=== PATIENT | female | born 1940 | race Caucasian/White ===

== ENCOUNTER → 2020-11-16 07:06 | Outpatient (CLI) | payer MEDICARE, SELFPAY ==
[2020-11-16 18:17] LABS: SARS-CoV-2 RNA PCR Positive
== END ==
PROVIDERS: PCP Physician Assistant; Visit Provider Physician Assistant
DX: U07.1 COVID-19 (principal)
CPT/HCPCS: C9803; U0003; U0005

== ENCOUNTER → 2020-12-14 15:46 | Outpatient (CLI) | payer MEDICARE, SELFPAY ==
--- NOTE | ~2020-12-14 | XR_ITS ---
EXAMINATION: XR lumbar spine 2-3V DATE: 12/14/2020 16:31 INDICATION: Right hip pain. TECHNIQUE: 3 views of lumbar spine were obtained. COMPARISON: Lumbar spine radiographs 06/16/2009 FINDINGS: There is 21 degrees levoscoliosis of lumbar spine. There is 3 mm anterolisthesis of L2 on L 3. Vertebral body heights are normal. There is severely decreased disc height at L2-L3 and L3-L4 and moderately decreased disc height at L4-L5. There is multilevel severe facet joint osteoarthritis. Reji gical clips in the right upper quadrant are likely from cholecystectomy. IMPRESSION: 1. Severe lumbar spondylosis. 2. Lumbar levoscoliosis. Reviewed, dictated and finalized at location A.
--- NOTE | ~2020-12-14 | XR_ITS ---
EXAMINATION: XR hip RT min 3V w AP pelvis DATE: 12/14/2020 16:31 INDICATION: Right hip pain. TECHNIQUE: An anteroposterior view pelvis and 2 views of right hip were obtained. COMPARISON: None. FINDINGS: There is lumbar levoscoliosis and severe spondylosis. No fracture. Osteopenia is noted. The re is mild right hip osteoarthritis characterized by tiny marginal osteophytes. No joint space narrow ing. Left hip joint space is normal. IMPRESSION: 1. Mild right hip osteoarthritis. Reviewed, dictated and finalized at location A.
== END ==
PROVIDERS: PCP Physician Assistant; Visit Provider Physician Assistant
DX: M25.551 Pain in right hip (principal); M47.816 Spondylosis without myelopathy or radiculopathy, lumbar region; M41.86 Other forms of scoliosis, lumbar region; M16.11 Unilateral primary osteoarthritis, right hip
CPT/HCPCS: 72100; 73502

== ENCOUNTER → 2022-04-26 14:54 | Outpatient (CLI) | payer MEDICARE, SELFPAY ==
--- NOTE | ~2022-04-26 | XR_ITS ---
EXAMINATION: XR chest 2V Exam Date/Time: 04/26/2022 15:12 METAL DRILL PRESS OPERATOR HISTORY: Localized edema Comparison: 10/12/2003. RESULT: Lines, tubes, and devices: None. Lungs and pleura: Clear. Cardiomediastinal silhouette: Stable. Other: No acute osseous or upper abdominal finding. IMPRESSION: No acute cardiopulmonary process. Reviewed, dictated and finalized at location K. L DRILL PRESS OPERATOR
--- NOTE | ~2022-04-26 | XR_ITS ---
EXAM: XR tibia fibula RT 2V DATE: 04/26/2022 15:27 HISTORY: Contusion of right lower leg, initial encounter . COMPARISON: None available. FINDINGS: The tips of the medial and lateral malleoli are excluded from the [id number]. Decreased mineralization. No fracture or dislocation. No lytic or blastic lesion. Degenerative change in the ri ght knee. No erosion or periosteal change. Soft tissues within normal limits. IMPRESSION: No acute osseous finding in the visualized right tibia or fibula. The tips of the malleol i are excluded from the [id number]. Reviewed, dictated and finalized at location K. ING MACHINE OPERATOR IMPRESSION: No acute osseous finding in the visualized right tibia or fibula. T he tips of the malleoli are excluded from the [id number].
== END ==
PROVIDERS: PCP Physician Assistant; Visit Provider Physician Assistant
DX: R60.0 Localized edema (principal); S80.11XA Contusion of right lower leg, initial encounter; X58.XXXA Exposure to other specified factors, initial encounter
CPT/HCPCS: 71046; 73590

== ENCOUNTER 2022-05-08 09:37 | Outpatient (CLI) | payer MEDICARE, SELFPAY ==
--- NOTE | 2022-05-08 | ECHO_ITS ---
Patient Info Name: Tamar Solis Age: 82 years : 1940 Gender: Female Ht: 67 in Wt: 142 lbs BSA: 1.75 m2 HR: 89 bpm BP: 126 / 75 mmHg Heart Rhythm: Sinus Rhythm Technical Quality: Good Exam Date: 05/08/2022 9:55 AM Exam Location: [facility] Patient Status: Outpatient Admit Date: 05/08/2022 Staff Ordering Physician: ArdenSho PA-C Banking Consultant: Yeny Pompa RDCS Attending Provider: Sho De Guzman PA-C Exam Type: CA echo doppler color flow Study Info Indications R01.1 - Cardiac murmur, unspecified Complete two-dimensional, color flow and Doppler transthoracic echocardiogram is performed. Summary 1. Complete two-dimensional, color flow and Doppler transthoracic echocardiogram is performed. 2. Normal left and right ventricular size and systolic function. 3. Normal diastolic function. 4. Mild aortic regurgitation and trivial mitral regurgitation. Left Ventricle Left ventricular chamber dimension is normal. Left ventricular systolic function is normal, estimated at 60-65%. The left ventricular diastolic function is normal. Right Ventricle Right ventricular chamber dimension is normal. Left Atria Left atrial chamber dimension is normal. Right Atria Right atrial chamber dimension is normal. Aortic Valve The aortic valve is normal. There is trace aortic valve regurgitation. Pulmonic Valve The pulmonic valve is normal. Mitral Valve The mitral valve has normal leaflets. There is mild mitral valve regurgitation. Tricuspid Valve The tricuspid valve leaflets are normal. Pericardium/Pleural The pericardium appears normal. Aorta The aortic root size at the sinus of Valsalva is normal. Left Ventricular Outflow Tract Name Value Normal LVOT 2D LVOT Diameter 1.94 cm LVOT Doppler LVOT Peak Gradient 4 mmHg LVOT Mean Gradient 2 mmHg LVOT VTI 25.87 cm LVOT VTI/AV VTI Ratio 0.79 LVOT Stroke Volume 76.53 ml LVOT CO 5.09 l/min LVOT CI 2.91 L/min/m2 Pulmonic Valve Name Value Normal RVOT Doppler RVOT Peak Gradient 2 mmHg PV Doppler PV Peak Gradient 3 mmHg Mitral Valve Name Value Normal MV Doppler MV Decel Winston 770.27 cm/s2 MV PHT 0 s MV Area (PHT)
--- NOTE | ~2022-05-08 | US_ITS ---
Duplex Sonography of the bilateral lower extremities: Indication: Swelling Sagittal and transverse B-mode images as well as color-flow imaging were performed on the right and l eft femoral and popliteal veins. B-mode examination was done without and with compression in the tra nsverse plane. There is good visualization of the bilateral common femoral, proximal profunda femora l, superficial femoral, greater saphenous, and popliteal veins. Normal flow was seen on color-flow im aging. Normal compressibility was demonstrated. Bilateral peroneal and posterior tibial veins are al so patent. Impression: No evidence of deep vein thrombosis involving either lower extremity. Reviewed, dictated and finalized at location M. ORK OPERATIONS TECHNICIAN Impression: No evidence of deep vein thrombosis involving either lower extremit y.
== END 2022-05-08 09:38 | disposition home or self-care (01) ==
PROVIDERS: PCP Physician Assistant; Visit Provider Physician Assistant
DX: R01.1 Cardiac murmur, unspecified (principal); R60.0 Localized edema
CPT/HCPCS: 93306; 93970

== ENCOUNTER → 2022-06-01 14:22 | Outpatient (CLI) | payer MEDICARE, SELFPAY ==
--- NOTE | ~2022-06-01 | US_ITS ---
EXAMINATION: US pelvic complete DATE: 06/01/2022 15:17 INDICATION: Leg edema Comparison:No prior studies for comparison. TECHNIQUE: Multiple transabdominal sonographic images of the pelvis performed. FINDINGS: The uterus measures 5 x 2.8 x 4 cm. The endometrial complex measures 3 mm. The ovaries are not visualized. There is no free fluid in the pelvis. There are no abnormal masses seen on either side. IMPRESSION: 1. Unremarkable pelvic ultrasound. Reviewed, dictated and finalized at location A. RVISOR HAIRSPRING FABRICATION
== END ==
PROVIDERS: PCP Physician Assistant; Visit Provider Physician Assistant
DX: R60.0 Localized edema (principal)
CPT/HCPCS: 76856

== ENCOUNTER 2024-01-15 13:35 | Outpatient (CLI) | payer MEDICARE, SELFPAY ==
--- NOTE | ~2024-01-15 | XR_ITS ---
EXAMINATION: XR chest 2V DATE: 01/15/2024 13:48 INDICATION: Cough TECHNIQUE: frontal view of the chest was obtained. COMPARISON: Chest radiograph dated 04/26/2022 FINDINGS: The lungs are clear with no focal airspace opacities, pulmonary edema, pleural effusion or pneumothor ax. The cardiomediastinal silhouette is normal. Mild thoracic spondylosis. Cholecystectomy clips in r ight upper quadrant. IMPRESSION: 1. No acute cardiopulmonary disease. Reviewed, dictated and finalized at location A.
== END 2024-01-15 13:36 | disposition home or self-care (01) ==
LOC: MICIMG 13:37
PROVIDERS: PCP Physician Assistant; Visit Provider Physician Assistant
DX: R05.9 Cough, unspecified (principal)
CPT/HCPCS: 71046

== ENCOUNTER 2024-07-30 15:14 | Outpatient (CLI) | payer MEDICARE, SELFPAY ==
--- NOTE | ~2024-07-30 | US_ITS ---
EXAMINATION: US carotid duplex BI DATE: 07/30/2024 15:55 INDICATION: Carotid bruit TECHNIQUE: Grayscale, color Doppler, and pulsed Doppler images of the cervical carotid arteries were obtained. The degree of vessel stenosis is placed in one of the following categories: normal, <50%, 5 0-69%, >=70% but less than near-occlusion, near-occlusion, or total occlusion. Note that percent sten osis relative to normal distal artery lumen diameter is indirectly measured from velocity measurement s as described by Devni, et al. Radiology 2003; 229:340-346. Notes: Normal: Peak systolic velocity <125 centimeters/sec and no plaque <50%. Peak systolic velocity <125 ( EDV <40; ICA/CCA PSV ratio <2.0; used these factors only a tandem lesions or low cardiac output or co ntralateral disease) 50-69 %: PSV 125-230 (EDV 40-100; ratio 2-4) >= 70% but less than near occlusion: PSV greater than 230 (EDV > 100; ratio> 4.0) Near Occlusion: PSV that is variable; markedly narrowed lumen Occlusion: Absent flow on color/spectral Doppler and no lumen on vaughan scale. COMPARISON: None. FINDINGS: RIGHT: The right common carotid artery (CCA) peak systolic velocity (PSV) is 72 cm/s. The right internal car otid artery (ICA) PSV is 73 cm/s. The right ICA end-diastolic velocity (EDV) is 16 cm/s. The right IC A/CCA PSV ratio is 1.. The external carotid artery (ECA) PSV is 77 cm/s. There is antegrade flow in t he right vertebral artery. LEFT: The left CCA PSV is 65 cm/s. The left ICA PSV is 106 cm/s. The left ICA EDV is 27 cm/s. The left ICA/ CCA PSV ratio is 1.. The ECA PSV is 72 cm/s. There is antegrade flow in the left vertebral artery. IMPRESSION: 1. Less than 50% stenosis in the right internal carotid artery by sonographic criteria. 2. Less than 50% stenosis in the left internal carotid artery by sonographic criteria. Reviewed, dictated and finalized at location B. IMPRESSION: 1. Less than 50% stenosis in the right internal carotid artery by sonographic zaire reynoso. 2. Less than 50% stenosis in the left internal carotid artery by sonographic cinthia yanez.
--- OUTSIDE RECORDS SUMMARY | 2024-07-30 16:31 | XMS_ITS | Data Portability ---
Author Organization [place] [employer], Main Office Address [address] [place] [address] Care Team Providers Care Stamp Collector Name Role Phone VIBHA CHEN Primary Care Provider VIBHA CHEN Referring Provider [phone] Assessment Encounter Date Assessment Date Assessment LastModified by Organization Details LastModified Time 10/12/2022 10/12/2022 Patient presents knee pain left. She has arthritis and has had previous conservative treatment. We talked about surgical intervention and she is not ready for that at this point. She would like a shot of cortisone this done with 20 mg Kenalog 4 cc 1% lidocaine the left knee. She has valgus deformity grinding crepitus and pain. X-rays show [id number] arthritis. She will continue with her exercises. For prescription drug management will try Voltaren 75 mg for pain and inflammation. I will see her back in a month for follow-up and see how she is progressing at that point discussed. vince Not available 10/12/2022 14:05:51 Plan of Treatment Reminders Order Date Submit Date Provider Last Modified By Organization Details Last Modified Time Details Appointments None recorded. Lab hepatic function panel, serum 2022 024 [facility], [address], [place], [address], 4 03:50:19 BMP, serum or plasma 2022 024 [facility], [address], [place], [address], 4 03:50:18 CBC w/ auto diff 2022 024 [facility], [place], [address], 4 03:50:20 TSH + free T4, serum 2022 024 [facility], [address], [place], [address], 4 03:50:15 lipid panel, serum 2022 024 [facility], [address], [place], [address], 4 03:50:17 Referral None recorded. Procedures injection/a spiration joint/bursa (PROC) - in office procedure, administere d by provider 2022 023 [email or web address] In-Office Order, Internal Use Only DO Not Attach Compendium DO Not Attach Compendium, Do Not Delete/merge, [id number] 3 13:40:46 Surgeries None recorded. Imaging None recorded. Medication Orders Kenalog 10 mg/mL suspension for injection [email or web address] [id number], [address], [id number], 3 15:12:11 ropivacaine (PF) 5 mg/mL (0.5 %) injection solution 2022 023 [email or web address] 4 [facility] #[id number], [address], [id number], 3 15:12:24 diclofenac sodium 75 mg tablet,miri yed release 2022 023 [email or web address] 4 [facility] #[id number], [address], [id number], 3 11:25:38 Patient TargetsNo targets recorded. Patient InstructionsNo instructions recorded. Reason for Referral None Reported. Results Created Date Observation Date Name Description Value Unit Range Abnormal Flag Note LastModifiedBy Organization Detail LastModifiedTime 04/27/19 23 04/28/2022 URINA LYSIS , COMPL ETE color yellow yellow normal Not Available [address], [address], 04/28/2022 13:42:43 04/27/19 23 04/28/2022 URINA LYSIS , COMPL ETE appearance clear clear normal Not Available [address], [address], 04/28/2022 13:42:43 04/27/19 23 04/28/2022 URINA LYSIS , COMPL ETE specific gravity 1.007 1.001- 1.035 normal Not Available [address], [address], 04/28/2022 13:42:43 04/27/19 23 04/28/2022 URINA LYSIS , COMPL ETE pH 7.5 5.0-8. 0 normal Not Available [address], [address], 04/28/2022 13:42:43 04/27/19 23 04/28/2022 URINA LYSIS , COMPL ETE glucose negati ve negati ve normal Not Available [address], [address], 04/28/2022 13:42:43 04/27/19 23 04/28/2022 URINA LYSIS , COMPL ETE bilirubin negati ve negati ve normal Not Available [address], [address], 04/28/2022 13:42:43 04/27/19 23 04/28/2022 URINA LYSIS , COMPL ETE ketones negati ve negati ve normal Not Available [address], [address], 04/28/2022 13:42:43 04/27/19 23 04/28/2022 URINA LYSIS , COMPL ETE occult blood negati ve negati ve normal Not Available [address], [address], 04/28/2022 13:42:43 04/27/19 23 04/28/2022 URINA LYSIS , COMPL ETE protein negati ve negati ve normal Not Available [address], [address], 04/28/2022 13:42:43 04/27/19 23 04/28/2022 URINA LYSIS , COMPL ETE nitrite negati ve negati ve normal Not Available [address], [address], 04/28/2022 13:42:43 04/27/19 23 04/28/2022 URINA LYSIS , COMPL ETE leukocyte esterase negati ve negati ve normal Not Available [address], [address], 04/28/2022 13:42:43 04/27/19 23 04/28/2022 URINA LYSIS , COMPL ETE WBC none seen /hpf < or = 5 normal Not Available [address], [address], 04/28/2022 13:42:43 04/27/19 23 04/28/2022 URINA LYSIS , COMPL ETE RBC none seen /hpf < or = 2 normal Not Available [facility] [address], [address], 04/28/2022 13:42:43 04/27/1904/28/2022 URINA LYSIS , COMPL ETE squamous epithelial cells none seen /hpf < or = 5 normal Not Available [address], [address], 04/28/2022 13:42:43 04/27/19 23 04/28/2022 URINA LYSIS , COMPL ETE bacteria none seen /hpf none seen normal Not Available [address], [address], 04/28/2022 13:42:43 04/27/19 23 04/28/2022 URINA LYSIS , COMPL ETE hyaline cast none seen /lpf none seen normal Not Available [address], [address], 04/28/2022 13:42:43 04/27/19 23 04/28/2022 CBC (INCL UDES DIFF/ PLT) hemoglobin 12.3 g/dL 11.7-1 5.5 normal Not Available [address], [address], 04/28/2022 13:42:42 04/27/19 23 04/28/2022 CBC (INCL UDES DIFF/ PLT) white blood cell count 4.3 thous and/u L 3.8-10 .8 normal Not Available [address], [address], 04/28/2022 13:42:42 04/27/19 23 04/28/2022 CBC (INCL UDES DIFF/ PLT) red blood cell count 4.07 serge on/uL 3.80-5 .10 normal Not Available [address], [address], 04/28/2022 13:42:42 04/27/19 23 04/28/2022 CBC (INCL UDES DIFF/ PLT) hematocrit 37.8 % 35.0-4 5.0 normal Not Available [address], [address], 04/28/2022 13:42:42 04/27/19 23 04/28/2022 CBC (INCL UDES DIFF/ PLT) MCV 92.9 fL 80.0-1 00.0 normal Not Available [address] [place], [address], 04/28/2022 13:42:42 04/27/19 23 04/28/2022 CBC (INCL UDES DIFF/ PLT) MCH 30.2 pg 27.0-3 3.0 normal Not Available [facility] [address], [address], 04/28/2022 13:42:42 04/27/19 23 04/28/2022 CBC (INCL UDES DIFF/ PLT) MCHC 32.5 g/dL 32.0-3 6.0 normal Not Available [facility] [address], [address], 04/28/2022 13:42:42 04/27/19 23 04/28/2022 CBC (INCL UDES DIFF/ PLT) RDW 12.7 % 11.0-1 5.0 normal Not Available [facility] [address], [address], 04/28/2022 13:42:42 04/27/19 23 04/28/2022 CBC (INCL UDES DIFF/ PLT) platelet count 207 thous and/u L 140-40 0 normal Not Available [address], [address], 04/28/2022 13:42:42 04/27/19 23 04/28/2022 CBC (INCL UDES DIFF/ PLT) MPV 10.3 fL 7.5-12 .5 normal Not Available [facility] [address], [address], 04/28/2022 13:42:42 04/27/19 23 04/28/2022 CBC (INCL UDES DIFF/ PLT) absolute neutrophils 2335 cells /uL 1500-7 800 normal Not Available [facility] [address], [address], 04/28/2022 13:42:42 04/27/19 23 04/28/2022 CBC (INCL UDES DIFF/ PLT) absolute lymphocytes 1367 cells /uL 850-39 00 normal Not Available [address], [address], 04/28/2022 13:42:42 04/27/19 23 04/28/2022 CBC (INCL UDES DIFF/ PLT) absolute monocytes 318 cells /uL 200-95 0 normal Not Available [address], [address], 04/28/2022 13:42:42 04/27/19 23 04/28/2022 CBC (INCL UDES DIFF/ PLT) absolute eosinophils 189 cells /uL 15-500 normal Not Available [facility] [address], [address], 04/28/2022 13:42:42 04/27/19 23 04/28/2022 CBC (INCL UDES DIFF/ PLT) absolute basophils 90 cells /uL 0-200 normal Not Available [facility] [address], [address], 04/28/2022 13:42:42 04/27/19 23 04/28/2022 CBC (INCL UDES DIFF/ PLT) neutrophils 54.3 % normal Not Available [facility] [address], [address], 04/28/2022 13:42:42 04/27/19 23 04/28/2022 CBC (INCL UDES DIFF/ PLT) lymphocytes 31.8 % normal Not Available [facility] [address], [address], 04/28/2022 13:42:42 04/27/19 23 04/28/2022 CBC (INCL UDES DIFF/ PLT) monocytes 7.4 % normal Not Available [facility] [address], [address], 04/28/2022 13:42:42 04/27/19 23 04/28/2022 CBC (INCL UDES DIFF/ PLT) eosinophils 4.4 % normal Not Available [address], [address], 04/28/2022 13:42:42 04/27/19 23 04/28/2022 CBC (INCL UDES DIFF/ PLT) basophils 2.1 % normal Not Available [facility] [address], [address], 04/28/2022 13:42:42 04/27/19 23 04/28/2022 B TYPE NATRI URETI C PEPTI DE (BNP) B type natriuretic peptide (BNP) 90 pg/mL <100 normal BNP level s incre ase with age in the gener al popul ation with the highe st value s seen in indiv idual s great er than 75 years of age. Refer ence: J. Am. Juan Jose. Cardi ol. 2002; 40:97 6-982 . Not Available [address], [address], 04/28/2022 13:42:41 04/27/19 23 04/28/2022 HEPAT IC FUNCT ION PANEL protein, total 5.9 g/dL 6.1-8. 1 low Not Available [address], [address], 04/28/2022 13:42:40 04/27/1904/28/2022 HEPAT IC FUNCT ION PANEL albumin 4.0 g/dL 3.6-5. 1 normal Not Available [facility] [address], [address], 04/28/2022 13:42:40 04/27/19 23 04/28/2022 HEPAT IC FUNCT ION PANEL globulin 1.9 g/dL_ (calc ) 1.9-3. 7 normal Not Available [facility] [address], [address], 04/28/2022 13:42:40 04/27/19 23 04/28/2022 HEPAT IC FUNCT ION PANEL albumin/glob ulin ratio 2.1 (calc ) 1.0-2. 5 normal Not Available [address] [address] [place], [address], 04/28/2022 13:42:40 04/27/19 23 04/28/2022 HEPAT IC FUNCT ION PANEL bilirubin, total 0.6 mg/dL 0.2-1. 2 normal Not Available [address] [address] [place], [address], 04/28/2022 13:42:40 04/27/1904/28/2022 HEPAT IC FUNCT ION PANEL bilirubin, direct 0.1 mg/dL < or = 0.2 normal Not Available [address], [address], 04/28/2022 13:42:40 04/27/19 23 04/28/2022 HEPAT IC FUNCT ION PANEL bilirubin, indirect 0.5 mg/dL _(marysol c) 0.2-1. 2 normal Not Available [address], [address], 04/28/2022 13:42:40 04/27/19 23 04/28/2022 HEPAT IC FUNCT ION PANEL alkaline phosphatase 87 U/L 37-153 normal Not Available [address] [address] [place], [address], 04/28/2022 13:42:40 04/27/19 23 04/28/2022 HEPAT IC FUNCT ION PANEL AST 15 U/L 10-35 normal Not Available [address], [address], 04/28/2022 13:42:40 04/27/19 23 04/28/2022 HEPAT IC FUNCT ION PANEL ALT 13 U/L 6-29 normal Not Available [address] [place], [address], 04/28/2022 13:42:40 04/27/19 23 04/28/2022 BASIC METAB OLIC PANEL glucose 87 mg/dL 65-99 normal Fasti ng refer ence inter otoniel Not Available [address], [address], 04/28/2022 13:42:39 04/27/19 23 04/28/2022 BASIC METAB OLIC PANEL urea nitrogen (BUN) 16 mg/dL 7-25 normal Not Available [facility] [address], [address], 04/28/2022 13:42:39 04/27/1904/28/2022 BASIC METAB OLIC PANEL creatinine 0.68 mg/dL 0.60-0 .95 normal Not Available [address], [address], 04/28/2022 13:42:39 04/27/19 23 04/28/2022 BASIC METAB OLIC PANEL eGFR 87 mL/mi n/1.7 3m2 > or = 60 normal The eGFR is based on the CKD-E PI 2020 equat ion. To calcu late the new eGFR from a previ ous Creat inine or Cysta tin C resul t, go to https ://stella kramer.guadalupe esposito/jesica lyons s/ kdoqi /gfr% 5Fcal culat or Not Available [address], [address], 04/28/2022 13:42:39 04/27/1904/28/2022 BASIC METAB OLIC PANEL BUN/creatini ne ratio not applic able (calc ) 6-22 Not Available [address], [address], 04/28/2022 13:42:39 04/27/19 23 04/28/2022 BASIC METAB OLIC PANEL sodium 145 mmol/ L 135-14 6 normal Not Available [address], [address], 04/28/2022 13:42:39 04/27/19 23 04/28/2022 BASIC METAB OLIC PANEL potassium 4.6 mmol/ L 3.5-5. 3 normal Not Available [address], [address], 04/28/2022 13:42:39 04/27/19 23 04/28/2022 BASIC METAB OLIC PANEL chloride 108 mmol/ L 98-110 normal Not Available [address], [address], 04/28/2022 13:42:39 04/27/19 23 04/28/2022 BASIC METAB OLIC PANEL carbon dioxide 29 mmol/ L 20-32 normal Not Available [address], [address], 04/28/2022 13:42:39 04/27/19 23 04/28/2022 BASIC METAB OLIC PANEL calcium 8.9 mg/dL 8.6-10 .4 normal Not Available [address], [address], 04/28/2022 13:42:39 04/27/19 23 04/28/2022 LIPID PANEL WITH RATIO S triglyceride s 122 mg/dL <150 normal Not Available [address], [address], 04/28/2022 13:42:38 04/27/19 23 04/28/2022 LIPID PANEL WITH RATIO S cholesterol, total 231 mg/dL <200 high Not Available [address], [address], 04/28/2022 13:42:38 04/27/19 23 04/28/2022 LIPID PANEL WITH RATIO S HDL cholesterol 68 mg/dL > or = 50 normal Not Available [address], [address], 04/28/2022 13:42:38 04/27/1904/28/2022 LIPID PANEL WITH RATIO S LDL-choleste rol 139 mg/dL _(marysol c) high Refer ence range : <100 Avel able range <100 mg/dL for prima ry preve ntion ; <70 mg/dL for patie nts with CHD or diabe tic patie nts with > or = 2 CHD risk facto rs. LDL-C is now calcu lated using the Ashlyn n-Hop kins calcu lateleni n, which is a valid ated novel es vogt r accur acy than the Fried cynthia equat ion in the estim ation of LDL-C . Ashlyn waller SS et al. DEMETRA. 2013; 310(1 9): 2061- 2068 (http ://ed ucati on.[employer]. com/f aq/FA Q164) Not Available [address], [address], 04/28/2022 13:42:38 04/27/1904/28/2022 LIPID PANEL WITH RATIO S chol/HDLC ratio 3.4 (calc ) <5.0 normal Not Available [address], [address], 04/28/2022 13:42:38 04/27/1904/28/2022 LIPID PANEL WITH RATIO S LDL/HDL ratio 2.0 (calc ) Below avera ge Risk: <2.34 Magnolia ge Risk: 2.35- 4.12 Moder ate Risk: 4.13- 5.56 High Risk: >5.57 Not Available [address], [address], 04/28/2022 13:42:38 04/27/19 23 04/28/2022 LIPID PANEL WITH RATIO S non HDL cholesterol 163 mg/dL _(marysol c) <130 high For patie nts with diabe lorne plus 1 major ASCVD risk facto r, treat ing to a non-H DL-C goal of <100 mg/dL (LDL- C of <70 mg/dL ) is mikey waller. Not Available [address] [address] [place], [address], 04/28/2022 13:42:38 04/27/19 23 04/28/2022 TSH+F REE T4 TSH 2.60 mIU/L 0.40-4 .50 normal Not Available [facility] [address] [address] [place], [address], 04/28/2022 13:42:38 04/27/19 23 04/28/2022 TSH+F REE T4 T4, free 1.1 NG/dL 0.8-1. 8 normal Not Available [facility] [address] [place], [address], 04/28/2022 13:42:38 07/23/19 24 07/24/2023 TSH+F REE T4 TSH 2.83 mIU/L 0.40-4 .50 normal Not Available [address], [address], 07/24/2023 03:50:15 07/23/19 24 07/24/2023 TSH+F REE T4 T4, free 1.0 NG/dL 0.8-1. 8 normal Not Available [facility] [address] [place], [address], 07/24/2023 03:50:15 07/23/19 24 07/24/2023 LIPID PANEL WITH RATIO S cholesterol, total 242 mg/dL <200 high Not Available [address], [address], 07/24/2023 03:50:17 07/23/19 24 07/24/2023 LIPID PANEL WITH RATIO S HDL cholesterol 68 mg/dL > or = 50 normal Not Available [facility] [address], [place], [address], 07/24/2023 03:50:17 07/23/19 24 07/24/2023 LIPID PANEL WITH RATIO S triglyceride s 125 mg/dL <150 normal Not Available [address], [address], 07/24/2023 03:50:17 07/23/19 24 07/24/2023 LIPID PANEL WITH RATIO S LDL-choleste rol 149 mg/dL _(marysol c) high Refer ence range : <100 Avel able range <100 mg/dL for prima ry preve ntion ; <70 mg/dL for patie nts with CHD or diabe tic patie nts with > or = 2 CHD risk facto rs. LDL-C is now calcu lated using the Ashlyn n-Hop kins calcu skylar n, which is a valid ated novel es vogt r accur acy than the Fried cynthia equat ion in the estim ation of LDL-C . Ashlyn waller SS et al. DEMETRA. 2013; 310(1 9): 2061- 2068 (http ://ed ucati on.[employer]. com/f aq/FA Q164) Not Available [address], [address], 07/24/2023 03:50:17 07/23/19 24 07/24/2023 LIPID PANEL WITH RATIO S chol/HDLC ratio 3.6 (calc ) <5.0 normal Not Available [address], [address], 07/24/2023 03:50:17 07/23/19 24 07/24/2023 LIPID PANEL WITH RATIO S LDL/HDL ratio 2.2 (calc ) Below avera ge Risk: <2.34 [place] ge Risk: 2.35- 4.12 Moder ate Risk: 4.13- 5.56 High Risk: >5.57 Not Available [address], [address], 07/24/2023 03:50:17 07/23/19 24 07/24/2023 LIPID PANEL WITH RATIO S non HDL cholesterol 174 mg/dL _(marysol c) <130 high For patie nts with diabe lorne plus 1 major ASCVD risk facto r, treat ing to a non-H DL-C goal of <100 mg/dL (LDL- C of <70 mg/dL ) is consi dered a thera peuti c optio n. Not Available [address] [address] [place], [address], 07/24/2023 03:50:17 07/23/19 24 07/24/2023 BASIC METAB OLIC PANEL glucose 83 mg/dL 65-99 normal Fasti ng refer ence inter otoniel Not Available [address] [address] [place], [address], 07/24/2023 03:50:18 07/23/19 24 07/24/2023 BASIC METAB OLIC PANEL urea nitrogen (BUN) 23 mg/dL 7-25 normal Not Available [address] [place], [address], 07/24/2023 03:50:18 07/23/19 24 07/24/2023 BASIC METAB OLIC PANEL creatinine 0.77 mg/dL 0.60-0 .95 normal Not Available [address] [place], [address], 07/24/2023 03:50:18 07/23/19 24 07/24/2023 BASIC METAB OLIC PANEL eGFR 76 mL/mi n/1.7 3m2 > or = 60 normal Not Available [address], [address], 07/24/2023 03:50:18 07/23/19 24 07/24/2023 BASIC METAB OLIC PANEL BUN/creatini ne ratio SEE NOTE: (calc ) 6-22 Not Repor yuniel: BUN and Creat inine are withi n refer ence range . Not Available [facility] [address], [address], 07/24/2023 03:50:18 07/23/19 24 07/24/2023 BASIC METAB OLIC PANEL sodium 142 mmol/ L 135-14 6 normal Not Available [address], [address], 07/24/2023 03:50:18 07/23/19 24 07/24/2023 BASIC METAB OLIC PANEL potassium 4.1 mmol/ L 3.5-5. 3 normal Not Available [facility] [address], [address], 07/24/2023 03:50:18 07/23/19 24 07/24/2023 BASIC METAB OLIC PANEL chloride 108 mmol/ L 98-110 normal Not Available [address], [address], 07/24/2023 03:50:18 07/23/19 24 07/24/2023 BASIC METAB OLIC PANEL carbon dioxide 29 mmol/ L 20-32 normal Not Available [address], [address], 07/24/2023 03:50:18 07/23/19 24 07/24/2023 BASIC METAB OLIC PANEL calcium 8.3 mg/dL 8.6-10 .4 low Not Available [address], [address], 07/24/2023 03:50:18 07/23/19 24 07/24/2023 HEPAT IC FUNCT ION PANEL protein, total 5.5 g/dL 6.1-8. 1 low Not Available [address], [address], 07/24/2023 03:50:19 07/23/19 24 07/24/2023 HEPAT IC FUNCT ION PANEL albumin 3.7 g/dL 3.6-5. 1 normal Not Available [address] [address] [place], [address], 07/24/2023 03:50:19 07/23/19 24 07/24/2023 HEPAT IC FUNCT ION PANEL globulin 1.8 g/dL_ (calc ) 1.9-3. 7 low Not Available [address] [address] [place], [address], 07/24/2023 03:50:19 07/23/19 24 07/24/2023 HEPAT IC FUNCT ION PANEL albumin/glob ulin ratio 2.1 (calc ) 1.0-2. 5 normal Not Available [address], [address], 07/24/2023 03:50:19 07/23/19 24 07/24/2023 HEPAT IC FUNCT ION PANEL bilirubin, total 0.4 mg/dL 0.2-1. 2 normal Not Available [address], [address], 07/24/2023 03:50:19 07/23/19 24 07/24/2023 HEPAT IC FUNCT ION PANEL bilirubin, direct 0.1 mg/dL < or = 0.2 normal Not Available [address], [address], 07/24/2023 03:50:19 07/23/19 24 07/24/2023 HEPAT IC FUNCT ION PANEL bilirubin, indirect 0.3 mg/dL _(marysol c) 0.2-1. 2 normal Not Available [address], [address], 07/24/2023 03:50:19 07/23/19 24 07/24/2023 HEPAT IC FUNCT ION PANEL alkaline phosphatase 96 U/L 37-153 normal Not Available [facility] [address], [address], 07/24/2023 03:50:19 07/23/19 24 07/24/2023 HEPAT IC FUNCT ION PANEL AST 12 U/L 10-35 normal Not Available [address], [address], 07/24/2023 03:50:19 07/23/19 24 07/24/2023 HEPAT IC FUNCT ION PANEL ALT 13 U/L 6-29 normal Not Available [address], [address], 07/24/2023 03:50:19 07/23/19 24 07/24/2023 CBC (INCL UDES DIFF/ PLT) white blood cell count 4.7 thous and/u L 3.8-10 .8 normal Not Available [address], [address], 07/24/2023 03:50:20 07/23/19 24 07/24/2023 CBC (INCL UDES DIFF/ PLT) red blood cell count 3.93 serge on/uL 3.80-5 .10 normal Not Available [address], [address], 07/24/2023 03:50:20 07/23/19 24 07/24/2023 CBC (INCL UDES DIFF/ PLT) hemoglobin 12.3 g/dL 11.7-1 5.5 normal Not Available [address], [address], 07/24/2023 03:50:20 07/23/19 24 07/24/2023 CBC (INCL UDES DIFF/ PLT) hematocrit 36.6 % 35.0-4 5.0 normal Not Available [address], [address], 07/24/2023 03:50:20 07/23/19 24 07/24/2023 CBC (INCL UDES DIFF/ PLT) MCV 93.1 fL 80.0-1 00.0 normal Not Available [address], [address], 07/24/2023 03:50:20 07/23/19 24 07/24/2023 CBC (INCL UDES DIFF/ PLT) MCH 31.3 pg 27.0-3 3.0 normal Not Available [address], [address], 07/24/2023 03:50:20 07/23/19 24 07/24/2023 CBC (INCL UDES DIFF/ PLT) MCHC 33.6 g/dL 32.0-3 6.0 normal Not Available [address], [address], 07/24/2023 03:50:20 07/23/19 24 07/24/2023 CBC (INCL UDES DIFF/ PLT) RDW 13.2 % 11.0-1 5.0 normal Not Available [address], [address], 07/24/2023 03:50:20 07/23/19 24 07/24/2023 CBC (INCL UDES DIFF/ PLT) platelet count 197 thous and/u L 140-40 0 normal Not Available [address], [address], 07/24/2023 03:50:20 07/23/19 24 07/24/2023 CBC (INCL UDES DIFF/ PLT) MPV 10.0 fL 7.5-12 .5 normal Not Available [address], [address], 07/24/2023 03:50:20 07/23/19 24 07/24/2023 CBC (INCL UDES DIFF/ PLT) absolute neutrophils 2303 cells /uL 1500-7 800 normal Not Available [address], [address], 07/24/2023 03:50:20 07/23/19 24 07/24/2023 CBC (INCL UDES DIFF/ PLT) absolute lymphocytes 1669 cells /uL 850-39 00 normal Not Available [address], [address], 07/24/2023 03:50:20 07/23/19 24 07/24/2023 CBC (INCL UDES DIFF/ PLT) absolute monocytes 357 cells /uL 200-95 0 normal Not Available [address], [address], 07/24/2023 03:50:20 07/23/19 24 07/24/2023 CBC (INCL UDES DIFF/ PLT) absolute eosinophils 301 cells /uL 15-500 normal Not Available [address], [address], 07/24/2023 03:50:20 07/23/19 24 07/24/2023 CBC (INCL UDES DIFF/ PLT) absolute basophils 71 cells /uL 0-200 normal Not Available [employer] [address], [address], 07/24/2023 03:50:20 07/23/19 24 07/24/2023 CBC (INCL UDES DIFF/ PLT) neutrophils 49 % normal Not Available [address], [address], 07/24/2023 03:50:20 07/23/19 24 07/24/2023 CBC (INCL UDES DIFF/ PLT) lymphocytes 35.5 % normal Not Available [address], [address], 07/24/2023 03:50:20 07/23/19 24 07/24/2023 CBC (INCL UDES DIFF/ PLT) monocytes 7.6 % normal Not Available [address], [address], 07/24/2023 03:50:20 07/23/19 24 07/24/2023 CBC (INCL UDES DIFF/ PLT) eosinophils 6.4 % normal Not Available [facility] [address] [place], [address], 07/24/2023 03:50:20 07/23/19 24 07/24/2023 CBC (INCL UDES DIFF/ PLT) basophils 1.5 % normal Not Available [facility] [address] [place], [address], 07/24/2023 03:50:20 05/09/19 23 05/08/2022 US, dawson mancini s, idris extre mity No observ ation record ed. MIGRATION. [facility] (Imaging) [address] [place] [address] [address] [facility], [place], [address], 06/14/2022 00:50:57 05/10/19 23 04/26/2022 XR, tibia + fibul a No observ ation record ed. MIGRATION. [facility] [address], [place], [address], 06/14/2022 00:50:57 05/10/19 23 05/08/2022 US, echoc ardio gram, trans thora cic, compl ete, w/ color flow No observ ation record ed. MIGRATION. [facility] (Cardiology & Emg) [address] [place] [address] [address], [place], [address], 06/14/2022 00:50:57 05/11/19 23 04/26/2022 XR, chest , 2 view No observ ation record ed. MIGRATION. [facility] [address], [place], [address], 06/14/2022 00:50:57 06/02/19 23 06/01/2022 US, pelvi s, compl ete No observ ation record ed. [id number] [facility] [address], [place], [address], 06/14/2022 00:50:57 Result Notes None recorded. Problems Name Problem SNOMED Code Status Onset Date Resolution Date Notes Provider Name and Address Organization Details Recorded Time Edema of lower extremity 254037511 Active 2022 Not Available [facility] 3 00:[facility]:25 Contusion of right lower leg 9360764718182 9109 Active 2022 Not Available [facility] 3 00:46:25 Abrasion of skin of right lower leg 2966250074350 9107 Active 2021 [facility] Available [facility] 3 00:46:25 Benign essential hypertensi on 7039550 Active 2019 Not Available [facility] 3 00:46:25 Asthma 765913485 Active 2019 Not Available [facility] 3 00:46:25 Accidental fall Active Not Available [facility] 3 00:46:25 Lumbar spondylosi s 423824790 Active 2021 Not Available [facility] 3 00:46:26 Long-term drug therapy Active 2021 Not Available [facility] 3 00:46:26 Current tear of lateral cartilage AND/OR meniscus of knee Active Not Available [facility] 3 00:46:26 Knee pain Active Not Available [facility] 3 00:46:26 Pain in right hip joint 7725582837750 02 Active 2021 Not Available [facility] 3 00:46:26 Osteoarthr itis of left knee joint 6114500172231 09 Active 2021 Not Available [facility] 3 00:46:26 Hypothyroi dism following radioiodin e therapy 46742086 Active 2021 Not Available [facility] 3 00:46:26 Hypothyroi dism 56874270 Active 2018 Not Available [facility] 3 00:46:27 Pain of left knee joint 7411915979881 07 Active 2021 Not Available [facility] 3 00:46:27 Upper respirator y infection 38401811 Active 2021 Not Available [facility] 3 00:46:27 Hyperlipid emia 96891586 Active 2021 Not Available [facility] 3 00:46:27 Derangemen t of knee 10609694 Active Not Available [facility] 3 00:46:27 COVID-19 917665018 Active 2021 Not Available [facility] 3 00:46:27 Heart murmur 94373538 Active 2022 Not Available [facility] 3 00:46:28 Pruritic rash 44615918 Active 2022 WILIAM Rodríguez [address], [place], [address] , [facility] 3 12:20:49 Allergic rhinitis 53264554 Active 2023 WILIAM Rodríguez [address], [place], [address] , [facility] 4 13:12:48 Problem Notes None recorded. Procedures Surgical History Date Name Laterality Status Provider Name and Address Organization Details Recorded Time 10/13/19 23 Ortho - Cortisone Injection completed Moises Dukes MD [address], [place], [address], [facility] 10/12/2022 14:04:53 09/15/19 04 Date of Last Colonoscopy completed Not Available [facility] 06/14/2022 00:42:11 09/15/19 04 Colonoscopy completed Not Available [facility] 06/14/2022 00:42:15 procedure on tibia completed Not Available [facility] 06/14/2022 00:42:15 Tonsillectomy completed Not Available [facility] 06/14/2022 00:42:15 Cholecystectomy completed Not Available [facility] 06/14/2022 00:42:15 Sinus Surgery completed Not Available [facility] 06/14/2022 00:42:15 Imaging Results Imaging Date Name Status LastModified by Organiz ation Details LastModified Time 04/26/2022 XR, tibia + fibula completed [id number] [facility] [address], [place], [address], 06/14/2022 00:50:57 04/26/2022 XR, chest, 2 view completed [id number] 026 [facility] [address], [place], [address], 06/14/2022 00:50:57 05/08/2022 US, duplex, venous, lower extremity completed [id number] 026 [facility] (Imaging) [address] [place] [address] [address], [place], [address], 06/14/2022 00:50:57 05/08/2022 US, echocardiogram , transthoracic, complete, w/ color flow completed MIGRATION.[id number] [address] [place] [address] (Cardiology & Emg) [address] [place] [address] [address], [place], [address], 06/14/2022 00:50:57 06/01/2022 US, pelvis, complete completed [id number] 026 [facility] [address], [place], [address], 06/14/2022 00:50:57 Procedure Notes None recorded. Medical Equipment None Reported. Allergies Allergen ID Allergen Name Allergen Category Reaction Reaction Severity Criticality Documentation Date Start Date Code Code System Note Provider Name and Address Organization Details Recorded Time 291 azithromy chio medicatio n Not available Not available Not available 06/14/2022 12265 RxNorm Not Available [facility] 00:50:26 Medications Name Sig Start Date Stop Date Status Note LastModified by Organization Details LastModified Time verapamil ER (SR) 120 mg tablet,ex tended release TAKE 2 TABLETS BY MOUTH EVERY DAY active Not Available Not Available No t Available amoxicill in 500 mg capsule TAKE 1 CAPSULE FOUR TIMES DAILY 11/22 completed Not Available Not Available Not Available prednison e 10 mg tablet TAKE 1 TABLET BY MOUTH 3 TIMES A DAY FOR 3 DAYS THEN 1 TABLET BY MOUTH 2 TIMES A DAY FOR 2 DAYS THEN 1 TABLET BY MOUTH ONCE A DAY FOR 1 DAYS 04/26 completed Not Available Not Available Not Available cetirizin e 10 mg tablet TAKE 1 TABLET BY MOUTH DAILY NEEDED active Not Available Not Available No t Available benzonata te 200 mg capsule Take 1 capsule 3 times a day by oral route. 05/04 completed Not Available Not Available Not Available clobetaso l 0.05 % topical cream APPLY A THIN LAYER TO THE AFFECTED AREA TOPICALL Y TWICE DAILY active Not Available Not Available No t Available potassium chloride ER 10 mEq tablet,ex tended release Take 1 tablet every day by oral route for 5 days. active Not Available Not Available No t Available levothyro xine 75 mcg tablet TAKE 1 TABLET BY MOUTH EVERY MORNING active Not Available Not Available No t Available prednison e 10 mg tablets in a dose pack Take 1 tab by mouth, 3 times a day for 3 daysTake 1 tab by mouth 2 times a day for 2 daysTake 1 tab by mouth once a day for 1 day 04/26 completed Not Available Not Available Not Available amoxicill in 875 mg tablet TAKE 1 TABLET BY MOUTH EVERY 12 HOURS active Not Available Not Available No t Available alprazola m 0.25 mg tablet Take 1 tablet twice a day by oral route as needed. active Not Available Not Available No t Available Kenalog 10 mg/mL suspensio n for injection Take 20 mg by injectio n route. 12/11 completed [facility]: [id number] 08-03 Not Available Not Available Not Available cephalexi n 500 mg capsule Take 1 capsule every 6 hours by oral route. active Not Available Not Available No t Available erythromy chio 5 mg/gram (0.5 %) eye ointment APPLY 1 CM RIBBON INTO THE LOWER CONJUNCT IVAL SAC(S) IN THE Left EYE(S) BY OPHTHALM IC ROUTE 3 TIMES PER DAY active Not Available Not Available No t Available prednison e 50 mg tablet Take 1 tablet every day by oral route for 5 days. active Not Available Not Available No t Available diclofena c sodium 75 mg tablet,de layed release TAKE 1 TABLET BY MOUTH TWICE DAILY 12/12 completed Not Available Not Available Not Available furosemid e 20 mg tablet Take 1 tablet every day by oral route for 5 days. active Not Available Not Available No t Available cefuroxim e axetil 500 mg tablet Take 1 tablet every 12 hours by oral route. active Not Available Not Available No t Available methylpre dnisolone 4 mg tablets in a dose pack FOLLOW PACKAGE DIRECTIO NS STARTING 02/07/23 active Not Available Not Available No t Available albuterol sulfate HFA 90 mcg/actua tion aerosol inhaler Inhale 2 puffs every 4 hours by inhalati on route as needed. active Not Available Not Available No t Available amoxicill in 875 mg-potass ium clavulana te 125 mg tablet TAKE 1 TABLET BY MOUTH TWICE DAILY UNTIL GONE 11/23 completed Not Available Not Available Not Available ezetimibe 10 mg tablet TAKE 1 TABLET BY MOUTH EVERY DAY AT BEDTIME 05/25 completed Not Available Not Available Not Available Allergy and Congestio n Relief 5 mg-120 mg tablet,ex tend release 12 hr TAKE 1 TABLET BY MOUTH EVERY 12 HOURS 05/04 completed Not Available Not Available Not Available lactulose 10 gram/15 mL oral solution TAKE 15 ML BY MOUTH DAILY NEEDED FOR 3 DAYS active Not Available Not Available No t Available levothyro xine 06/14 completed Not Available Not Available Not Available Prilosec OTC 11/22 completed Not Available Not Available Not Available lidocaine (PF) 10 mg/mL (1 %) injection solution In office injectio n administ ered by the provider 10/19 completed [facility]: 0409-427 17 Not Available Not Available Not Available hydrochlo rothiazid e 12.5 mg tablet TAKE 1 TABLET BY MOUTH EVERY DAY active Not Available Not Available No t Available budesonid e-formote rol HFA 160 mcg-4.5 mcg/actua tion aerosol inhaler Inhale 2 puffs twice a day by inhalati on route. 12/12 completed print out RX for patient please. Not Available Not Available Not Available ropivacai ne (PF) 5 mg/mL (0.5 %) injection solution Take 20 mg by injectio n route. 12/11 completed [facility] 63287-87 07-15 Not Available Not Available Not Available Claritin- D 05/04 completed Not Available Not Available Not Available Paxlovid 300 mg (150 mg x 2)-100 mg tablets in a dose pack 300 mg nirmatre lvir (two 150 mg tablets) with 100 mg ritonavi r (one 100 mg tablet) with all three tablets taken together orally twice daily for 5 days active Not Available Not Available No t Available Vitals Date Recorded Body height Body mass index (BMI) Body weight Provider Name and Address Organization Details Last Updated DateTime 10/12/2022 170.18 cm 23.5 kg/m2 83230.86 g Flor Pratt CNA [employer] 10/12/2022 13:39:18 Date Recorded Body height Body temperature Body mass index (BMI) Body weight Respiratory rate Oxygen saturation Oxygen saturation in Arterial blood by Pulse oximetry Heart rate Systolic blood pressure Diastolic blood pressure Provider Name and Address Organization Details Last Updated DateTime 3 170.18 cm 97.3 [degF] 22.9 kg/m2 02772.4 9 g 16 /min 97 % 97 % 70 /min 132 mm[Hg] 82 mm[Hg] SKYLER Richardson [employer] 3 11:26:33 Date Recorded Body mass index (BMI) Body height Body weight Provider Name and Address Organization Details Last Updated DateTime 02/28/2022 21.9 kg/m2 170.18 cm 84416.93 g Not Available [facility] 06/14/2022 00:45:49 Date Recorded Body mass index (BMI) Body height Oxygen saturation Oxygen saturation in Arterial blood by Pulse oximetry Heart rate Body temperature Body weight Systolic blood pressure Diastolic blood pressure Provider Name and Address Organization Details Last Updated DateTime 3 23.5 kg/m2 170.18 cm 98 % 98 % 76 /min 98.1 [degF] 03966.8 6 g 128 mm[Hg] 70 mm[Hg] Not Available [facility] 3 00:45:44 Date Recorded Body mass index (BMI) Body height Oxygen saturation Oxygen saturation in Arterial blood by Pulse oximetry Heart rate Body temperature Body weight Systolic blood pressure Diastolic blood pressure Systolic blood pressure Diastolic blood pressure Provider Name and Address Organization Details Last Updated DateTime 3 22.9 kg/m2 170.18 cm 99 % 99 % 78 /min 97.8 [degF] 44110.4 9 g 126 mm[Hg] 60 mm[Hg] 140 mm[Hg] 70 mm[Hg] Not Available [facility] 00:45:44 Social History Question Answer Notes LastModified by Organizat ion Details LastModified Time Tobacco Smoking Status Former Smoker quit 30 years ago Not Available [facility] 06/14/2022 00:42:02 What Is Your Level Of Alcohol Consumption? None MIGRATION.89385 06667 Information not available 06/14/2022 Are You Blind Or Do You Have Difficulty Seeing? No MIGRATION.69224 17201 Information not available 06/14/2022 What Is Your Level Of Caffeine Consumption? Moderate MIGRATION.66308 32636 Information not available 06/14/2022 How Much Tobacco Do You Chew? None MIGRATION.13393 65057 Information not available 06/14/2022 In The 14 Days Before Symptom Onset, Have You Had Close Contact With A Laboratory-confir med COVID-19 While That Case Was Ill? No MIGRATION.09797 86094 Information not available 06/14/2022 In The 14 Days Before Symptom Onset, Have You Had Close Contact With A Person Who Is Under Investigation For COVID-19 While That Person Was Ill? No MIGRATION.68170 73965 Information not available 06/14/2022 Are You Deaf Or Do You Have Serious Difficulty Hearing? No MIGRATION.24869 24111 Information not available 06/14/2022 What Type Of Diet Are You Following? REGULAR MIGRATION.61055 44991 Information not available 06/14/2022 Which Illicit Or Recreational Drugs Have You Used? None MIGRATION.47426 54553 Information not available 06/14/2022 Do You Or Have You Ever Used E-cigarettes Or Vape? Never Used Electronic Cigarettes MIGRATION.88008 67902 Information not available 06/14/2022 What Is Your Occupation? Retired MIGRATION.82723 30622 Information not available 06/14/2022 Have There Been Any Changes To Your Family Or Social Situation? No MIGRATION.99186 00525 Information not available 06/14/2022 Do You Use Insect Repellent Routinely? No MIGRATION.14149 17712 Information not available 06/14/2022 What Was The Date Of Your Most Recent Tobacco Screening? 11/22/2021 MIGRATION.61444 81575 Information not available 06/14/2022 What Is Your Relationship Status? MIGRATION.36167 98350 Information not available 06/14/2022 Do You Use Your Seat Belt Or Car Seat Routinely? Yes MIGRATION.77505 38301 Information not available 06/14/2022 Do You Have Smoke And Carbon Monoxide Detectors In Your Home? Yes MIGRATION.64805 69568 Information not available 06/14/2022 Do You Or Have You Ever Used Smokeless Tobacco? Never Used Smokeless Tobacco MIGRATION.38844 74687 Information not available 06/14/2022 Do You Use Any Illicit Or Recreational Drugs? No MIGRATION.67836 57906 Information not available 06/14/2022 Do You Use Sunscreen Routinely? Yes MIGRATION.87940 07361 Information not available 06/14/2022 Have You Recently Traveled Abroad? No MIGRATION.16440 18337 Information not available 06/14/2022 Do You Have Any Dietary Restrictions? No MIGRATION.71451 86190 Information not available 06/14/2022 Do You Or Have You Ever Used Any Other Forms Of Tobacco Or Nicotine? No MIGRATION.34077 02877 Information not available 06/14/2022 Sex: Unknown Functional Status Question Answer Note LastModified by Imaging3 ion Details LastModified Time Do you have difficulty walking or climbing stairs? No MIGRATION.2852440 026 Information not available 06/14/2022 Do you have transportation difficulties? No MIGRATION.3292893 026 Information not available 06/14/2022 Are you able to walk? YESWOREST MIGRATION.3661162 026 Information not available 06/14/2022 Do you have difficulty doing errands alone? No MIGRATION.7908421 026 Information not available 06/14/2022 Are you able to care for yourself? Yes MIGRATION.5657361 026 Information not available 06/14/2022 Do you have difficulty dressing or bathing? No MIGRATION.6784614 026 Information not available 06/14/2022 What is your exercise level? Moderate MIGRATION.7873988 026 Information not available 06/14/2022 Mental Status Question Answer Note LastModified by [employer] ion Details LastModified Time Do you have difficulty concentrating, remembering or making decisions? No MIGRATION.[id number] 6 Information not available 06/14/2022 Family History Relationship Description Onset Age of this Age Resolved Age Notes LastModified by Organization Details LastModified Time Sister Atrial fibrillation 81 [id number] Not available 06/14/2022 00:42:21 Father Family history of malignant neoplasm MIGRATION.[id number] Not available 06/14/2022 00:42:21 Medical History Condition Response HIGH CHOLESTEROL / HYPERLIPIDEMIA Y HYPOTHYROIDISM Y ARTHRITIS Y ASTHMA Y HYPERTENSION Y Gynecological History Statement/Question Response Abnormal Pap N Date of Last Mammogram 09/14/2013 Date of Last Colonoscopy 09/15/2003 Sexually Active? N Menses Monthly N Date of Last Pap 09/14/2016 Current Control Method Menopause Obstetrics History GPAL:G 2 P 0 0 0 2 Type Value Living 2 Total 2 Immunizations Vaccine Type Date Status Note Provider Nam e and Address Organization Details Recorded Time zoster, unspecified formulation 2 completed Not Available [facility] 06/14/2022 00:50:19 Influenza, high-dose, trivalent, PF 9 completed Not Available [facility] 06/14/2022 00:50:19 pneumococcal polysaccharide PPV23 9 completed Not Available [facility] 06/14/2022 00:50:19 Past Encounters Encounter ID Performer Location Encounter Start Date Encounter Closed Date Diagnosis/Indication Diagnosis SNOMED-CT Code Diagnosis ICD10 Code Diagnosis Note [id number] [facility] [address] [place] [address] 06/14/2020 00:00:00 06/14/2020 22:45:55 [id number] [facility] [address] [place] [address] 07/19/2020 00:00:00 07/19/2020 17:08:40 [id number] [facility] [address] [place] [address] 10/19/2020 00:00:00 10/31/2020 21:29:02 [id number] [facility] [address] [place] [address] 05/25/2021 00:00:00 06/13/2021 18:29:47 [id number] [facility] [address] [place] [address] 10/20/2021 00:00:00 10/20/2021 13:44:58 [id number] [facility] [address] [place] [address] 11/17/2021 00:00:00 11/17/2021 14:11:10 [id number] [facility] [address] [place] [address] 11/22/2021 00:00:00 12/13/2021 23:24:32 [id number] [facility] [address] [place] [address] 02/28/2022 00:00:00 02/28/2022 14:33:59 [id number] [facility] [address] [place] [address] 04/26/2022 00:00:00 05/15/2022 22:14:50 [id number] [facility] [address] [place] [address] 05/23/2022 00:00:00 06/13/2022 18:40:29 [id number] Moises Dukes MD [facility] [address] [place] [address] 10/12/2022 13:36:00 10/12/2022 15:17:39 Osteoarthritis of left knee joint 4811724387 57055 M17.12 Pain of le ft knee joint 7745221039 80590 M25.562 Lumbar spondylosis 23962 0009 M47.710 [id number] WILIAM Rodríguez [facility] [address] [place] [address] 12/12/2022 11:18:55 12/12/2022 11:56:13 Benign essential hypertension 4137553 I10 stable on hctz 12.5mg daily and verapamil ER 120mg daily Asthma 872192400 J45.90 9 stable on breo (PRN per her use) and antihistam ine Hyperlipidemia 22575482 E78.5 pt declines statin therapy due to muscle aches. mild LDL and triglyceri de elevation on labs. follow labs in apr. Hypothyroidism 94445542 E03.9 stable on supplement . repeat labs in apr. Long-term drug therapy 572405196 Z79.899 Health Concerns Section Related Observation LastModified by Organization Detai ls LastModified Time None Recorded Concern Status LastModified by Organization Details LastModified Time None Recorded Advance Directives Directive None Recorded Payers Encounter Date Sequence Insurance Name Policy Number Policy Castillo Covered Member ID Castillo Member ID Guarantor Name 10/12/2022 1 [facility] (MEDICARE REPLACEMENT/A DVANTAGE - PPO) [id number] Tamar Solis [id number] Tamar Solis 12/12/2022 1 [facility] (MEDICARE REPLACEMENT/A DVANTAGE - PPO) [id number] Tamar Solis [id number] Tamar Solis Notes Date Note Type Note Provider Name and Address Organization Details Recorded Time 022 text/ht ml KneeReported bypatient.Location:left Quality:aching; throbbing; dull Severity:moderate Duration:continuous since onset Timing:chronic Alleviating Factors:sitting; lying down; rest; elevation Aggravating Factors:bending/squatting; weight bearing Associated Symptoms:no weakness; no numbness; no tingling; no redness; no ecchymosis; no catching/locking; no popping/clicking; no buckling; no instability; no radiation down leg; no drainage; no fever; no chills; no weight loss; no change in bowel/bladder habits;swelling;warmth;grinding Not Available [facility] [employer] 02/28/2022 14:33:59 023 text/ht ml Generic HPI TemplateReported bypatient.Notes:pt is here for c/o r colunga painreports she shut her colunga in the car door 03/28/22localized bruising and swellingpainful to the touchHyperlipidemiaReported bypatient.Duration:chronic Control:usually well controlled Compliance:compliant;noncompliant with diet;does not exercise Complications:no coronary artery disease; no peripheral artery disease; no cardiovascular diseaseHypertensionReported bypatient.Onset/Timing:better Self Care:not under emotional stressHypothyroidismReported bypatient.Onset/Timing:better Context/Risk:history of hypothyroidism;female gender Exerciseno exercise Associated Symptoms:no cold intolerance; no heat intolerance; no weight loss; no weight gain; no double vision; no dry eyes; no hoarseness; no difficulty swallowing; no neck masses; no deepening of the voice; no fast heart rate; no increased blood pressure; no palpitations; no chest pain; no chest tightess or pressure; no constipation; no diarrhea; no vomiting; no decreased appetite; no loose stools; no irregular menstrual periods; no excessive sweating; no joint pain; no numbness; no tingling of the hands or feet; no tremor; no nervousness; no anxiety; no depression; no fatigue; no sleep difficulties; no hair changes;dry skin;skin changes Not Available [facility] [employer] 05/15/2022 22:14:50 023 text/ht ml Asthma F/UReported bypatient.Quality:well-controlled with antiasthmatics Severity:symptoms cause awakening from sleep Status:improving Modifying Factors:avoidance of triggers; compliance with asthma regimen; short-acting beta agonist Associated Symptoms:shortness of breath Antiasthmatics:compliant with maintenance asthma medicationGeneric HPI TemplateReported bypatient.Notes:localized feet and leg swellingHyperlipidemiaReported bypatient.Duration:chronic Control:usually well controlled Compliance:compliant;noncompliant with diet;does not exercise Complications:no coronary artery disease; no peripheral artery disease; no cardiovascular diseaseHypertensionReported bypatient.Onset/Timing:better Self Care:not under emotional stressHypothyroidismReported bypatient.Onset/Timing:better Context/Risk:history of hypothyroidism;female gender Exerciseno exercise Associated Symptoms:no cold intolerance; no heat intolerance; no weight loss; no weight gain; no double vision; no dry eyes; no hoarseness; no difficulty swallowing; no neck masses; no deepening of the voice; no fast heart rate; no increased blood pressure; no palpitations; no chest pain; no chest tightess or pressure; no constipation; no diarrhea; no vomiting; no decreased appetite; no loose stools; no irregular menstrual periods; no excessive sweating; no joint pain; no numbness; no tingling of the hands or feet; no tremor; no nervousness; no anxiety; no depression; no fatigue; no sleep difficulties; no hair changes;dry skin;skin changes Not Available [employer] 06/13/2022 18:40:29 023 text/ht ml Patient presents knee pain left greater than right. He has had pain for some time now it seems to worse time pain is localized primarily to the left knee is worse with activity. Moises Dukes MD [address] [facility], [facility] [address], [place], [address], [employer] 10/12/2022 14:06:27 023 text/ht ml AsthmaReported bypatient.Notes:stable on antihistamine and breo samplesHyperlipidemiaReported bypatient.Duration:chronic Control:usually well controlled Compliance:compliant; compliant with diet;does not exercise Complications:no coronary artery disease; no peripheral artery disease; no cardiovascular disease Risk Factors:hypertensionHypertensionR eported bypatient.Duration:has noted for years Onset/Timing:better Alleviating Factors:medication Associated Symptoms:no shortness of breath; no fatigue; no palpitations; no decline in exercise capacity; no snoringHypothyroidismReported bypatient.Quality:not changing Duration:constant Onset/Timing:still present Context/Risk:normal thyroid levels; no history of head or neck radiation during childhood; no history of thyroid disease; no history of hyperthyroidism; no excess iron exposure;history of hypothyroidism;female gender Modifying Factors:medication Exerciseno exercise Associated Symptoms:no cold intolerance; no heat intolerance; no weight loss; no weight gain; no double vision; no dry eyes; no hoarseness; no difficulty swallowing; no neck masses; no deepening of the voice; no fast heart rate; no increased blood pressure; no palpitations; no chest pain; no chest tightess or pressure; no constipation; no diarrhea; no vomiting; no decreased appetite; no loose stools; no irregular menstrual periods; no excessive sweating; no joint pain; no numbness; no tingling of the hands or feet; no dry skin; no tremor; no nervousness; no anxiety; no depression; no fatigue; no sleep difficulties; no skin changes; no hair changes WILIAM Rodríguez [address] [facility], [facility] [address], [place], [address], [facility] [employer] [facility] 12/12/2022 13:06:45 OBGyn Episode No OBEpisode recorded.
--- OUTSIDE RECORDS SUMMARY | 2024-07-30 16:31 | XMS_ITS | Continuity of Care Document ---
Author Organization Merged with [facility] Address [address] [place] [address] [address] [facility] [address] [place] [address] Phone Care Team Providers Care Angiographer Name Role Phone Brabara Ballesteros Unavailable Unavailable Procedures Procedure Date Eye Exam Established Pt Advance Directives Directive Yes / No Effective Date File Name No Information Encounters Encounter Description Practice Location Reason(s) For Visit Diagnoses Date Provider Providers Copied on Encounter [facility] [place], [id number] [place] [address] [address], [place], [place], [id number], [place] tel:[phone] [facility] No Information [phone] Lesli Jimenez. [address] , [address], [place], [address], [place]. tel:[phone] Family History Family Member Type Diagnosis Age At Onset No Information Payers Payer name Insurance type Covered alliance party ID Authoriza tion(s) [place] [id number] Social History Type Description Quantity Date Captured [...]
--- OUTSIDE RECORDS SUMMARY | 2024-07-30 16:31 | XMS_ITS | Data Portability ---
Author Organization [facility] Marcos [facility] Address [address] [place] [address] Care Team Providers Care Water Filterer Name Role Phone VIBHA CHEN Primary Care Provider Unavailab le Assessment No assessment recorded. Plan of Treatment Reminders Order Date Submit Date Provider Last Modified By Organization Details Last Modified Time Details Appointments ANY 15 2024 01:00P M WILIAM Rodríguez Not available Not available Not available Lab CBC w/ auto diff 2023 024 [email or web address] [facility], [address], [place], [address], 02/14/2024 10:33:10 BMP, serum or plasma 2023 024 [email or web address] [facility], [address], [place], [address], 02/14/2024 10:33:10 hepatic function panel, serum 2023 024 [email or web address] [facility], [address], [place], [address], 02/14/2024 10:33:10 TSH + free T4, serum 2023 024 [email or web address] [facility], [address], [place], [address], 02/14/2024 10:33:09 lipid panel, serum 2023 024 [email or web address] [facility], [address], [place], [address], 02/14/2024 10:33:09 Referral None recorded. Procedures None recorded. Surgeries None recorded. Imaging XR, chest, 2 view 2023 [facility], [address], [place], [address], 01/15/2024 17:28:43 Medication Orders prednison e 50 mg tablet 2023 [facility] #[id number], [address] [facility], [place], [place], [id number], 02/14/2024 16:02:29 amoxicill in 875 mg-potass ium clavulana te 125 mg tablet 2023 [email or web address] [facility] #12966, [address] [place] [address], [id number], 02/14/2024 16:02:03 omeprazol e 40 mg capsule,d elayed release 2023 024 [email or web address] #[id number], [address] [place] [address], [id number], 01/15/2024 13:55:40 Patient TargetsNo targets recorded. Patient InstructionsNo instructions recorded. Reason for Referral None Reported. Results Created Date Observation Date Name Description Value Unit Range Abnormal Flag Note LastModifiedBy Organization Detail LastModifiedTime 07/23/19 24 07/24/2023 CBC W Auto Diffe renti al panel - Blood leukocytes [#/volume] in blood by automated count white blood cell count Not Available Not Available 07/01/2024 17:43:16 07/23/19 24 07/24/2023 CBC W Auto Diffe renti al panel - Blood erythrocytes [#/volume] in blood by automated count red blood cell count Not Available Not Available 07/01/2024 17:43:16 07/23/19 24 07/24/2023 CBC W Auto Diffe renti al panel - Blood hemoglobin [mass/volume ] in blood hemog lobin Not Available Not Available 07/01/2024 17:43:16 07/23/19 24 07/24/2023 CBC W Auto Diffe renti al panel - Blood hematocrit [volume fraction] of blood by automated count hemat ocrit Not Available Not Available 07/01/2024 17:43:16 07/23/19 24 07/24/2023 CBC W Auto Diffe renti al panel - Blood MCV [entitic volume] by automated count MCV Not Available Not Available 06/14 17:43:16 07/23/19 24 07/24/2023 CBC W Auto Diffe renti al panel - Blood MCH [entitic mass] by automated count MCH Not Available Not Available 06/14 17:43:16 07/23/19 24 07/24/2023 CBC W Auto Diffe renti al panel - Blood MCHC [mass/volume ] by automated count MCHC Not Available Not Available 06/14 17:43:16 07/23/19 24 07/24/2023 CBC W Auto Diffe renti al panel - Blood erythrocyte distribution width [ratio] by automated count RDW Not Available Not Available 06/14 17:43:16 07/23/19 24 07/24/2023 CBC W Auto Diffe renti al panel - Blood platelets [#/volume] in blood by automated count plate let count Not Available Not Available 07/01/2024 17:43:16 07/23/19 24 07/24/2023 CBC W Auto Diffe renti al panel - Blood platelet mean volume [entitic volume] in blood by kelly MPV Not Available Not Available 0 07/01/2024 17:43:16 07/23/19 24 07/24/2023 CBC W Auto Diffe renti al panel - Blood neutrophils [#/volume] in blood by automated count absol kenaitze neutr ophil s Not Available Not Available 07/01/2024 17:43:16 07/23/19 24 07/24/2023 CBC W Auto Diffe renti al panel - Blood lymphocytes [#/volume] in blood by automated count absol kenaitze lymph ocyte s Not Available Not Available 07/01/2024 17:43:16 07/23/19 24 07/24/2023 CBC W Auto Diffe renti al panel - Blood monocytes [#/volume] in blood by automated count absol kenaitze monoc ytes Not Available Not Available 07/01/2024 17:43:16 07/23/19 24 07/24/2023 CBC W Auto Diffe renti al panel - Blood eosinophils [#/volume] in blood by automated count absol kenaitze eosin ophil s Not Available Not Available 07/01/2024 17:43:16 07/23/19 24 07/24/2023 CBC W Auto Diffe renti al panel - Blood basophils [#/volume] in blood by automated count absol kenaitze basop hils Not Available Not Available 07/01/2024 17:43:16 07/23/19 24 07/24/2023 CBC W Auto Diffe renti al panel - Blood neutrophils/ 100 leukocytes in blood by automated count neutr ophil s Not Available Not Available 07/01/2024 17:43:16 07/23/19 24 07/24/2023 CBC W Auto Diffe renti al panel - Blood lymphocytes/ 100 leukocytes in blood by automated count lymph ocyte s Not Available Not Available 07/01/2024 17:43:16 07/23/19 24 07/24/2023 CBC W Auto Diffe renti al panel - Blood monocytes/10 0 leukocytes in blood by automated count monoc ytes Not Available Not Available 07/01/2024 17:43:16 07/23/19 24 07/24/2023 CBC W Auto Diffe renti al panel - Blood eosinophils/ 100 leukocytes in blood by automated count eosin ophil s Not Available Not Available 07/01/2024 17:43:16 07/23/19 24 07/24/2023 CBC W Auto Diffe renti al panel - Blood basophils/10 0 leukocytes in blood by automated count basop hils Not Available Not Available 07/01/2024 17:43:16 07/23/19 24 07/24/2023 Hepat ic funct ion 2000 panel - Serum or Plasm a protein [mass/volume ] in serum or plasma low prote in, total Not Available Not Available 07/01/2024 17:43:16 07/23/19 24 07/24/2023 Hepat ic funct ion 2000 panel - Serum or Plasm a albumin [mass/volume ] in serum or plasma album in Not Available Not Available 07/01/2024 17:43:16 07/23/19 24 07/24/2023 Hepat ic funct ion 1999 panel - Serum or Plasm a globulin [mass/volume ] in serum by calculation low globu gena Not Available Not Available 07/01/2024 17:43:16 07/23/19 24 07/24/2023 Hepat ic funct ion 1999 panel - Serum or Plasm a albumin/glob ulin [mass ratio] in serum or plasma album in/gl obuli n ratio Not Available Not Available 07/01/2024 17:43:16 07/23/19 24 07/24/2023 Hepat ic funct ion 1999 panel - Serum or Plasm a bilirubin.to allie [mass/volume ] in serum or plasma bilir ubin, total Not Available Not Available 07/01/2024 17:43:16 07/23/19 24 07/24/2023 Hepat ic funct ion 2000 panel - Serum or Plasm a bilirubin.di rect [mass/volume ] in serum or plasma bilir ubin, direc t Not Available Not Available 07/01/2024 17:43:16 07/23/19 24 07/24/2023 Hepat ic funct ion 1999 panel - Serum or Plasm a bilirubin.in direct [mass/volume ] in serum or plasma bilir ubin, indir ect Not Available Not Available 07/01/2024 17:43:16 07/23/19 24 07/24/2023 Hepat ic funct ion 1999 panel - Serum or Plasm a alkaline phosphatase [enzymatic activity/vol ume] in serum or plasma alkal ine phosp hatas e Not Available Not Available 07/01/2024 17:43:16 07/23/19 24 07/24/2023 Hepat ic funct ion 1999 panel - Serum or Plasm a aspartate aminotransfe rase [enzymatic activity/vol ume] in serum or plasma AST Not Available Not Available 06/14 17:43:16 07/23/19 24 07/24/2023 Hepat ic funct ion 2000 panel - Serum or Plasm a alanine aminotransfe rase [enzymatic activity/vol ume] in serum or plasma ALT Not Available Not Available 06/14 17:43:16 07/23/19 24 07/24/2023 [facility] 1999 panel - Serum or Plasm a glucose [mass/volume ] in serum or plasma gluco se Not Available Not Available 07/01/2024 17:43:15 07/23/19 24 07/24/2023 [facility] 1999 panel - Serum or Plasm a urea nitrogen [mass/volume ] in serum or plasma urea nitro gen (BUN) Not Available Not Available 07/01/2024 17:43:15 07/23/19 24 07/24/2023 [facility] 1999 panel - Serum or Plasm a creatinine [mass/volume ] in serum or plasma creat inine Not Available Not Available 07/01/2024 17:43:15 07/23/19 24 07/24/2023 [facility] 1999 panel - Serum or Plasm a glomerular filtration rate/1.73 sq M.predicted [volume rate/area] in serum, plasma or blood by creatinine-b ased formula (CKD-epi 2020) eGFR Not Available Not Available 06/14 17:43:15 07/23/19 24 07/24/2023 [facility] 1999 panel - Serum or Plasm a urea nitrogen/cre atinine [mass ratio] in serum or plasma SEE NOTE: BUN/c reati nine ratio Not Available Not Available 07/01/2024 17:43:15 07/23/19 24 07/24/2023 [facility] 1999 panel - Serum or Plasm a sodium [moles/volum e] in serum or plasma sodiu m Not Available Not Available 07/01/2024 17:43:15 07/23/19 24 07/24/2023 [facility] 1999 panel - Serum or Plasm a potassium [moles/volum e] in serum or plasma potas sium Not Available Not Available 07/01/2024 17:43:15 07/23/19 24 07/24/2023 [facility] 1999 panel - Serum or Plasm a chloride [moles/volum e] in serum or plasma chlor lexus Not Available Not Available 07/01/2024 17:43:15 07/23/19 24 07/24/2023 [facility] 1999 panel - Serum or Plasm a carbon dioxide, total [moles/volum e] in serum or plasma carbo n dioxi de Not Available Not Available 07/01/2024 17:43:15 07/23/19 24 07/24/2023 [facility] metab [facility]lic 2000 panel - Serum or Plasm a calcium [mass/volume ] in serum or plasma low calci um Not Available Not Available 07/01/2024 17:43:15 07/23/19 24 07/24/2023 Lipid 1995 panel - Serum or Plasm a cholesterol [mass/volume ] in serum or plasma high tarsha stero l, total Not Available Not Available 07/01/2024 17:43:15 07/23/19 24 07/24/2023 Lipid 1995 panel - Serum or Plasm a cholesterol in HDL [mass/volume ] in serum or plasma HDL tarsha stero l Not Available Not Available 07/01/2024 17:43:15 07/23/19 24 07/24/2023 Lipid 1996 panel - Serum or Plasm a triglyceride [mass/volume ] in serum or plasma trigl yceri lisa Not Available Not Available 07/01/2024 17:43:15 07/23/19 24 07/24/2023 Lipid 1996 panel - Serum or Plasm a cholesterol in LDL [mass/volume ] in serum or plasma by calculation high LDL-c holes terol Not Available Not Available 07/01/2024 17:43:15 07/23/19 24 07/24/2023 Lipid 1996 panel - Serum or Plasm a cholesterol. total/choles terol in HDL [mass ratio] in serum or plasma chol/ HDLC ratio Not Available Not Available 07/01/2024 17:43:15 07/23/19 24 07/24/2023 Lipid 1996 panel - Serum or Plasm a cholesterol in LDL/choleste rol in HDL [mass ratio] in serum or plasma LDL/H DL ratio Not Available Not Available 07/01/2024 17:43:15 07/23/19 24 07/24/2023 Lipid 1996 panel - Serum or Plasm a cholesterol non HDL [mass/volume ] in serum or plasma high non HDL tarsha stero l Not Available Not Available 07/01/2024 17:43:15 07/23/19 24 07/24/2023 Free T4 and TSH panel - Serum or Plasm a thyrotropin [units/volum e] in serum or plasma TSH Not Available Not Available 17:43:15 07/23/19 24 07/24/2023 Free T4 and TSH panel - Serum or Plasm a thyroxine (T4) free [mass/volume ] in serum or plasma T4, free Not Available Not Available 07/01/2024 17:43:15 01/15/20 24 01/15/2024 XR, chest , 2 view No observ ation record ed. [facility] [address], [place], [address], 01/15/2024 17:46:07 07/31/19 25 07/30/2024 US, elham x, carot id arter y No observ ation record ed. [facility] [address], [place], [address], 07/30/2024 17:20:52 Result Notes None recorded. Problems Name Problem SNOMED Code Status Onset Date Resolution Date Notes Provider Name and Address Organization Details Recorded Time Long-term drug therapy Active 2023 WILIAM Rodríguez Attn: Najma elias,[address] [place], [address], [facility] 4 14:16:47 Hyperlipidemia 93833363 Active 2023 WILIAM Rodríguez Attn: Najma elias,[address] [place], [address], [facility] - [facility] 4 14:16:49 Asthma 858554600 Active 2023 WILIAM Rodríguez Attn: Najma elias,[address] [place], [address], [place] - [facility] 4 14:16:50 Acid reflux 870449389 Active 2023 WILIAM Rodríguez Attn: Najma elias,[address] [place], [address], [facility] - [facility] 4 14:16:52 Hypothyroidism 24838645 Active 2023 WILIAM Rodríguez Attn: Najma elias,[address] [facility] [address], [place], [address], [place] [facility] 4 14:16:54 Benign essential hypertension 3980352 Active 2023 WILIAM Rodríguez Attn: Najma elias,[address], [place], [address], [facility] - [facility] 4 14:16:55 Body mass index 20-24 - normal 853461858 Active 2024 Elieser Forbes MA null, [place] [facility] 5 14:00:53 Problem Notes None recorded. Procedures Surgical History None recorded. Imaging Results Imaging Date Name Status LastModified by Organiz ation Details LastModified Time 01/15/2024 XR, chest, 2 view completed [facility] [address], [place], [address], 01/15/2024 17:46:07 07/30/2024 , duplex, carotid artery active [facility] [address], [place], [address], 07/30/2024 17:20:52 Procedure Notes None recorded. Medical Equipment None Reported. Allergies Allergen ID Allergen Name Allergen Category Reaction Reaction Severity Criticality Documentation Date Start Date Code Code System Note Provider Name and Address Organization Details Recorded Time 242054 azithromy chio medicatio n Not available Not available Not available 01/15/2024 28150 RxNorm Not Available Not Available Not Available Medications Name Sig Start Date Stop Date Status Note LastModified by Organization Details LastModified Time verapamil ER (SR) 120 mg tablet,ex tended release TAKE 2 TABLETS BY MOUTH EVERY DAY active Not Available Not Available No t Available amoxicill in 500 mg capsule TAKE 1 CAPSULE BY MOUTH EVERY 8 HOURS FOR 7 DAYS 07/15 completed Not Available Not Available Not Available cetirizin e 10 mg tablet TAKE 1 TABLET BY MOUTH DAILY NEEDED active allergy Not Available Not Available No t Available prednison e 20 mg tablet TAKE 2 TABLETS BY MOUTH EVERY DAY FOR 5 DAYS 07/15 completed Not Available Not Available Not Available clobetaso l 0.05 % topical cream APPLY A THIN LAYER TO THE AFFECTED AREA TOPICALL Y TWICE DAILY active Not Available Not Available No t Available omeprazol e 40 mg capsule,d elayed release TAKE 1 CAPSULE BY MOUTH EVERY DAY active Not Available Not Available No t Available amoxicill in 500 mg tablet TAKE 1 TABLET BY MOUTH FOUR TIMES DAILY UNTIL GONE 01/14 completed Not Available Not Available Not Available levothyro xine 75 mcg tablet TAKE 1 TABLET BY MOUTH EVERY MORNING active Not Available Not Available No t Available prednison e 50 mg tablet TAKE 1 TABLET BY MOUTH EVERY DAY FOR 5 DAYS 02/13 completed Not Available Not Available Not Available diclofena c sodium 75 mg tablet,de layed release TAKE 1 TABLET BY MOUTH TWICE DAILY 07/19 completed Not Available Not Available Not Available levofloxa chio 500 mg tablet TAKE 1 TABLET BY MOUTH EVERY 24 HOURS 02/13 completed Not Available Not Available Not Available methylpre dnisolone 4 mg tablets in a dose pack FOLLOW PACKAGE DIRECTIO NS STARTING 02/07/2307/19 completed Not Available Not Available Not Available amoxicill in 875 mg-potass ium clavulana te 125 mg tablet TAKE 1 TABLET BY MOUTH EVERY 12 HOURS 02/13 completed Not Available Not Available Not Available verapamil ER 120 mg 24 hr capsule,e xtended release TAKE 2 TABLET BY MOUTH EVERY DAY 07/15 completed Not Available Not Available Not Available lactulose 10 gram/15 mL oral solution TAKE 15 ML BY MOUTH EVERY DAY FOR 3 DAYS NEEDED 08/01 completed Not Available Not Available Not Available Breo Ellipta 100 mcg-25 mcg/dose powder for inhalatio n Inhale 1 puff every day by inhalati on route. active Not Available Not Available No t Available Vitals Date Recorded Body height Body mass index (BMI) Body weight Oxygen saturation Oxygen saturation in Arterial blood by Pulse oximetry Heart rate Systolic blood pressure Diastolic blood pressure Provider Name and Address Organization Details Last Updated DateTime 4 170.18 cm 23.3 kg/m2 83163.4 1 g 99 % 99 % 96 /min 132 mm[Hg] 82 mm[Hg] Elieser Forbes [place] [facility] 4 12:34:35 Date Recorded Body height Respiratory rate Body mass index (BMI) Body weight Oxygen saturation Oxygen saturation in Arterial blood by Pulse oximetry Heart rate Systolic blood pressure Diastolic blood pressure Provider Name and Address Organization Details Last Updated DateTime 4 170.18 cm 18 /min 23.2 kg/m2 31155.6 7 g 98 % 98 % 65 /min 142 mm[Hg] 80 mm[Hg] Elieser Forbes MA [facility] 4 13:59:28 Date Recorded Systolic blood pressure Diastolic blood pressure Provider Name and Address Organization Details Last Updated DateTime 01/15/2024 128 mm[Hg] 70 mm[Hg] WILIAM Rodríguez Attn: Accounting,[address] [facility], [place], [address], [facility] 01/15/2024 14:13:51 Date Recorded Body height Body mass index (BMI) Body weight Respiratory rate Oxygen saturation Oxygen saturation in Arterial blood by Pulse oximetry Heart rate Systolic blood pressure Diastolic blood pressure Provider Name and Address Organization Details Last Updated DateTime 5 170.18 cm 22.4 kg/m2 02103.7 1 g 18 /min 100 % 100 % 71 /min 136 mm[Hg] 82 mm[Hg] Elieser Forbes MA [facility] 5 14:02:08 Social History Question Answer Notes LastModified by Organizat ion Details LastModified Time Tobacco Smoking Status Former Smoker Elieser Forbes MA null, [facility] 08/02/2023 12:31:17 Do You Have An Advance Directive? Yes Information not available 08/02/2023 What Is Your Level Of Alcohol Consumption? None Information not available 08/02/2023 Are You Blind Or Do You Have Difficulty Seeing? No Glasses Information not available 08/02/2023 What Is Your Level Of Caffeine Consumption? Moderate Information not available 08/02/2023 In The 14 Days Before Symptom Onset, Have You Had Close Contact With A Laboratory-confir med COVID-19 While That Case Was Ill? No Information not available 08/02/2023 In The 14 Days Before Symptom Onset, Have You Had Close Contact With A Person Who Is Under Investigation For COVID-19 While That Person Was Ill? No Information not available 08/02/2023 Have You Been To An Area Known To Be High Risk For COVID-19? No Information not available 08/02/2023 Are You Currently Employed? No Information not available 07/15/2024 Are You Deaf Or Do You Have Serious Difficulty Hearing? No Information not available 08/02/2023 What Type Of Diet Are You Following? REGULAR Information not available 08/02/2023 Are There Any Guns Present In Your Home? No Information not available 08/02/2023 What Was The Date Of Your Most Recent Tobacco Screening? 07/15/2024 Information not available 07/15/2024 What Is Your Current Pack Years? 10-19packyea rs Information not available 08/02/2023 Do You Use Your Seat Belt Or Car Seat Routinely? Yes Information not available 08/02/2023 Do You Have Smoke And Carbon Monoxide Detectors In Your Home? Yes Information not available 08/02/2023 How Much Tobacco Do You Smoke? No Information not available 08/02/2023 Do You Use Any Illicit Or Recreational Drugs? No Information not available 08/02/2023 Do You Use Sunscreen Routinely? No Information not available 08/02/2023 Has Tobacco Cessation Counseling Been Provided? Yes Information not available 08/02/2023 On What Date Was Tobacco Cessation Counseling Provided? 07/15/2024 Information not available 07/15/2024 Do You Or Have You Ever Used Any Other Forms Of Tobacco Or Nicotine? No Information not available 08/02/2023 Sex: Female Functional Status Question Answer Note LastModified by Organizat ion Details LastModified Time Are you able to care for yourself? Yes Information not available 08/02/2023 What is your exercise level? Occasional limited Information not available 08/02/2023 Mental Status None recorded. Family History Relationship Description Onset Age of this Age Resolved Age Notes LastModified by Organization Details LastModified Time Mother Disorder of thyroid gland [email or web address] Not available 2023 13:17:22 Mother Osteoporosis [email or web address] Not avai lable 08/02/2023 13:17:31 Sister Disorder of thyroid gland tcarterma Not available 2023 13:17:22 Medical History Condition Response Coronary Artery Disease N Other N Atrial Fibrillation N High Blood Pressure Y Depression N COPD N Blood Clots N Anxiety Disorder N Muscle, Joint, or Bone Problems N Acid Reflux (GERD) N Cancer N Stroke N Headaches N Kidney or Bladder Problems N Skin Problems N Asthma Y Allergies N Hepatitis N High Cholesterol Y Liver Disease N Thyroid Problems Y GI Problems N Anemia N Heart Attack (IN) N Diabetes N Seizures/Epilepsy N Heart Failure N Osteoporosis N Gynecological History Statement/Question Response Menses Monthly N Current Control Method Other Obstetrics History GPAL:G 0 P 0 0 0 0 Past Encounters Encounter ID Performer Location Encounter Start Date Encounter Closed Date Diagnosis/Indication Diagnosis SNOMED-CT Code Diagnosis ICD10 Code Diagnosis Note [id number] WILIAM Rodríguez [facility] [employer] [address] [place] [address] 08/02/2023 12:24:08 08/02/2023 13:20:01 Benign essential hypertension 6692998 I10 stable on verapamil ER 120mg daily. Hypothyroidism 92671972 E03.9 stable on levothyrox ine 75mcg daily Asthma 473827287 J45.90 9 stable on breo and zyrtec Long-term drug therapy 694171341 Z79.899 labs to be faxed and then will call patient with results Acute constipation 9006 K59.00 improved/r esolved. she does not want any colon testing. Acid reflux 524726767 K2 1.9 stable refill on PPI therapy. [id number] WILIAM Rodríguez [facility] [employer] [address] [place] [address] 01/15/2024 13:48:28 01/15/2024 14:30:38 Benign essential hypertension 2408073 I10 stable on verapamil ER 120mg daily. Hypothyroidism 49245558 E03.9 stable on levothyrox ine 75mcg daily, due for updated thyroid function panel Acid reflux 834419755 K2 1.9 stable refill on PPI therapy. Asthma 105651123 J45.90 9 stable on breo and zyrtec Acute constipation 9006 K59.00 still improved/r esolved. she does not want any colon testing. Long-term drug therapy 273254564 Z79.899 Routine CBC, BMP and LFT ear due Hyperlipidemia 69264631 E78.5 Patient is not on any medication therapy per her decision. We will order a fasting lipid panel for updated evaluation Cough 78420243 R05.9 Refer for chest x-ray to rule out any underlying pneumonia and start prednisone 50 mg daily for 5 days Acute bronchitis 7163931 2 J20.9 Start Augmentin course as directed for 7 days [id number] WILIAM Rodríguez [facility] [place] [address] [place] [address] 07/15/2024 13:50:30 07/15/2024 16:07:05 Benign essential hypertension 2355540 I10 stable on verapamil ER 120mg daily. Hypothyroidism 12045346 E03.9 stable on levothyrox ine 75mcg daily Acid reflux 816563018 K2 1.9 stable on PPI therapy. Asthma 496472681 J45.90 9 stable on breo and zyrtec Long-term drug therapy 163819551 Z79.899 Hyperlipidemia 87437379 E78.5 Patient is not on any medication therapy per her decision. We will order a fasting lipid panel for updated evaluation Body mass index 20-24 - normal 763336885 Z68.22 BMI 22.4 Carotid bruit present 27 1736157 R09.89 Health Concerns Section Related Observation LastModified by Organization Detai ls LastModified Time None Recorded Concern Status LastModified by Organization Details LastModified Time None Recorded Advance Directives Directive Y: Payers Encounter Date Sequence Insurance Name Policy Number Policy Castillo Covered Member ID Castillo Member ID Guarantor Name 08/02/2023 1 [facility] (MEDICARE REPLACEMENT/A DVANTAGE - PPO) [id number] Tamar Solis [id number] Tamar Solis 01/15/2024 1 [facility] (MEDICARE REPLACEMENT/A DVANTAGE - PPO) [id number] Tamar Solis [phone] Tamar Solis Notes Date Note Type Note Provider Name and Address Organization Details Recorded Time 08/02/2023 text/html Asthma F/UReport ed bypatient.Notes:stable at this time on breo ellipta 100mcg.HypertensionRep orted bypatient.Notes:has been stable on verapamil ER 120mg daily.Reflux/GERDRepor yuniel bypatient.Notes:stable on omeprazole 40mg daily.ThyroidReported bypatient.Notes:stable on levothyroxine 75mcg daily. labs are completed but not faxed to us at time of appt. WILIAM Rodríguez Attn: Accounting,[address], [place], [address], [place] - [facility] 08/14/2023 21:03:48 01/15/2024 text/html Asthma F/UReport ed bypatient.Notes:stable at this time on breo ellipta 100mcg.HypertensionRep orted bypatient.Notes:has been stable on verapamil ER 120mg daily.Reflux/GERDRepor yuniel bypatient.Notes:stable on omeprazole 40mg daily.ThyroidReported bypatient.Notes:stable on levothyroxine 75mcg daily. labs are completed but not faxed to us at time of appt.Upper Respiratory SymptomsReported bypatient.Location:[facility] Quality:productive cough;colored phlegm;congested;hacki ng cough Severity:moderate Duration:symptoms lasting over 2 weeks Context:no sick contacts; no foreign travel; non-smoker Modifying Factors:OTC medication Associated Symptoms:yellow sputum;wheezing;fatigu e WILIAM Rodríguez Attn: Accounting,[address], [place], [address], [facility] - [facility] 02/04/2024 09:07:27 OBGyn Episode No OBEpisode recorded.
== END 2024-07-30 15:15 | disposition home or self-care (01) ==
PROVIDERS: PCP Physician Assistant; Visit Provider Physician Assistant
DX: R09.89 Other specified symptoms and signs involving the circulatory and respiratory systems (principal); I65.23 Occlusion and stenosis of bilateral carotid arteries
CPT/HCPCS: 93880

== ENCOUNTER 2024-08-09 15:03 | Emergency (ER) | payer MEDICARE, SELFPAY ==
--- NOTE | 2024-08-09 15:04 | ED_ITS ---
HPI - Wound/Laceration General Chief Complaint: Wound/Laceration Stated Complaint: leg wound Time Seen by Provider: 08/09/24 15:03 Source: patient Mode of arrival: ambulatory Limitations: no limitations History of Present Illness HPI narrative: Tamar is an 84-year-old female patient presenting to the clinic today with complaints of a left leg wound. She reports 8 days ago she was pushing her recliner down using her shins and obtained a skin tear to the left lower anterior leg. States she initially cleansed it with peroxide. After few days she knows to become red, painful, and swollen. Contacted her PCP 2 days ago and sent in a picture of the wound and they placed her on cephalexin and mupirocin cream. States she has been taking that for the past 2 days and she has not seen much resolution of the infection. States it is painful to ambulate and she has lower leg swelling. She denies any fevers, chills, body aches. Denies any chest pain or shortness of breath. Denies any history of congestive heart failure or blood clotting disorder. Does not take any hormones. Related Data Home Medications ?Medication ?Instructions ?Recorded ?Confirmed ?Last Taken ?Type cephalexin 500 mg capsule mg 08/09/24 Unknown History fluticasone furoate 100 1 inh inhalation DAILY 08/09/24 08/09/24 Unknown History mcg-vilanterol 25 mcg/dose inhalation powder (Breo Ellipta) levothyroxine 75 mcg tablet mcg 08/09/24 Unknown History mupirocin 2 % topical ointment topical 08/09/24 Unknown History verapamil 120 mg tablet,extended mg PO 08/09/24 Unknown History release Allergies Allergy/AdvReac Type Severity Reaction Status Date / Time azithromycin Allergy Mild Rash Verified 08/09/24 15:11 Review of Systems Review of Systems: Pertinent positives per HPI. Patient denies any fever, chills, rash, headache, visual changes, dizziness, cough, runny nose, sore throat, shortness of breath, chest pain, palpitations, nausea, vomiting, diarrhea, constipation, abdominal pain, or any urinary issues. REPLACED BY [facility] Social History Social History Smoking status: Never smoker Alcohol intake: never Comments At the time of my signature, I reviewed and agree with the nursing past medical, surgical, social, and family history. There is no relevant family history pertinent to the patient complaint. Exam Narrative: General: Well-developed, well nourished, in no apparent distress Head: Normocephalic, atraumatic. Cardio: Regular rate and rhythm, s1 and s2 normal, no murmur appreciated. Resp: Clear to auscultation bilaterally, no rhonchi, rales, wheezing or rubs. Musculoskeletal: No deformity, non-tender to palpation, grossly normal range of motion, muscle strength strong and equal, peripheral pulse strong, 1+ pitting edema, negative Homans sign, no cyanosis, normal gait and station Integumentary: [place], warm, and dry, 7.5 cm skin tear to the left anterior lower leg with localized redness, erythema, and edema. Very scant amount of yellow discharge on Band-Aid. Course Course Emergency Course: Portions of this record may have been created with voice recognition software. Level of Care: Express Care Visit Vital Signs Vital signs: Vital Signs Temperature 36.4 C 08/09/24 15:10 Pulse Rate 74 08/09/24 15:10 Respiratory Rate 18 08/09/24 15:10 Blood Pressure 141/52 H 08/09/24 15:10 Pulse Oximetry 100 08/09/24 15:10 Oxygen Delivery Room Air 08/09/24 15:10 Temperature 36.4 C 08/09/24 15:10 Pulse Rate 74 08/09/24 15:10 Respiratory Rate 18 08/09/24 15:10 Blood Pressure 141/52 H 08/09/24 15:10 Pulse Oximetry 100 08/09/24 15:10 Oxygen Delivery Room Air 08/09/24 15:10 Vital signs reviewed MDM - Wound/Laceration MDM Narrative Medical decision making narrative: At the time of visit patient is resting comfortably on the exam table. Patient appears to be nontoxic. Plan: I suspect patient has an infected wound/cellulitis to the left leg. Prescription for regular strength Bactrim was sent to the pharmacy and will have patient continue mupirocin cream and cephalexin. No recent labs were available for review to check kidney function. Supportive measures were discussed with the patient and they voiced understanding discharge instructions and agrees to treatment plan. Return precautions reviewed Differential Diagnosis Differential diagnosis: Likely laceration, abscess, abrasion, avulsion of skin and other (Cellulitis, wound infection, skin tear, DVT) Discharge Plan Discharge Clinical Impression: Infected wound Cellulitis Qualifiers: Site of cellulitis: extremity Site of cellulitis of extremity: lower extremity Laterality: left Qualified Code(s): L03.116 - Cellulitis of left lower limb Patient Disposition: Home Condition: Stable Instructions: Antibiotic Form, Wound Infection (ED), Cellulitis (ED) Additional Instructions: Wound culture was obtained and sent to the lab. Continue applying mupirocin cream to the affected area twice daily Continue taking the cephalexin and begin taking Bactrim Dressing changes twice daily-may change more frequently if soiled May take Tylenol/Motrin as needed for pain Keep wound clean and dry Watch for signs and symptoms of worsening infection-increase in redness, streaking, swelling, purulent discharge, or increase in pain. Follow up with your PCP for suture removal or return to the Express care. Patient Language: Kazakh Prescriptions: New sulfamethoxazole-trimethoprim [Bactrim] 400-80 mg tablet 1 tablet PO BID 10 Days Qty: 20 0RF No Action verapamil 120 mg tablet extended release PO levothyroxine 75 mcg tablet fluticasone furoate-vilanterol [Breo Ellipta] 100-25 mcg/dose blister with device 1 inh inhalation DAILY cephalexin 500 mg capsule mupirocin 2 % ointment TOPICAL Follow-up/Referrals: Ivan,BAM Berkowitz [Primary Care Provider] - Time of Disposition: 15:25 Quality NIHSS Nursing Documentation ED NIHSS nursing documentation: reviewed/agree
--- OUTSIDE RECORDS SUMMARY | 2024-08-09 15:05 | XMS_ITS | Referral Summary ---
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
--- OUTSIDE RECORDS SUMMARY | 2024-08-09 15:06 | XMS_ITS | Clinical Summary ---
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
--- OUTSIDE RECORDS SUMMARY | 2024-08-09 15:06 | XMS_ITS | Data Portability ---
Author Organization [facility] [employer], Main Office Address [address] [place] [address] Care Team Providers Care Liquor Department Manager Name Role Phone VIBHA CHEN Primary Care Provider [phone] VIBHA CHEN Referring Provider [phone] Assessment Encounter Date Assessment Date Assessment [...] deformity grinding crepitus and pain. X-rays show [id number] arthritis. She will continue with her exercises. [...] Lab hepatic function panel, serum 2022 024 [facility], [address], [place], [address], 4 03:50:19 BMP, serum or plasma 2022 024 [facility], [address], [place], [address], 4 03:50:18 CBC w/ auto diff 2022 024 [facility], [place], [address], 4 03:50:20 TSH + free T4, serum 2022 024 [facility], [address], [place], [address], 4 03:50:15 lipid panel, serum 2022 024 [facility], [address], [place], [address], 4 03:50:17 Referral None recorded. Procedures injection/a spiration joint/bursa (PROC) - in office procedure, administere d by provider 2022 023 [email or web address] In-Office Order, Internal Use Only DO Not Attach Compendium DO Not Attach Compendium, Do Not Delete/merge, [id number] 3 13:40:46 Surgeries None recorded. Imaging None recorded. Medication Orders Kenalog 10 mg/mL suspension for injection 2022 023 [email or web address] 4 [id number], [address], [id number], 3 15:12:11 ropivacaine (PF) 5 mg/mL (0.5 %) injection solution 2022 023 [email or web address] 4 [facility] #[id number], [address], [id number], 3 15:12:24 diclofenac sodium 75 mg tablet,miri yed release 2022 023 [email or web address] 4 [facility] #[id number], [address], [id number], 3 11:25:38 Patient TargetsNo targets recorded. Patient InstructionsNo instructions recorded. Reason for Referral None Reported. Results Created Date Observation Date Name Description Value Unit Range Abnormal Flag Note LastModifiedBy Organization Detail LastModifiedTime 04/27/19 23 04/28/2022 URINA LYSIS , COMPL ETE color yellow yellow normal Not Available [address], [address], 04/28/2022 13:42:43 04/27/19 23 04/28/2022 URINA LYSIS , COMPL ETE appearance clear clear normal Not Available [address], [address], 04/28/2022 13:42:43 04/27/19 23 04/28/2022 URINA LYSIS , COMPL ETE specific gravity 1.007 1.001- 1.035 normal Not Available [address], [address], 04/28/2022 13:42:43 04/27/19 23 04/28/2022 URINA LYSIS , COMPL ETE pH 7.5 5.0-8. 0 normal Not Available [address], [address], 04/28/2022 13:42:43 04/27/19 23 04/28/2022 URINA LYSIS , COMPL ETE glucose negati ve negati ve normal Not Available [address], [address], 04/28/2022 13:42:43 04/27/19 23 04/28/2022 URINA LYSIS , COMPL ETE bilirubin negati ve negati ve normal Not Available [address], [address], 04/28/2022 13:42:43 04/27/19 23 04/28/2022 URINA LYSIS , COMPL ETE ketones negati ve negati ve normal Not Available [address], [address], 04/28/2022 13:42:43 04/27/19 23 04/28/2022 URINA LYSIS , COMPL ETE occult blood negati ve negati ve normal Not Available [address], [address], 04/28/2022 13:42:43 04/27/19 23 04/28/2022 URINA LYSIS , COMPL ETE protein negati ve negati ve normal Not Available [address], [address], 04/28/2022 13:42:43 04/27/19 23 04/28/2022 URINA LYSIS , COMPL ETE nitrite negati ve negati ve normal Not Available [address], [address], 04/28/2022 13:42:43 04/27/19 23 04/28/2022 URINA LYSIS , COMPL ETE leukocyte esterase negati ve negati ve normal Not Available [address], [address], 04/28/2022 13:42:43 04/27/19 23 04/28/2022 URINA LYSIS , COMPL ETE WBC none seen /hpf < or = 5 normal Not Available [address], [address], 04/28/2022 13:42:43 04/27/19 23 04/28/2022 URINA LYSIS , COMPL ETE RBC none seen /hpf < or = 2 normal Not Available [facility] [address], [address], 04/28/2022 13:42:43 04/27/1904/28/2022 URINA LYSIS , COMPL ETE squamous epithelial cells none seen /hpf < or = 5 normal Not Available [address], [address], 04/28/2022 13:42:43 04/27/19 23 04/28/2022 URINA LYSIS , COMPL ETE bacteria none seen /hpf none seen normal Not Available [address], [address], 04/28/2022 13:42:43 04/27/19 23 04/28/2022 URINA LYSIS , COMPL ETE hyaline cast none seen /lpf none seen normal Not Available [address], [address], 04/28/2022 13:42:43 04/27/19 23 04/28/2022 CBC (INCL UDES DIFF/ PLT) hemoglobin 12.3 g/dL 11.7-1 5.5 normal Not Available [address], [address], 04/28/2022 13:42:42 04/27/19 23 04/28/2022 CBC (INCL UDES DIFF/ PLT) white blood cell count 4.3 thous and/u L 3.8-10 .8 normal Not Available [address], [address], 04/28/2022 13:42:42 04/27/19 23 04/28/2022 CBC (INCL UDES DIFF/ PLT) red blood cell count 4.07 serge on/uL 3.80-5 .10 normal Not Available [address], [address], 04/28/2022 13:42:42 04/27/19 23 04/28/2022 CBC (INCL UDES DIFF/ PLT) hematocrit 37.8 % 35.0-4 5.0 normal Not Available [address], [address], 04/28/2022 13:42:42 04/27/19 23 04/28/2022 CBC (INCL UDES DIFF/ PLT) MCV 92.9 fL 80.0-1 00.0 normal Not Available [address] [place], [address], 04/28/2022 13:42:42 04/27/19 23 04/28/2022 CBC (INCL UDES DIFF/ PLT) MCH 30.2 pg 27.0-3 3.0 normal Not Available [facility] [address], [address], 04/28/2022 13:42:42 04/27/19 23 04/28/2022 CBC (INCL UDES DIFF/ PLT) MCHC 32.5 g/dL 32.0-3 6.0 normal Not Available [facility] [address], [address], 04/28/2022 13:42:42 04/27/19 23 04/28/2022 CBC (INCL UDES DIFF/ PLT) RDW 12.7 % 11.0-1 5.0 normal Not Available [facility] [address], [address], 04/28/2022 13:42:42 04/27/19 23 04/28/2022 CBC (INCL UDES DIFF/ PLT) platelet count 207 thous and/u L 140-40 0 normal Not Available [address], [address], 04/28/2022 13:42:42 04/27/19 23 04/28/2022 CBC (INCL UDES DIFF/ PLT) MPV 10.3 fL 7.5-12 .5 normal Not Available [facility] [address], [address], 04/28/2022 13:42:42 04/27/19 23 04/28/2022 CBC (INCL UDES DIFF/ PLT) absolute neutrophils 2335 cells /uL 1500-7 800 normal Not Available [facility] [address], [address], 04/28/2022 13:42:42 04/27/19 23 04/28/2022 CBC (INCL UDES DIFF/ PLT) absolute lymphocytes 1367 cells /uL 850-39 00 normal Not Available [address], [address], 04/28/2022 13:42:42 04/27/19 23 04/28/2022 CBC (INCL UDES DIFF/ PLT) absolute monocytes 318 cells /uL 200-95 0 normal Not Available [address], [address], 04/28/2022 13:42:42 04/27/19 23 04/28/2022 CBC (INCL UDES DIFF/ PLT) absolute eosinophils 189 cells /uL 15-500 normal Not Available [facility] [address], [address], 04/28/2022 13:42:42 04/27/19 23 04/28/2022 CBC (INCL UDES DIFF/ PLT) absolute basophils 90 cells /uL 0-200 normal Not Available [facility] [address], [address], 04/28/2022 13:42:42 04/27/19 23 04/28/2022 CBC (INCL UDES DIFF/ PLT) neutrophils 54.3 % normal Not Available [facility] [address], [address], 04/28/2022 13:42:42 04/27/19 23 04/28/2022 CBC (INCL UDES DIFF/ PLT) lymphocytes 31.8 % normal Not Available [facility] [address], [address], 04/28/2022 13:42:42 04/27/19 23 04/28/2022 CBC (INCL UDES DIFF/ PLT) monocytes 7.4 % normal Not Available [facility] [address], [address], 04/28/2022 13:42:42 04/27/19 23 04/28/2022 CBC (INCL UDES DIFF/ PLT) eosinophils 4.4 % normal Not Available [address], [address], 04/28/2022 13:42:42 04/27/19 23 04/28/2022 CBC (INCL UDES DIFF/ PLT) basophils 2.1 % normal Not Available [facility] [address], [address], 04/28/2022 13:42:42 04/27/19 23 04/28/2022 B TYPE [...] ol. 2002; 40:97 6-982 . Not Available [address], [address], 04/28/2022 13:42:41 04/27/19 23 04/28/2022 HEPAT IC FUNCT ION PANEL protein, total 5.9 g/dL 6.1-8. 1 low Not Available [address], [address], 04/28/2022 13:42:40 04/27/1904/28/2022 HEPAT IC FUNCT ION PANEL albumin 4.0 g/dL 3.6-5. 1 normal Not Available [facility] [address], [address], 04/28/2022 13:42:40 04/27/19 23 04/28/2022 HEPAT IC FUNCT ION PANEL globulin 1.9 g/dL_ (calc ) 1.9-3. 7 normal Not Available [facility] [address], [address], 04/28/2022 13:42:40 04/27/19 23 04/28/2022 HEPAT IC FUNCT ION PANEL albumin/glob ulin ratio 2.1 (calc ) 1.0-2. 5 normal Not Available [address] [address] [place], [address], 04/28/2022 13:42:40 04/27/19 23 04/28/2022 HEPAT IC FUNCT ION PANEL bilirubin, total 0.6 mg/dL 0.2-1. 2 normal Not Available [address] [address] [place], [address], 04/28/2022 13:42:40 04/27/1904/28/2022 HEPAT IC FUNCT ION PANEL bilirubin, direct 0.1 mg/dL < or = 0.2 normal Not Available [address], [address], 04/28/2022 13:42:40 04/27/19 23 04/28/2022 HEPAT IC FUNCT ION PANEL bilirubin, indirect 0.5 mg/dL _(marysol c) 0.2-1. 2 normal Not Available [address], [address], 04/28/2022 13:42:40 04/27/19 23 04/28/2022 HEPAT IC FUNCT ION PANEL alkaline phosphatase 87 U/L 37-153 normal Not Available [address] [address] [place], [address], 04/28/2022 13:42:40 04/27/19 23 04/28/2022 HEPAT IC FUNCT ION PANEL AST 15 U/L 10-35 normal Not Available [address], [address], 04/28/2022 13:42:40 04/27/19 23 04/28/2022 HEPAT IC FUNCT ION PANEL ALT 13 U/L 6-29 normal Not Available [address] [place], [address], 04/28/2022 13:42:40 04/27/19 23 04/28/2022 BASIC METAB OLIC PANEL glucose 87 mg/dL 65-99 normal Fasti ng refer ence inter otoniel Not Available [address], [address], 04/28/2022 13:42:39 04/27/19 23 04/28/2022 BASIC METAB OLIC PANEL urea nitrogen (BUN) 16 mg/dL 7-25 normal Not Available [facility] [address], [address], 04/28/2022 13:42:39 04/27/1904/28/2022 BASIC METAB OLIC PANEL creatinine 0.68 mg/dL 0.60-0 .95 normal Not Available [address], [address], 04/28/2022 13:42:39 04/27/19 23 04/28/2022 BASIC METAB OLIC PANEL eGFR 87 mL/mi n/1.7 3m2 > or = 60 normal The eGFR is based on the CKD-E PI 2020 equat ion. To calcu late the new eGFR from a previ ous Creat inine or Cysta tin C resul t, go to https ://stella kramer.guadalupe esposito/jesica lyons s/ kdoqi /gfr% 5Fcal culat or Not Available [address], [address], 04/28/2022 13:42:39 04/27/1904/28/2022 BASIC METAB OLIC PANEL BUN/creatini ne ratio not applic able (calc ) 6-22 Not Available [address], [address], 04/28/2022 13:42:39 04/27/19 23 04/28/2022 BASIC METAB OLIC PANEL sodium 145 mmol/ L 135-14 6 normal Not Available [address], [address], 04/28/2022 13:42:39 04/27/19 23 04/28/2022 BASIC METAB OLIC PANEL potassium 4.6 mmol/ L 3.5-5. 3 normal Not Available [address], [address], 04/28/2022 13:42:39 04/27/19 23 04/28/2022 BASIC METAB OLIC PANEL chloride 108 mmol/ L 98-110 normal Not Available [address], [address], 04/28/2022 13:42:39 04/27/19 23 04/28/2022 BASIC METAB OLIC PANEL carbon dioxide 29 mmol/ L 20-32 normal Not Available [address], [address], 04/28/2022 13:42:39 04/27/19 23 04/28/2022 BASIC METAB OLIC PANEL calcium 8.9 mg/dL 8.6-10 .4 normal Not Available [address], [address], 04/28/2022 13:42:39 04/27/19 23 04/28/2022 LIPID PANEL WITH RATIO S triglyceride s 122 mg/dL <150 normal Not Available [address], [address], 04/28/2022 13:42:38 04/27/19 23 04/28/2022 LIPID PANEL WITH RATIO S cholesterol, total 231 mg/dL <200 high Not Available [address], [address], 04/28/2022 13:42:38 04/27/19 23 04/28/2022 LIPID PANEL WITH RATIO S HDL cholesterol 68 mg/dL > or = 50 normal Not Available [address], [address], 04/28/2022 13:42:38 04/27/1904/28/2022 LIPID PANEL WITH RATIO [...] 2061- 2068 (http ://ed ucati on.Qu Denise [employer]. com/f aq/FA Q164) Not Available [address], [address], 04/28/2022 13:42:38 04/27/1904/28/2022 LIPID PANEL WITH RATIO S chol/HDLC ratio 3.4 (calc ) <5.0 normal Not Available [address], [address], 04/28/2022 13:42:38 04/27/1904/28/2022 LIPID PANEL WITH RATIO S LDL/HDL ratio 2.0 (calc ) Below avera ge Risk: <2.34 [place] ge Risk: 2.35- 4.12 Moder ate Risk: 4.13- 5.56 High Risk: >5.57 Not Available [address], [address], 04/28/2022 13:42:38 04/27/19 23 04/28/2022 LIPID PANEL WITH RATIO S non HDL cholesterol 163 mg/dL _(marysol c) <130 high For patie nts with diabe lorne plus 1 major ASCVD risk facto r, treat ing to a non-H DL-C goal of <100 mg/dL (LDL- C of <70 mg/dL ) is mikey waller. Not Available [address] [address] [place], [address], 04/28/2022 13:42:38 04/27/19 23 04/28/2022 TSH+F REE T4 TSH 2.60 mIU/L 0.40-4 .50 normal Not Available [facility] [address] [address] [address] [place], [address], 04/28/2022 13:42:38 04/27/19 23 04/28/2022 TSH+F REE T4 T4, free 1.1 NG/dL 0.8-1. 8 normal Not Available [facility] [address] [place], [address], 04/28/2022 13:42:38 07/23/19 24 07/24/2023 TSH+F REE T4 TSH 2.83 mIU/L 0.40-4 .50 normal Not Available [address], [address], 07/24/2023 03:50:15 07/23/19 24 07/24/2023 TSH+F REE T4 T4, free 1.0 NG/dL 0.8-1. 8 normal Not Available [facility] [address] [place], [address], 07/24/2023 03:50:15 07/23/19 24 07/24/2023 LIPID PANEL WITH RATIO S cholesterol, total 242 mg/dL <200 high Not Available [address], [address], 07/24/2023 03:50:17 07/23/19 24 07/24/2023 LIPID PANEL WITH RATIO S HDL cholesterol 68 mg/dL > or = 50 normal Not Available [facility] [address], [place], [address], 07/24/2023 03:50:17 07/23/19 24 07/24/2023 LIPID PANEL WITH RATIO S triglyceride s 125 mg/dL <150 normal Not Available [address], [address], 07/24/2023 03:50:17 07/23/19 24 07/24/2023 LIPID PANEL [...] 2061- 2068 (http ://ed ucati on.Qu Denise [employer]. com/f aq/FA Q164) Not Available [address], [address], 07/24/2023 03:50:17 07/23/19 24 07/24/2023 LIPID PANEL WITH RATIO S chol/HDLC ratio 3.6 (calc ) <5.0 normal Not Available [address], [address], 07/24/2023 03:50:17 07/23/19 24 07/24/2023 LIPID PANEL WITH RATIO S LDL/HDL ratio 2.2 (calc ) Below avera ge Risk: <2.34 [place] ge Risk: 2.35- 4.12 Moder ate Risk: 4.13- 5.56 High Risk: >5.57 Not Available [address], [address], 07/24/2023 03:50:17 07/23/19 24 07/24/2023 LIPID PANEL WITH RATIO S non HDL cholesterol 174 mg/dL _(marysol c) <130 high For patie nts with diabe lorne plus 1 major ASCVD risk facto r, treat ing to a non-H DL-C goal of <100 mg/dL (LDL- C of <70 mg/dL ) is consi dered a thera peuti c optio n. Not Available [address] [address] [place], [address], 07/24/2023 03:50:17 07/23/19 24 07/24/2023 BASIC METAB OLIC PANEL glucose 83 mg/dL 65-99 normal Fasti ng refer ence inter otoniel Not Available [address] [address] [place], [address], 07/24/2023 03:50:18 07/23/19 24 07/24/2023 BASIC METAB OLIC PANEL urea nitrogen (BUN) 23 mg/dL 7-25 normal Not Available [address] [place], [address], 07/24/2023 03:50:18 07/23/19 24 07/24/2023 BASIC METAB OLIC PANEL creatinine 0.77 mg/dL 0.60-0 .95 normal Not Available [address] [place], [address], 07/24/2023 03:50:18 07/23/19 24 07/24/2023 BASIC METAB OLIC PANEL eGFR 76 mL/mi n/1.7 3m2 > or = 60 normal Not Available [address], [address], 07/24/2023 03:50:18 07/23/19 24 07/24/2023 BASIC METAB OLIC PANEL BUN/creatini ne ratio SEE NOTE: (calc ) 6-22 Not Repor yuniel: BUN and Creat inine are withi n refer ence range . Not Available [facility] [address], [address], 07/24/2023 03:50:18 07/23/19 24 07/24/2023 BASIC METAB OLIC PANEL sodium 142 mmol/ L 135-14 6 normal Not Available [address], [address], 07/24/2023 03:50:18 07/23/19 24 07/24/2023 BASIC METAB OLIC PANEL potassium 4.1 mmol/ L 3.5-5. 3 normal Not Available [facility] [address], [address], 07/24/2023 03:50:18 07/23/19 24 07/24/2023 BASIC METAB OLIC PANEL chloride 108 mmol/ L 98-110 normal Not Available [address], [address], 07/24/2023 03:50:18 07/23/19 24 07/24/2023 BASIC METAB OLIC PANEL carbon dioxide 29 mmol/ L 20-32 normal Not Available [address], [address], 07/24/2023 03:50:18 07/23/19 24 07/24/2023 BASIC METAB OLIC PANEL calcium 8.3 mg/dL 8.6-10 .4 low Not Available [address], [address], 07/24/2023 03:50:18 07/23/19 24 07/24/2023 HEPAT IC FUNCT ION PANEL protein, total 5.5 g/dL 6.1-8. 1 low Not Available [address], [address], 07/24/2023 03:50:19 07/23/19 24 07/24/2023 HEPAT IC FUNCT ION PANEL albumin 3.7 g/dL 3.6-5. 1 normal Not Available [address] [address] [place], [address], 07/24/2023 03:50:19 07/23/19 24 07/24/2023 HEPAT IC FUNCT ION PANEL globulin 1.8 g/dL_ (calc ) 1.9-3. 7 low Not Available [address] [address] [place], [address], 07/24/2023 03:50:19 07/23/19 24 07/24/2023 HEPAT IC FUNCT ION PANEL albumin/glob ulin ratio 2.1 (calc ) 1.0-2. 5 normal Not Available [address], [address], 07/24/2023 03:50:19 07/23/19 24 07/24/2023 HEPAT IC FUNCT ION PANEL bilirubin, total 0.4 mg/dL 0.2-1. 2 normal Not Available [address], [address], 07/24/2023 03:50:19 07/23/19 24 07/24/2023 HEPAT IC FUNCT ION PANEL bilirubin, direct 0.1 mg/dL < or = 0.2 normal Not Available [address], [address], 07/24/2023 03:50:19 07/23/19 24 07/24/2023 HEPAT IC FUNCT ION PANEL bilirubin, indirect 0.3 mg/dL _(marysol c) 0.2-1. 2 normal Not Available [address], [address], 07/24/2023 03:50:19 07/23/19 24 07/24/2023 HEPAT IC FUNCT ION PANEL alkaline phosphatase 96 U/L 37-153 normal Not Available [facility] [address], [address], 07/24/2023 03:50:19 07/23/19 24 07/24/2023 HEPAT IC FUNCT ION PANEL AST 12 U/L 10-35 normal Not Available [address], [address], 07/24/2023 03:50:19 07/23/19 24 07/24/2023 HEPAT IC FUNCT ION PANEL ALT 13 U/L 6-29 normal Not Available [address], [address], 07/24/2023 03:50:19 07/23/19 24 07/24/2023 CBC (INCL UDES DIFF/ PLT) white blood cell count 4.7 thous and/u L 3.8-10 .8 normal Not Available [address], [address], 07/24/2023 03:50:20 07/23/19 24 07/24/2023 CBC (INCL UDES DIFF/ PLT) red blood cell count 3.93 serge on/uL 3.80-5 .10 normal Not Available [address], [address], 07/24/2023 03:50:20 07/23/19 24 07/24/2023 CBC (INCL UDES DIFF/ PLT) hemoglobin 12.3 g/dL 11.7-1 5.5 normal Not Available [address], [address], 07/24/2023 03:50:20 07/23/19 24 07/24/2023 CBC (INCL UDES DIFF/ PLT) hematocrit 36.6 % 35.0-4 5.0 normal Not Available [address], [address], 07/24/2023 03:50:20 07/23/19 24 07/24/2023 CBC (INCL UDES DIFF/ PLT) MCV 93.1 fL 80.0-1 00.0 normal Not Available [address], [address], 07/24/2023 03:50:20 07/23/19 24 07/24/2023 CBC (INCL UDES DIFF/ PLT) MCH 31.3 pg 27.0-3 3.0 normal Not Available [address], [address], 07/24/2023 03:50:20 07/23/19 24 07/24/2023 CBC (INCL UDES DIFF/ PLT) MCHC 33.6 g/dL 32.0-3 6.0 normal Not Available [address], [address], 07/24/2023 03:50:20 07/23/19 24 07/24/2023 CBC (INCL UDES DIFF/ PLT) RDW 13.2 % 11.0-1 5.0 normal Not Available [address], [address], 07/24/2023 03:50:20 07/23/19 24 07/24/2023 CBC (INCL UDES DIFF/ PLT) platelet count 197 thous and/u L 140-40 0 normal Not Available [address], [address], 07/24/2023 03:50:20 07/23/19 24 07/24/2023 CBC (INCL UDES DIFF/ PLT) MPV 10.0 fL 7.5-12 .5 normal Not Available [address], [address], 07/24/2023 03:50:20 07/23/19 24 07/24/2023 CBC (INCL UDES DIFF/ PLT) absolute neutrophils 2303 cells /uL 1500-7 800 normal Not Available [address], [address], 07/24/2023 03:50:20 07/23/19 24 07/24/2023 CBC (INCL UDES DIFF/ PLT) absolute lymphocytes 1669 cells /uL 850-39 00 normal Not Available [address], [address], 07/24/2023 03:50:20 07/23/19 24 07/24/2023 CBC (INCL UDES DIFF/ PLT) absolute monocytes 357 cells /uL 200-95 0 normal Not Available [address], [address], 07/24/2023 03:50:20 07/23/19 24 07/24/2023 CBC (INCL UDES DIFF/ PLT) absolute eosinophils 301 cells /uL 15-500 normal Not Available [address], [address], 07/24/2023 03:50:20 07/23/19 24 07/24/2023 CBC (INCL UDES DIFF/ PLT) absolute basophils 71 cells /uL 0-200 normal Not Available [facility] [address], [address], 07/24/2023 03:50:20 07/23/19 24 07/24/2023 CBC (INCL UDES DIFF/ PLT) neutrophils 49 % normal Not Available [address], [address], 07/24/2023 03:50:20 07/23/19 24 07/24/2023 CBC (INCL UDES DIFF/ PLT) lymphocytes 35.5 % normal Not Available [address], [address], 07/24/2023 03:50:20 07/23/19 24 07/24/2023 CBC (INCL UDES DIFF/ PLT) monocytes 7.6 % normal Not Available [address], [address], 07/24/2023 03:50:20 07/23/19 24 07/24/2023 CBC (INCL UDES DIFF/ PLT) eosinophils 6.4 % normal Not Available [facility] [address] [place], [address], 07/24/2023 03:50:20 07/23/19 24 07/24/2023 CBC (INCL UDES DIFF/ PLT) basophils 1.5 % normal Not Available [facility] [address] [place], [address], 07/24/2023 03:50:20 05/09/19 23 05/08/2022 US, dawson mancini s, idris extre mity No observ ation record ed. MIGRATION. [facility] (Imaging) [address] [place] [address] [address] [facility], [place], [address], 06/14/2022 00:50:57 05/10/19 23 04/26/2022 XR, tibia + fibul a No observ ation record ed. MIGRATION. [facility] [address], [place], [address], 06/14/2022 00:50:57 05/10/19 23 05/08/2022 US, echoc ardio gram, trans thora cic, compl ete, w/ color flow No observ ation record ed. MIGRATION. [facility] (Cardiology & Emg) [address] [place] [address] [address], [place], [address], 06/14/2022 00:50:57 05/11/19 23 04/26/2022 XR, chest , 2 view No observ ation record ed. MIGRATION. [facility] [address], [place], [address], 06/14/2022 00:50:57 06/02/19 23 06/01/2022 US, pelvi s, compl ete No observ ation record ed. [id number] [facility] [address], [place], [address], 06/14/2022 00:50:57 Result Notes None recorded. Problems Name Problem SNOMED Code Status Onset Date Resolution Date Notes Provider Name and Address Organization Details Recorded Time Edema of lower extremity 834060133 Active 2022 Not Available [facility] 3 00:46:25 Contusion of right lower leg 6862747804087 9109 Active 2022 Not Available [facility] 3 00:46:25 Abrasion of skin of right lower leg 6259876352142 9107 Active 2021 Not Available [facility] 3 00:46:25 Benign essential hypertensi on 2526123 Active 2019 Not Available [facility] 3 00:46:25 Asthma 923682747 Active 2019 Not Available [facility] 3 00:46:25 Accidental fall Active Not Available [facility] 3 00:46:25 Lumbar spondylosi s 938657710 Active 2021 Not Available [facility] 3 00:46:26 Long-term drug therapy Active 2021 Not Available [facility] 3 00:46:26 Current tear of lateral cartilage AND/OR meniscus of knee Active Not Available [facility] 3 00:46:26 Knee pain Active Not Available [facility] 3 00:46:26 Pain of right hip joint 0300428194718 02 Active 2021 Not Available [facility] 3 00:46:26 Osteoarthr itis of left knee joint 5094156378881 09 Active 2021 Not Available [facility] 3 00:46:26 Hypothyroi dism following radioiodin e therapy 50840782 Active 2021 Not Available [facility] 3 00:46:26 Hypothyroi dism 00642273 Active 2018 Not Available [facility] 3 00:46:27 Pain of left knee joint 4502111032686 07 Active 2021 Not Available [facility] 3 00:46:27 Upper respirator y infection 99326825 Active 2021 Not Available [facility] 3 00:46:27 Hyperlipid emia 15108749 Active 2021 Not Available [facility] 3 00:46:27 Derangemen t of knee 46218239 Active Not Available [facility] 3 00:46:27 COVID-19 300367807 Active 2021 Not Available [facility] 3 00:46:27 Heart murmur 85023116 Active 2022 Not Available [facility] 3 00:46:28 Pruritic rash 43856905 Active 2022 WILIAM Rodríguez [address], [place], [address] , [facility] 3 12:20:49 Allergic rhinitis 06335698 Active 2023 WILIAM Rodríguez [address], [place], [address] , [facility] 4 13:12:48 Problem Notes None recorded. Procedures Surgical History Date Name Laterality Status Provider Name and Address Organization Details Recorded Time 10/13/19 23 Ortho - Cortisone Injection completed Moises Dukes MD [address], [place], [address], [facility] 10/12/2022 14:04:53 09/15/19 04 Date of Last Colonoscopy completed Not Available [facility] 06/14/2022 00:42:11 09/15/19 04 Colonoscopy completed Not Available [facility] 06/14/2022 00:42:15 procedure on tibia completed Not Available [facility] 06/14/2022 00:42:15 Tonsillectomy completed Not Available [facility] 06/14/2022 00:42:15 Cholecystectomy completed Not Available [facility] 06/14/2022 00:42:15 Sinus Surgery completed Not Available [facility] 06/14/2022 00:42:15 Imaging Results Imaging Date Name Status LastModified by Organiz ation Details LastModified Time 04/26/2022 XR, tibia + fibula completed [id number].[id number] 026 [facility] [address], [place], [address], 06/14/2022 00:50:57 04/26/2022 XR, chest, 2 view completed MIGRATION.[id number] 026 [facility] [address], [place], [address], 06/14/2022 00:50:57 05/08/2022 US, duplex, venous, lower extremity completed MIGRATION.[id number] 026 [facility] (Imaging) [address] [place] [address] [address], [place], [address], 06/14/2022 00:50:57 05/08/2022 US, echocardiogram , transthoracic, complete, w/ color flow completed MIGRATION.[id number] [address] [place] [address] (Cardiology & Emg) [address] [place] [address] [address], [place], [address], 06/14/2022 00:50:57 06/01/2022 US, pelvis, complete completed MIGRATION.[id number] 026 [facility] [address], [place], [address], 06/14/2022 00:50:57 Procedure Notes None recorded. Medical Equipment None Reported. Allergies Allergen ID Allergen Name Allergen Category Reaction Reaction Severity Criticality Documentation Date Start Date Code Code System Note Provider Name and Address Organization Details Recorded Time 291 azithromy chio medicatio n Not available Not available Not available 06/14/2022 10630 RxNorm Not Available On license of [facility] 00:50:26 Medications Name Sig Start Date Stop [...] mg by injectio n route. 12/11 completed [facility]: 0003-049 08-03 Not Available Not Available Not [...] administ ered by the provider 10/19 completed [facility]: 0409-427 17 Not Available Not Available Not [...] mg by injectio n route. 12/11 completed [facility] 92307-82 07-15 Not Available Not Available Not Available [...] Updated DateTime 10/12/2022 170.18 cm 23.5 kg/m2 72543.86 g Flor Pratt CNA [facility] 10/12/2022 13:39:18 Date Recorded Body height Body temperature Body mass index (BMI) Body weight Respiratory rate Oxygen saturation Oxygen saturation in Arterial blood by Pulse oximetry Heart rate Systolic blood pressure Diastolic blood pressure Provider Name and Address Organization Details Last Updated DateTime 3 170.18 cm 97.3 [degF] 22.9 kg/m2 23144.4 9 g 16 /min 97 % 97 % 70 /min 132 mm[Hg] 82 mm[Hg] SKYLER Richardson [facility] 3 11:26:33 Date Recorded Body mass index (BMI) Body height Body weight Provider Name and Address Organization Details Last Updated DateTime 02/28/2022 21.9 kg/m2 170.18 cm 38342.93 g Not Available [facility] 06/14/2022 00:45:49 Date Recorded Body mass index (BMI) Body height Oxygen saturation Oxygen saturation in Arterial blood by Pulse oximetry Heart rate Body temperature Body weight Systolic blood pressure Diastolic blood pressure Provider Name and Address Organization Details Last Updated DateTime 3 23.5 kg/m2 170.18 cm 98 % 98 % 76 /min 98.1 [degF] 89824.8 6 g 128 mm[Hg] 70 mm[Hg] Not Available [facility] 3 00:45:44 Date Recorded Body mass index (BMI) Body height Oxygen saturation Oxygen saturation in Arterial blood by Pulse oximetry Heart rate Body temperature Body weight Systolic blood pressure Diastolic blood pressure Systolic blood pressure Diastolic blood pressure Provider Name and Address Organization Details Last Updated DateTime 3 22.9 kg/m2 170.18 cm 99 % 99 % 78 /min 97.8 [degF] 67754.4 9 g 126 mm[Hg] 60 mm[Hg] 140 mm[Hg] 70 mm[Hg] Not Available On license of [facility] 00:45:44 Social History Question Answer Notes LastModified by Organizat ion Details LastModified Time Tobacco Smoking Status Former Smoker quit 30 years ago Not Available On license of [facility] 06/14/2022 00:42:02 What Is Your Level Of Alcohol Consumption? None MIGRATION.07435 11925 Information not available 06/14/2022 Are You Blind Or Do You Have Difficulty Seeing? No MIGRATION.79649 23510 Information not available 06/14/2022 What Is Your Level Of Caffeine Consumption? Moderate MIGRATION.81064 70555 Information not available 06/14/2022 How Much Tobacco Do You Chew? None MIGRATION.72170 27365 Information not available 06/14/2022 In The 14 Days Before Symptom Onset, Have You Had Close Contact With A Laboratory-confir med COVID-19 While That Case Was Ill? No MIGRATION.47082 75704 Information not available 06/14/2022 In The 14 Days Before Symptom Onset, Have You Had Close Contact With A Person Who Is Under Investigation For COVID-19 While That Person Was Ill? No MIGRATION.90519 19905 Information not available 06/14/2022 Are You Deaf Or Do You Have Serious Difficulty Hearing? No MIGRATION.51188 36155 Information not available 06/14/2022 What Type Of Diet Are You Following? REGULAR MIGRATION.48215 15941 Information not available 06/14/2022 Which Illicit Or Recreational Drugs Have You Used? None MIGRATION.56188 21836 Information not available 06/14/2022 Do You Or Have You Ever Used E-cigarettes Or Vape? Never Used Electronic Cigarettes MIGRATION.13837 83215 Information not available 06/14/2022 What Is Your Occupation? Retired MIGRATION.87735 86718 Information not available 06/14/2022 Have There Been Any Changes To Your Family Or Social Situation? No MIGRATION.47694 91192 Information not available 06/14/2022 Do You Use Insect Repellent Routinely? No MIGRATION.32537 65441 Information not available 06/14/2022 What Was The Date Of Your Most Recent Tobacco Screening? 11/22/2021 MIGRATION.02880 06661 Information not available 06/14/2022 What Is Your Relationship Status? MIGRATION.77143 30797 Information not available 06/14/2022 Do You Use Your Seat Belt Or Car Seat Routinely? Yes MIGRATION.05181 20795 Information not available 06/14/2022 Do You Have Smoke And Carbon Monoxide Detectors In Your Home? Yes MIGRATION.07594 23446 Information not available 06/14/2022 Do You Or Have You Ever Used Smokeless Tobacco? Never Used Smokeless Tobacco MIGRATION.26846 39027 Information not available 06/14/2022 Do You Use Any Illicit Or Recreational Drugs? No MIGRATION.92872 73374 Information not available 06/14/2022 Do You Use Sunscreen Routinely? Yes MIGRATION.50608 09501 Information not available 06/14/2022 Have You Recently Traveled Abroad? No MIGRATION.87413 40660 Information not available 06/14/2022 Do You Have Any Dietary Restrictions? No MIGRATION.32647 74865 Information not available 06/14/2022 Do You Or Have You Ever Used Any Other Forms Of Tobacco Or Nicotine? No MIGRATION.39408 84228 Information not available 06/14/2022 Sex: Unknown Functional Status Question Answer Note LastModified by Philly ion Details LastModified Time Do you have difficulty walking or climbing stairs? No MIGRATION.3770248 026 Information not available 06/14/2022 Do you have transportation difficulties? No MIGRATION.9962354 026 Information not available 06/14/2022 Are you able to walk? YESWOREST MIGRATION.5157494 026 Information not available 06/14/2022 Do you have difficulty doing errands alone? No MIGRATION.9617765 026 Information not available 06/14/2022 Are you able to care for yourself? Yes MIGRATION.7085742 026 Information not available 06/14/2022 Do you have difficulty dressing or bathing? No MIGRATION.0591041 026 Information not available 06/14/2022 What is your exercise level? Moderate MIGRATION.5028169 026 Information not available 06/14/2022 Mental Status Question Answer Note LastModified by [employer] ion Details LastModified Time Do you have difficulty concentrating, remembering or making decisions? No MIGRATION.905239451 6 Information not available 06/14/2022 Family History Relationship Description Onset Age of this Age Resolved Age Notes LastModified by Organization Details LastModified Time Sister Atrial fibrillation 81 MIGRATION.539 [id number] Not available 06/14/2022 00:42:21 Father Family history of malignant neoplasm MIGRATION.120 [id number] Not available 06/14/2022 00:42:21 Medical History Condition Response ARTHRITIS Y HYPOTHYROIDISM Y ASTHMA Y HYPERTENSION Y HIGH CHOLESTEROL / HYPERLIPIDEMIA Y Gynecological History Statement/Question Response Abnormal Pap [...] zoster, unspecified formulation 2 completed Not Available On license of [facility] 06/14/2022 00:50:19 Influenza, high-dose, trivalent, PF 9 completed Not Available [facility] 06/14/2022 00:50:19 pneumococcal polysaccharide PPV23 9 completed Not Available [facility] 06/14/2022 00:50:19 Past Encounters Encounter ID Performer Location Encounter Start Date Encounter Closed Date Diagnosis/Indication Diagnosis SNOMED-CT Code Diagnosis ICD10 Code Diagnosis Note [id number] [facility] [address] [place] [address] 06/14/2020 00:00:00 06/14/2020 22:45:55 [id number] [facility] [address] [place] [address] 07/19/2020 00:00:00 07/19/2020 17:08:40 [id number] [facility] [address] [place] [address] 10/19/2020 00:00:00 10/31/2020 21:29:02 [id number] [facility] [address] [place] [address] 05/25/2021 00:00:00 06/13/2021 18:29:47 [id number] [facility] [address] [place] [address] 10/20/2021 00:00:00 10/20/2021 13:44:58 [id number] [facility] [address] [place] [address] 11/17/2021 00:00:00 11/17/2021 14:11:10 [id number] [facility] [address] [place] [address] 11/22/2021 00:00:00 12/13/2021 23:24:32 [id number] [facility] [address] [place] [address] 02/28/2022 00:00:00 02/28/2022 14:33:59 [id number] [facility] [address] [place] [address] 04/26/2022 00:00:00 05/15/2022 22:14:50 [id number] [facility] [address] [place] [address] 05/23/2022 00:00:00 06/13/2022 18:40:29 [id number] Moises Dukes MD [facility] [address] [place] [address] 10/12/2022 13:36:00 10/12/2022 15:17:39 Osteoarthritis of left knee joint 1463313263 28752 M17.12 Pain of le ft knee joint 5798408089 41747 M25.562 Lumbar spondylosis 91665 0009 M47.854 [id number] WILIAM Rodríguez [facility] [address] [place] [address] 12/12/2022 11:18:55 12/12/2022 11:56:13 Benign essential hypertension 7445867 I10 stable on hctz 12.5mg daily and verapamil ER 120mg daily Asthma 682863218 J45.90 9 stable on breo (PRN per her use) and antihistam ine Hyperlipidemia 21569533 E78.5 pt declines statin therapy due to muscle aches. mild LDL and triglyceri de elevation on labs. follow labs in apr. Hypothyroidism 51230020 E03.9 stable on supplement . repeat labs in apr. Long-term drug therapy 390039076 Z79.899 Health Concerns Section Related Observation LastModified by Organization Detai ls LastModified Time None Recorded Concern Status LastModified by Organization Details LastModified Time None Recorded Advance Directives Directive None Recorded Payers Encounter Date Sequence Insurance Name Policy Number Policy Castillo Covered Member ID Castillo Member ID Guarantor Name 10/12/2022 1 [facility] (MEDICARE REPLACEMENT/A DVANTAGE - PPO) [id number] Tamar Solis [id number] Tamar Solis 12/12/2022 1 [facility] (MEDICARE REPLACEMENT/A DVANTAGE - PPO) [id number] Tamar Solis [id number] Tamar Soils Notes Date Note Type Note Provider Name [...] no change in bowel/bladder habits;swelling;warmth;grinding Not Available [facility] [employer] 02/28/2022 14:33:59 023 text/ht ml Generic HPI [...] no hair changes;dry skin;skin changes Not Available [facility] [employer] 05/15/2022 22:14:50 023 text/ht ml Asthma F/UReported [...] no hair changes;dry skin;skin changes Not Available [facility] 06/13/2022 18:40:29 023 text/ht ml Patient presents knee pain left greater than right. He has had pain for some time now it seems to worse time pain is localized primarily to the left knee is worse with activity. Moises Dukes MD [address] [facility], [facility] [address], [place], [address], [facility] 10/12/2022 14:06:27 023 text/ht ml AsthmaReported bypatient.Notes:stable [...] changes; no hair changes WILIAM Rodríguez [address] [facility], [facility] [address], [place], [address], [facility] [employer] [facility] 12/12/2022 13:06:45 OBGyn Episode No OBEpisode recorded.
--- OUTSIDE RECORDS SUMMARY | 2024-08-09 15:06 | XMS_ITS | Continuity of Care Document ---
Author Organization [facility] Address [address] [place] [address] [address] [facility] [address] [place] [address] Phone Care Team Providers Care Message Clerk Name Role Phone Barbara Ballesteros Unavailable Unavailable Procedures Procedure Date Eye Exam Established Pt Advance Directives Directive Yes / No Effective Date File Name No Information Encounters Encounter Description Practice Location Reason(s) For Visit Diagnoses Date Provider Providers Copied on Encounter [facility], [id number] [place] [address] [address], [place], [place], [id number], [place] tel:[phone] [facility] No Information 4-200 7 Lesli Jimenez. [address] [facility] , [address], [place], [address], [place]. tel:[phone] Family History Family Member Type Diagnosis Age At Onset No Information Payers Payer name Insurance type Covered green party ID Authoriza tion(s) [place] [id number] Social History Type Description Quantity Date Captured [...]
--- OUTSIDE RECORDS SUMMARY | 2024-08-09 15:06 | XMS_ITS | Data Portability ---
Author Organization [facility] SOL[facility]os Address [address] [place] [address] Care Team Providers Care Resident Services Coordinator Name Role Phone VIBHA CHEN Primary Care Provider Unavailab le Assessment No assessment recorded. Plan of Treatment Reminders Order Date Submit Date Provider Last Modified By Organization Details Last Modified Time Details Appointments NURSE ONLY 2024 11:00A M WILIAM Rodríguez Not available Not available Not available ANY 15 2024 01:00P M WILIAM Rodríguez Not available Not available Not available Lab CBC w/ auto diff 2024 025 [email or web address] [facility], [address], [place], [address], 07/15/2024 14:03:27 BMP, serum or plasma 2024 025 [email or web address] [facility], [address], [place], [address], 07/15/2024 14:03:26 hepatic function panel, serum 2024 025 [email or web address] [facility], [address], [place], [address], 07/15/2024 14:03:26 TSH + free T4, serum 2024 025 MELANIE [facility], [address], [place], [address], 08/07/2024 10:56:12 lipid panel, serum 2024 025 [email or web address] [facility], [address], [place], [address], 07/15/2024 14:03:26 CBC w/ auto diff 2023 024 [facility], [address], [address], [place], [address], 02/14/2024 10:33:10 BMP, serum or plasma 2023 024 SEYMOUR [facility], [address], [address], [place], [address], 02/14/2024 10:33:10 hepatic function panel, serum 2023 024 [facility], [address], [address], [place], [address], 02/14/2024 10:33:10 TSH + free T4, serum 2023 024 [facility], [address], [address], [place], [address], 02/14/2024 10:33:09 lipid panel, serum 2023 024 [facility], [address], [address], [place], [address], 02/14/2024 10:33:09 Referral None recorded. Procedures None recorded. Surgeries None recorded. Imaging US, duplex, carotid artery 2024 025 [facility], [address], [place], [address], 07/30/2024 17:20:52 XR, chest, 2 view 2023 024 [facility], [address], [place], [address], 01/15/2024 17:28:43 Medication Orders prednison e 50 mg tablet 2023 MELANIE [facility][id number], [address] [facility], [place], [place], [id number], 02/14/2024 16:02:29 amoxicill in 875 mg-potass ium clavulana te 125 mg tablet 2023 [email or web address] [facility] #[id number], [address] [facility], [place], [place], [id number], 02/14/2024 16:02:03 omeprazol e 40 mg capsule,d elayed release 2023 [email or web address] [facility] #[id number], [address] [place] [address], [id number], 01/15/2024 13:55:40 Patient TargetsNo targets recorded. Patient [...] [#/volume] in blood by automated count absol hoopa neutr ophil s Not Available Not Available 07/01/2024 17:43:16 07/23/19 24 07/24/2023 CBC W Auto Diffe renti al panel - Blood lymphocytes [#/volume] in blood by automated count absol hoopa lymph ocyte s Not Available Not Available 07/01/2024 17:43:16 07/23/19 24 07/24/2023 CBC W Auto Diffe renti al panel - Blood monocytes [#/volume] in blood by automated count absol hoopa monoc ytes Not Available Not Available 07/01/2024 17:43:16 07/23/19 24 07/24/2023 CBC W Auto Diffe renti al panel - Blood eosinophils [#/volume] in blood by automated count absol hoopa eosin ophil s Not Available Not Available 07/01/2024 17:43:16 07/23/19 24 07/24/2023 CBC W Auto Diffe renti al panel - Blood basophils [#/volume] in blood by automated count absol hoopa basop hils Not Available Not Available 07/01/2024 [...] 2000 panel - Serum or Plasm a globulin [...] 1999 panel - Serum or Plasm a bilirubin.di [...] 1999 panel - Serum or Plasm a alanine aminotransfe rase [enzymatic activity/vol ume] in serum or plasma ALT Not Available Not Available 06/14 17:43:16 07/23/19 24 07/24/2023 Basic metab olic 2000 panel - Serum or Plasm a glucose [mass/volume ] in serum or plasma gluco se Not Available Not Available 07/01/2024 17:43:15 07/23/19 24 07/24/2023 Basic metab olic 2000 panel - Serum or Plasm a urea nitrogen [mass/volume ] in serum or plasma urea nitro gen (BUN) Not Available Not Available 07/01/2024 17:43:15 07/23/19 24 07/24/2023 Basic metab olic 1999 panel - Serum or Plasm a creatinine [mass/volume ] in serum or plasma creat inine Not Available Not Available 07/01/2024 17:43:15 07/23/19 24 07/24/2023 Basic metab olic 1999 panel - Serum or Plasm a glomerular filtration rate/1.73 sq M.predicted [volume rate/area] in serum, plasma or blood by creatinine-b ased formula (CKD-epi 2020) eGFR Not Available Not Available 06/14 17:43:15 07/23/19 24 07/24/2023 Basic metab olic 1999 panel - Serum or Plasm a urea nitrogen/cre atinine [mass ratio] in serum or plasma SEE NOTE: BUN/c reati nine ratio Not Available Not Available 07/01/2024 17:43:15 07/23/19 24 07/24/2023 Basic metab olic 1999 panel - Serum or Plasm a sodium [moles/volum e] in serum or plasma sodiu m Not Available Not Available 07/01/2024 17:43:15 07/23/19 24 07/24/2023 Basic metab olic 1999 panel - Serum or Plasm a potassium [moles/volum e] in serum or plasma potas sium Not Available Not Available 07/01/2024 17:43:15 07/23/19 24 07/24/2023 Basic metab olic 1999 panel - Serum or Plasm a chloride [moles/volum e] in serum or plasma chlor lexus Not Available Not Available 07/01/2024 17:43:15 07/23/19 24 07/24/2023 Basic metab olic 1999 panel - Serum or Plasm a carbon dioxide, total [moles/volum e] in serum or plasma carbo n dioxi de Not Available Not Available 07/01/2024 17:43:15 07/23/19 24 07/24/2023 Basic metab olic 1999 panel - Serum or Plasm a calcium [...] 2 view No observ ation record ed. [facility] [address], [place], [address], 01/15/2024 17:46:07 07/31/19 25 07/30/2024 US, janene mancini id arter y No observ ation record ed. [facility] [address], [place], [address], 08/06/2024 16:09:56 Result Notes None recorded. Problems Name Problem SNOMED Code Status Onset Date Resolution Date Notes Provider Name and Address Organization Details Recorded Time Long-term drug therapy Active 2023 WILIAM Rodríguez Attn: Najma elias,[address] [place], [place], [address] [place] [address], [place] - [facility] 4 14:16:47 Hyperlipidemia 37573742 Active 2023 WILIAM Rodríguez Attn: Najma elias,[address] [place], [address], [place] [facility] 4 14:16:49 Asthma 731072406 Active 2023 WILIAM Rodríguez Attn: Najma elias,[address] [place], [address], [place] [facility] 4 14:16:50 Acid reflux 183028242 Active 2023 WILIAM Rodríguez Attn: Najma elias,[address] [place], [address], [place] [facility] 4 14:16:52 Hypothyroidism 11259266 Active 2023 WILIAM Rodríguez Attn: Najma elias,[address] [facility], [place], [address], [place] - [facility] 4 14:16:54 Benign essential hypertension 6525053 Active 2023 WILIAM Rodríguez Attn: Najma elias,[address] [place], [address], [place] - [facility] 4 14:16:55 Body mass index 20-24 - normal 412031559 Active 2024 Elieser Forbes MA null, [place] - [facility] 5 14:00:53 Problem Notes None recorded. Procedures Surgical History None recorded. Imaging Results Imaging Date Name Status LastModified by Organiz ation Details LastModified Time 01/15/2024 XR, chest, 2 view completed [facility] [address], [place], [address], 01/15/2024 17:46:07 07/30/2024 US, duplex, carotid artery completed [facility] [address], [place], [address], 08/06/2024 16:09:56 Procedure Notes None recorded. Medical Equipment None Reported. Allergies Allergen ID Allergen Name Allergen Category Reaction Reaction Severity Criticality Documentation Date Start Date Code Code System Note Provider Name and Address Organization Details Recorded Time 572225 azithromy chio medicatio n Not available Not available Not available 01/15/2024 58664 RxNorm Not Available Not Available Not Available Medications Name Sig Start Date Stop Date Status Note LastModified by Organization Details LastModified Time verapamil ER (SR) 120 mg tablet,ex tended release TAKE 2 TABLETS BY MOUTH EVERY DAY active Not Available Not Available No t Available losartan 50 mg tablet take 1 tab po daily. (continu e 1 tab daily of verapami l). 2024 active Not Available Not Available Not Avai lable amoxicill in 500 mg capsule TAKE 1 [...] Not Available Not Available No t Available cephalexi n 500 mg capsule Take 1 capsule every 6 hours by oral route for 10 days. 2024 active Not Available Not Available Not Avai lable prednison e 50 mg tablet TAKE 1 TABLET BY MOUTH EVERY DAY FOR 5 DAYS 02/13 completed Not Available Not Available Not Available diclofena c sodium 75 mg tablet,de layed release TAKE 1 TABLET BY MOUTH TWICE DAILY 07/19 completed Not Available Not Available Not Available mupirocin 2 % topical ointment APPLY A SMALL AMOUNT TO THE AFFECTED AREA of lower leg BY TOPICAL ROUTE 3 TIMES PER DAY 2024 active Not Available Not Available Not Avai lable levofloxa chio 500 mg tablet TAKE 1 [...] and Address Organization Details Last Updated DateTime 170.18 cm 23.3 kg/m2 37936.4 1 g 99 % 99 % 96 /min 132 mm[Hg] 82 mm[Hg] Elieser Forbes MA [facility] 4 12:34:35 Date Recorded Body height Respiratory rate Body mass index (BMI) Body weight Oxygen saturation Oxygen saturation in Arterial blood by Pulse oximetry Heart rate Systolic blood pressure Diastolic blood pressure Provider Name and Address Organization Details Last Updated DateTime 4 170.18 cm 18 /min 23.2 kg/m2 43456.6 7 g 98 % 98 % 65 /min 142 mm[Hg] 80 mm[Hg] Elieser Forbes MA [facility] 4 13:59:28 Date Recorded Systolic blood pressure Diastolic blood pressure Provider Name and Address Organization Details Last Updated DateTime 01/15/2024 128 mm[Hg] 70 mm[Hg] WILIAM Rodríguez Attn: Accounting[address] [place], [address], [facility] 01/15/2024 14:13:51 Date Recorded Body height Body mass index (BMI) Body weight Respiratory rate Oxygen saturation Oxygen saturation in Arterial blood by Pulse oximetry Heart rate Systolic blood pressure Diastolic blood pressure Provider Name and Address Organization Details Last Updated DateTime 5 170.18 cm 22.4 kg/m2 39185.7 1 g 18 /min 100 % 100 % 71 /min 136 mm[Hg] 82 mm[Hg] Elieser Forbes MA [facility] 5 14:02:08 Social History Question Answer Notes LastModified by Organizat ion Details LastModified Time Tobacco Smoking Status Former Smoker Elieser Forbes MA null, [facility] 08/02/2023 12:31:17 Do You Have An Advance [...] You Had Close Contact With A Laboratory-confir [facility] COVID-19 While That Case Was Ill? No [...] Atrial Fibrillation N High Blood Pressure Y Thyroid Problems Y Kidney or Bladder Problems N Depression N COPD N Blood Clots N GI Problems N Skin Problems N Anemia N Heart Attack ([place]) N Diabetes N Anxiety Disorder N Muscle, Joint, or Bone Problems N Seizures/Epilepsy N Acid Reflux (GERD) N Cancer N Stroke N Allergies N Asthma Y High Cholesterol Y Hepatitis N Liver Disease N Headaches N Osteoporosis N Heart Failure N Gynecological History Statement/Question Response Menses Monthly N Current Control Method Other Obstetrics History GPAL:G 0 P 0 0 0 0 Past Encounters Encounter ID Performer Location Encounter Start Date Encounter Closed Date Diagnosis/Indication Diagnosis SNOMED-CT Code Diagnosis ICD10 Code Diagnosis Note [id number] WILIAM Rodríguez [facility] [address] [place] [address] 08/02/2023 12:24:08 08/02/2023 13:20:01 Benign essential hypertension 0360966 I10 stable on verapamil ER 120mg daily. Hypothyroidism 84860540 E03.9 stable on levothyrox ine 75mcg daily Asthma 869796329 J45.90 9 stable on breo and zyrtec Long-term drug therapy 918095945 Z79.899 labs to be faxed and then will call patient with results Acute constipation 68244 9006 K59.00 improved/r esolved. she does not want any colon testing. Acid reflux 920516163 K2 1.9 stable refill on PPI therapy. [id number] WILIAM Rodríguez [facility] [address] [place] [address] 01/15/2024 13:48:28 01/15/2024 14:30:38 Benign essential hypertension 4666215 I10 stable on verapamil ER 120mg daily. Hypothyroidism 31720461 E03.9 stable on levothyrox ine 75mcg daily, due for updated thyroid function panel Acid reflux 417764919 K2 1.9 stable refill on PPI therapy. Asthma 975079734 J45.90 9 stable on breo and zyrtec Acute constipation 48445 9006 K59.00 still improved/r esolved. she does not want any colon testing. Long-term drug therapy 620130525 Z79.899 Routine CBC, BMP and LFT ear due Hyperlipidemia 15628660 E78.5 Patient is not on any medication therapy per her decision. We will order a fasting lipid panel for updated evaluation Cough 74163749 R05.9 Refer for chest x-ray to rule out any underlying pneumonia and start prednisone 50 mg daily for 5 days Acute bronchitis 8586512 2 J20.9 Start Augmentin course as directed for 7 days [id number] WILIAM Rodríguez [facility] [place] [address] [place] [address] 07/15/2024 13:50:30 07/15/2024 16:07:05 Benign essential hypertension 6417425 I10 stable on verapamil ER 120mg daily. Hypothyroidism 08896919 E03.9 stable on levothyrox ine 75mcg daily, due for updated lab Acid reflux 549365358 K2 1.9 stable on PPI therapy. Asthma 246966696 J45.90 9 stable on breo and zyrtec Long-term drug therapy 151927672 Z79.899 All routine labs ordered including CBC, BMP and liver panel Hyperlipidemia 38352285 E78.5 Patient is not on any medication therapy per her decision. We will order a fasting lipid panel for updated evaluation Body mass index 20-24 - normal 190895499 Z68.22 BMI 22.4 Carotid bruit present 27 2108615 R09.89 Refer for carotid duplex bilaterall y for soft bruit noted bilaterall y Health Concerns Section Related Observation LastModified by Organization Detai ls LastModified Time None Recorded Concern Status LastModified by Organization Details LastModified Time None Recorded Advance Directives Directive Y: Payers Encounter Date Sequence Insurance Name Policy Number Policy Castillo Covered Member ID Castillo Member ID Guarantor Name 08/02/2023 1 [facility] (MEDICARE REPLACEMENT/A DVANTAGE - PPO) [id number] Tamar Solis [id number] Tamar Solis 01/15/2024 1 [facility] (MEDICARE REPLACEMENT/A DVANTAGE - PPO) [id number] Tamar Solis [id number] Tamar Solis 07/15/2024 1 [facility] (MEDICARE REPLACEMENT/A DVANTAGE - PPO) [id number] Tamar Solis [id number] Tamar Solis Notes Date Note Type Note Provider Name and Address Organization Details Recorded Time 08/02/19 24 text/htm l Asthma F/UReported bypatient.Notes:stable at this time on breo ellipta 100mcg.HypertensionReported bypatient.Notes:has been stable on verapamil ER 120mg daily.Reflux/GERDReported bypatient.Notes:stable on omeprazole 40mg daily.ThyroidReported bypatient.Notes:stable on levothyroxine 75mcg daily. labs are completed but not faxed to us at time of appt. WILIAM Rodríguez Attn: Accounting,[address] [place], [address], [facility] 08/14/2023 21:03:48 01/15/20 24 text/htm l Asthma F/UReported bypatient.Notes:stable at this time on breo ellipta 100mcg.HypertensionReported bypatient.Notes:has been stable on verapamil ER 120mg daily.Reflux/GERDReported bypatient.Notes:stable on omeprazole 40mg daily.ThyroidReported bypatient.Notes:stable on levothyroxine 75mcg daily. labs are completed but not faxed to us at time of appt.Upper Respiratory SymptomsReported bypatient.Location:chest Quality:productive cough;colored phlegm;congested;hacking cough Severity:moderate Duration:symptoms lasting over 2 weeks Context:no sick contacts; no foreign travel; non-smoker Modifying Factors:OTC medication Associated Symptoms:yellow sputum;wheezing;fatigue WILIAM Rodríguez Attn: Accounting,[address] [facility], [place], [address], [facility] 02/04/2024 09:07:27 07/16/19 25 text/htm l Asthma F/UReported bypatient.Notes:stable at this time on breo ellipta 100mcg. Her asthma has been doing well without any recent issuesHypertensionReported bypatient.Notes:has been stable on verapamil ER 120mg daily.Reflux/GERDReported bypatient.Notes:stable on omeprazole 40mg daily. No acute complaintsThyroidReported bypatient.Notes:stable on levothyroxine 75mcg daily. WILIAM Rodríguez Attn: Accounting,[address] [facility], [place], [address], [facility] 08/09/2024 13:52:05 OBGyn Episode No OBEpisode recorded.
--- OUTSIDE RECORDS SUMMARY | 2024-08-09 15:08 | XMS_ITS | Continuity of Care Document ---
Author Organization [facility] Address [address] [place] [address] [employer] [facility] [address] [place] [address] Phone Care Team Providers Care Sales Project Coordinator Name Role Phone Barbara Ballesteros Unavailable Unavailable Procedures Procedure Date Eye Exam Established Pt Advance Directives Directive Yes / No Effective Date File Name No Information Encounters Encounter Description Practice Location Reason(s) For Visit Diagnoses Date Provider Providers Copied on Encounter [facility], [address] [place] [address] [address], [place], [place], [id number], [place] tel:[phone] [facility] No Information 4-200 7 Lesli Jimenez. [address] [place] , [address], [place], [address], [place]. tel:[phone] Family History Family Member Type Diagnosis Age At Onset No Information Payers Payer name Insurance type Covered republican ID Authoriza tion(s) [place] [id number] Social History Type Description Quantity Date Captured [...]
[2024-08-09 15:10] VITALS: BP 141/52; PULSE 74; RESP 18; TEMP 36.4; O2SAT 100
== END 2024-08-09 15:28 | disposition home or self-care (01) ==
PROVIDERS: Emergency Provider Nurse Practitioner Family; PCP Physician Assistant
DX: S81.812A Laceration without foreign body, left lower leg, initial encounter (principal); L03.116 Cellulitis of left lower limb; W22.8XXA Striking against or struck by other objects, initial encounter
CPT/HCPCS: 87070; 87075; 87181; 87205; 99213; G0463

== ENCOUNTER 2024-08-14 15:18 | Outpatient (CLI) | payer MEDICARE, SELFPAY ==
--- NOTE | ~2024-08-14 | US_ITS ---
LEFT LOWER EXTREMITY VENOUS ULTRASOUND Ordering provider: Sho Love, PAAlena History: . LOCALIZED SWELLING OF LLE;R/O ANY DVT . Comparison: None. FINDINGS: --COMMON FEMORAL: Patent and free of thrombus. Normal compressibility, phasic flow and augmentation. --PROXIMAL SUPERFICIAL FEMORAL: Patent and free of thrombus. Normal compressibility, phasic flow and augmentation. --DISTAL SUPERFICIAL FEMORAL: Patent and free of thrombus. Normal compressibility, phasic flow and au gmentation. --POPLITEAL: Patent and free of thrombus. Normal compressibility, phasic flow and augmentation. --POSTERIOR TIBIAL: Patent and free of thrombus. Normal compressibility, phasic flow and augmentation . IMPRESSION: Negative left lower extremity venous US. No deep vein thrombosis. Reviewed, dictated and finalized at location A.
--- OUTSIDE RECORDS SUMMARY | 2024-08-14 15:39 | XMS_ITS | Data Portability ---
Author Organization [facility] [address] [place] [address] Care Team Providers Care Returned Telephone Equipment Appraiser Name Role Phone VIBHA CHEN Primary Care Provider Unavailab le Assessment No assessment recorded. Plan of Treatment Reminders Order Date Submit Date Provider Last Modified By Organization Details Last Modified Time Details Appointments ACUTE 15 2024 02:30P M WILIAM Rodríguez Not available Not available Not available NURSE ONLY 2024 11:00A M WILIAM Rodríguez Not available Not available Not available ANY 15 2024 01:00P M WILIAM Rodríguez Not available Not available Not available Lab CBC w/ auto diff 2024 025 regency [email or web address] [facility], [address], [place], [address], 08/12/2024 15:18:40 BMP, serum or plasma 2024 025 regency [email or web address] [facility], [address], [place], [address], 08/12/2024 15:18:40 hepatic function panel, serum 2024 025 regency [email or web address] [facility], [address], [place], [address], 08/12/2024 15:18:40 TSH + free T4, serum 2024 025 MELANIE [facility], [address], [place], [address], 08/07/2024 10:56:12 lipid panel, serum 2024 [email or web address], [address], [address], [place], [address], 08/12/2024 15:18:40 CBC w/ auto diff 2023 024 POTOSI [facility], [address], [address], [place], [address], 02/14/2024 10:33:10 BMP, serum or plasma 2023 024 [facility]OT[facility], [address], [address], [place], [address], 02/14/2024 10:33:10 hepatic function panel, serum 2023 024 [facility], [address], [address], [place], [address], 02/14/2024 10:33:10 TSH + free T4, serum 2023 024 [facility], [address], [address], [place], [address], 02/14/2024 10:33:09 lipid panel, serum 2023 024 POTOSI [facility], [address], [address], [place], [address], 02/14/2024 10:33:09 Referral None recorded. Procedures None recorded. Surgeries None recorded. Imaging US, duplex, carotid artery 2024 025 [facility], [address], [place], [address], 07/30/2024 17:20:52 XR, chest, 2 view 2023 024 [facility] [address], [address], [place], [address], 01/15/2024 17:28:43 Medication Orders prednison e 50 mg tablet 2023 024 [facility][id number], [address] [place] [address], [id number], 02/14/2024 16:02:29 amoxicill in 875 mg-potass ium clavulana te 125 mg tablet 2023 024 [email or web address] [facility] #18404, [address] [facility] [address] [place] [address], [id number], 02/14/2024 16:02:03 omeprazol e 40 mg capsule,d elayed release 2023 024 [email or web address] [facility] #64704, [address] [place] [address], [id number], 01/15/2024 13:55:40 Patient TargetsNo targets recorded. Patient [...] [#/volume] in blood by automated count absol sitka neutr ophil s Not Available Not Available 07/01/2024 17:43:16 07/23/19 24 07/24/2023 CBC W Auto Diffe renti al panel - Blood lymphocytes [#/volume] in blood by automated count absol sitka lymph ocyte s Not Available Not Available 07/01/2024 17:43:16 07/23/19 24 07/24/2023 CBC W Auto Diffe renti al panel - Blood monocytes [#/volume] in blood by automated count absol sitka monoc ytes Not Available Not Available 07/01/2024 17:43:16 07/23/19 24 07/24/2023 CBC W Auto Diffe renti al panel - Blood eosinophils [#/volume] in blood by automated count absol sitka eosin ophil s Not Available Not Available 07/01/2024 17:43:16 07/23/19 24 07/24/2023 CBC W Auto Diffe renti al panel - Blood basophils [#/volume] in blood by automated count absol sitka basop hils Not Available Not Available 07/01/2024 [...] 2000 panel - Serum or Plasm a bilirubin.in [...] Not Available 07/01/2024 17:43:15 07/23/19 24 07/24/2023 [facility] 1999 panel - Serum or Plasm a creatinine [mass/volume ] in serum or plasma creat inine Not Available Not Available 07/01/2024 17:43:15 07/23/19 24 07/24/2023 [facility] 1999 panel - Serum or Plasm a glomerular filtration rate/1.73 sq M.predicted [volume rate/area] in serum, plasma or blood by creatinine-b ased formula (CKD-epi 2020) eGFR Not Available Not Available 06/14 17:43:15 07/23/19 24 07/24/2023 [facility] 1999 panel - Serum or Plasm a urea nitrogen/cre atinine [mass ratio] in serum or plasma SEE NOTE: BUN/c reati nine ratio Not Available Not Available 07/01/2024 17:43:15 07/23/19 24 07/24/2023 [facility] 1999 panel - Serum or Plasm a sodium [moles/volum e] in serum or plasma sodiu m Not Available Not Available 07/01/2024 17:43:15 07/23/19 24 07/24/2023 [facility] 1999 panel - Serum or Plasm a potassium [moles/volum e] in serum or plasma potas sium Not Available Not Available 07/01/2024 17:43:15 07/23/19 24 07/24/2023 [facility] 1999 panel - Serum or Plasm a chloride [moles/volum e] in serum or plasma chlor lexus Not Available Not Available 07/01/2024 17:43:15 07/23/19 24 07/24/2023 [facility] 1999 panel - Serum or Plasm a carbon dioxide, total [moles/volum e] in serum or plasma carbo n dioxi de Not Available Not Available 07/01/2024 17:43:15 07/23/19 24 07/24/2023 [facility] 1999 panel - Serum or Plasm [...] 2 view No observ ation record ed. [facility] [address], [place], [address], 01/15/2024 17:46:07 07/31/19 25 07/30/2024 US, duple x, carot id arter y No observ ation record ed. [facility] [address], [place], [address], 08/06/2024 16:09:56 Result Notes None recorded. Problems Name Problem SNOMED Code Status Onset Date Resolution Date Notes Provider Name and Address Organization Details Recorded Time Long-term drug therapy Active 2023 WILIAM Rodríguez Attn: Najma elias,[address] [facility], [place], [address], [place] [facility] 4 14:16:47 Hyperlipidemia 03725569 Active 2023 WILIAM Rodríguez Attn: Najma elias,[address] [facility], [place], [address], [place] [facility] 4 14:16:49 Asthma 805316959 Active 2023 WILIAM Rodríguez Attn: Najma elias,[address] [facility], [place], [address], [place] [facility] 4 14:16:50 Acid reflux 692647758 Active 2023 WILIAM Rodríguez Attn: Najma elias,[address] [facility], [place], [address], [place] [facility] 4 14:16:52 Hypothyroidism 54301486 Active 2023 WILIAM Rodríguez Attn: Najma elias,[address] [facility], [place], [address], [place] [facility] 4 14:16:54 Benign essential hypertension 8703504 Active 2023 WILIAM Rodríguez Attn: Najma elias,[address] [facility], [place], [address], [facility] 4 14:16:55 Body mass index 20-24 - normal 624823166 Active 2024 Elieser Forbes MA null, [facility] 5 14:00:53 Problem Notes None recorded. Procedures Surgical History None recorded. Imaging Results Imaging Date Name Status LastModified by Organiz ation Details LastModified Time 01/15/2024 XR, chest, 2 view completed [facility] [address], [place], [address], 01/15/2024 17:46:07 07/30/2024 US, duplex, carotid artery completed [facility] [address], [place], [address], 08/06/2024 16:09:56 Procedure Notes None recorded. Medical Equipment None Reported. Allergies Allergen ID Allergen Name Allergen Category Reaction Reaction Severity Criticality Documentation Date Start Date Code Code System Note Provider Name and Address Organization Details Recorded Time 851800 azithromy chio medicatio n Not available Not available Not available 01/15/2024 97743 RxNorm WILIAM Rodríguez Attn: Najma elias,[address] [facility], [place], [address], [facility] 4 14:19:47 Medications Name Sig Start Date Stop Date Status Note LastModified by Organization Details LastModified Time verapamil ER (SR) 120 mg tablet,ex tended release TAKE 2 TABLETS BY MOUTH EVERY DAY active Not Available Not Available No t Available losartan 50 mg tablet TAKE 1 TABLET BY MOUTH DAILY. CONTINUE 1 TABLET DAILY OF VERAPAMI L active Not Available Not Available No t Available amoxicill in 500 mg capsule TAKE 1 CAPSULE BY MOUTH EVERY 8 HOURS FOR 7 DAYS 07/15 completed Not Available Not Available Not Available cetirizin e 10 mg tablet TAKE 1 TABLET BY MOUTH DAILY NEEDED active allergy Not Available Not Available No t Available sulfameth oxazole 400 mg-trimet hoprim 80 mg tablet Take 2 tablets every 12 hours by oral route for 10 days. active Not Available Not Available No [...] Not Available Not Available No t Available Silvadene 1 % topical cream APPLY A thick layer to the left leg wound TOPICAL ROUTE 2 TIMES PER DAY 2024 active Not Available Not Available Not Avai lable cephalexi n 500 mg capsule TAKE 1 CAPSULE BY MOUTH EVERY 6 HOURS FOR 10 DAYS active Not Available Not Available No t Available prednison e 50 mg tablet TAKE 1 TABLET BY MOUTH EVERY DAY FOR 5 DAYS 02/13 completed Not Available Not Available Not Available diclofena c sodium 75 mg tablet,de layed release TAKE 1 TABLET BY MOUTH TWICE DAILY 07/19 completed Not Available Not Available Not Available mupirocin 2 % topical ointment APLLY A PEA SIZED AMOUNT TO AFFECTED AREA OF LOWER LEG BY TOPICAL ROUTE THREE TIMES DAILY active Not Available Not Available No t Available levofloxa chio 500 mg tablet TAKE [...] Updated DateTime 4 170.18 cm 23.3 kg/m2 61871.4 1 g 99 % 99 % 96 /min 132 mm[Hg] 82 mm[Hg] Elieser Forbes MA [facility] 4 12:34:35 Date Recorded Body height Respiratory rate Body mass index (BMI) Body weight Oxygen saturation Oxygen saturation in Arterial blood by Pulse oximetry Heart rate Systolic blood pressure Diastolic blood pressure Provider Name and Address Organization Details Last Updated DateTime 4 170.18 cm 18 /min 23.2 kg/m2 63969.6 7 g 98 % 98 % 65 /min 142 mm[Hg] 80 mm[Hg] Elieser Forbes MA [facility] 4 13:59:28 Date Recorded Systolic blood pressure Diastolic blood pressure Provider Name and Address Organization Details Last Updated DateTime 01/15/2024 128 mm[Hg] 70 mm[Hg] WILIAM Rodríguez Attn: [employer]ing,[address] [place], [address], [facility] 01/15/2024 14:13:51 Date Recorded Body height Body mass index (BMI) Body weight Respiratory rate Oxygen saturation Oxygen saturation in Arterial blood by Pulse oximetry Heart rate Systolic blood pressure Diastolic blood pressure Provider Name and Address Organization Details Last Updated DateTime 5 170.18 cm 22.4 kg/m2 95376.7 1 g 18 /min 100 % 100 % 71 /min 136 mm[Hg] 82 mm[Hg] Elieser Forbes MA [facility] 5 14:02:08 Date Recorded Body height Body mass index (BMI) Body weight Oxygen saturation Oxygen saturation in Arterial blood by Pulse oximetry Heart rate Systolic blood pressure Diastolic blood pressure Provider Name and Address Organization Details Last Updated DateTime 5 170.18 cm 22.6 kg/m2 29991.3 g 100 % 100 % 63 /min 138 mm[Hg] 82 mm[Hg] Elieser Forbes [place] 15:31:04 Date Recorded Respiratory rate Provider Name a nd Address Organization Details Last Updated DateTime 08/14/2024 16 /min WILIAM Rodríguez Attn: Accounting,[address] [facility], [place], [address], [place] 08/14/2024 15:54:29 Social History Question Answer Notes LastModified by Organizat ion Details LastModified Time Tobacco Smoking Status Former Smoker Elieser Forbes MA null, [facility] 08/02/2023 12:31:17 Do You Have An [...] Date Of Your Most Recent Tobacco Screening? 08/14/2024 Information not available 08/14/2024 What Is Your Current Pack Years? [email or web address] salmeron Information not available 08/02/2023 Do You Use [...] What Date Was Tobacco Cessation Counseling Provided? 08/14/2024 Information not available 08/14/2024 Do You Or Have You Ever Used [...] Skin Problems N Anemia N Heart Attack (DE) N Diabetes N Anxiety Disorder N Muscle, [...] SNOMED-CT Code Diagnosis ICD10 Code Diagnosis Note [id number] Abilio Morrow MD [facility] [address] [email or web address] [address] 08/02/2023 12:24:08 08/02/2023 13:20:01 Benign essential hypertension 9148010 I10 stable on verapamil ER 120mg daily. Hypothyroidism 42888980 E03.9 stable on levothyrox ine 75mcg daily Asthma 034754743 J45.90 9 stable on breo and zyrtec Long-term drug therapy 758443638 Z79.899 labs to be faxed and then will call patient with results Acute constipation 9006 K59.00 improved/r esolved. she does not want any colon testing. Acid reflux 925775512 K2 1.9 stable refill on PPI therapy. [id number] Abilio Morrow MD [facility] [address] [email or web address] [address] 01/15/2024 13:48:28 01/15/2024 14:30:38 Benign essential hypertension 6846101 I10 stable on verapamil ER 120mg daily. Hypothyroidism 81588702 E03.9 stable on levothyrox ine 75mcg daily, due for updated thyroid function panel Acid reflux 049688394 K2 1.9 stable refill on PPI therapy. Asthma 401566672 J45.90 9 stable on breo and zyrtec Acute constipation 9006 K59.00 still improved/r esolved. she does not want any colon testing. Long-term drug therapy 139660171 Z79.899 Routine CBC, BMP and LFT ear due Hyperlipidemia 58786012 E78.5 Patient is not on any medication therapy per her decision. We will order a fasting lipid panel for updated evaluation Cough 44949308 R05.9 Refer for chest x-ray to rule out any underlying pneumonia and start prednisone 50 mg daily for 5 days Acute bronchitis 2596784 2 J20.9 Start Augmentin course as directed for 7 days [id number] Abilio Morrow MD [facility] [address] [email or web address] [address] 07/15/2024 13:50:30 07/15/2024 16:07:05 Benign essential hypertension 2856119 I10 stable on verapamil ER 120mg daily. Hypothyroidism 93005107 E03.9 stable on levothyrox ine 75mcg daily, due for updated lab Acid reflux 234930957 K2 1.9 stable on PPI therapy. Asthma 335913899 J45.90 9 stable on breo and zyrtec Long-term drug therapy 537284483 Z79.899 All routine labs ordered including CBC, BMP and liver panel Hyperlipidemia 75980814 E78.5 Patient is not on any medication therapy per her decision. We will order a fasting lipid panel for updated evaluation Body mass index 20-24 - normal 081060310 Z68.22 BMI 22.4 Carotid bruit present 27 1930070 R09.89 Refer for carotid duplex bilaterall y for soft bruit noted bilaterall y [id number] Abilio Morrow MD [facility] [place] [address] [place] [address] 08/14/2024 15:21:09 08/14/2024 16:00:27 Localized swelling of left lower leg 1988805676 9840759 R22.42 Laceration of lower limb 301397362 S81.819A Health Concerns Section Related Observation LastModified by Organization Detai ls LastModified Time None Recorded Concern Status LastModified by Organization Details LastModified Time None Recorded Advance Directives Directive Y: Payers Encounter Date Sequence Insurance Name Policy Number Policy Castillo Covered Member ID Castillo Member ID Guarantor Name 08/02/2023 1 [facility] (MEDICARE REPLACEMENT/A DVANTAGE - PPO) [id number] Tamar Sommerteto [id number] Tamar Sommerteto 01/15/2024 1 [facility] (MEDICARE REPLACEMENT/A DVANTAGE - PPO) [id number] Tamar Veteto [id number] Tamar Veteto 07/15/2024 1 [facility] (MEDICARE REPLACEMENT/A DVANTAGE - PPO) [id number] Tamar Sommerteto [id number] Tamar Veteto Notes Date Note Type Note Provider Name and Address Organization Details Recorded Time 08/02/19 24 text/htm l Asthma F/UReported bypatient.Notes:stable at this time on breo ellipta 100mcg.HypertensionReported bypatient.Notes:has been stable on verapamil ER 120mg daily.Reflux/GERDReported bypatient.Notes:stable on omeprazole 40mg daily.ThyroidReported bypatient.Notes:stable on levothyroxine 75mcg daily. labs are completed but not faxed to us at time of appt. WILIAM Rodríguez Attn: Accounting,[address] [facility], [place], [address], [place] [facility] 08/14/2023 21:03:48 01/15/20 24 text/htm l Asthma [...] Symptoms:yellow sputum;wheezing;fatigue WILIAM Rodríguez Attn: Accounting,[address] [facility], [place], [address], [place] [facility] 02/04/2024 09:07:27 07/16/19 25 text/htm l Asthma F/UReported bypatient.Notes:stable at this time on breo ellipta 100mcg. Her asthma has been doing well without any recent issuesHypertensionReported bypatient.Notes:has been stable on verapamil ER 120mg daily.Reflux/GERDReported bypatient.Notes:stable on omeprazole 40mg daily. No acute complaintsThyroidReported bypatient.Notes:stable on levothyroxine 75mcg daily. WILIAM Rodríguez Attn: Accounting,[address] [facility], [place], [address], [place] [facility] 08/09/2024 13:52:05 OBGyn Episode No OBEpisode recorded.
--- OUTSIDE RECORDS SUMMARY | 2024-08-14 15:39 | XMS_ITS | Continuity of Care Document ---
Author Organization [facility] Address [address] [place] [address] [address] [place] [address] Phone Care Team Providers Care Racing Mechanic Name Role Phone Barbara Ballesteros Unavailable Unavailable Procedures Procedure Date Eye Exam Established Pt Advance Directives Directive Yes / No Effective Date File Name No Information Encounters Encounter Description Practice Location Reason(s) For Visit Diagnoses Date Provider Providers Copied on Encounter [facility], [address], [place], [place], [id number], [place] tel:[phone] [facility] No Information 4-[address] Lesli Jimenez. [address] [facility] , [address], [place], [address], [place]. tel:[phone] Family History Family Member Type Diagnosis Age At Onset No Information Payers Payer name Insurance type Covered democrat ID Authoriza tion(s) [place] [id number] Social History Type Description Quantity Date Captured [...]
--- OUTSIDE RECORDS SUMMARY | 2024-08-14 15:39 | XMS_ITS | Data Portability ---
Author Organization [facility], Main Office Address [address] [place] [address] Care Team Providers Care Band Cutter Name Role Phone VIBHA CHEN Primary Care Provider [phone] VIBHA CHEN Referring Provider [phone] Assessment Encounter Date Assessment Date Assessment [...] deformity grinding crepitus and pain. X-rays show vaoy-vj-juhh arthritis. She will continue with her exercises. [...] Lab hepatic function panel, serum 2022 024 [facility], [address], [place], [address], 4 03:50:19 BMP, serum or plasma 2022 024 [facility], [address], [place], [address], 4 03:50:18 CBC w/ auto diff 2022 024 [facility], [place], [address], 4 03:50:20 TSH + free T4, serum 2022 024 [facility], [address], [place], [address], 4 03:50:15 lipid panel, serum 2022 024 [facility], [address], [place], [address], 4 03:50:17 Referral None recorded. Procedures injection/a spiration joint/bursa (PROC) - in office procedure, administere d by provider 2022 023 [email or web address] In-Office Order, Internal Use Only DO Not Attach Compendium DO Not Attach Compendium, Do Not Delete/merge, [id number] 3 13:40:46 Surgeries None recorded. Imaging None recorded. Medication Orders Kenalog 10 mg/mL suspension for injection 2022 [email or web address] [id number], [address], [id number], 3 15:12:11 ropivacaine (PF) 5 mg/mL (0.5 %) injection solution 2022 023 [email or web address] 4 [facility] #[id number], [address], [id number], 3 15:12:24 diclofenac sodium 75 mg tablet,miri yed release 2022 023 [email or web address] 4 [facility] #[id number], [address], [id number], 3 11:25:38 Patient TargetsNo targets recorded. Patient InstructionsNo instructions recorded. Reason for Referral None Reported. Results Created Date Observation Date Name Description Value Unit Range Abnormal Flag Note LastModifiedBy Organization Detail LastModifiedTime 04/27/19 23 04/28/2022 URINA LYSIS , COMPL ETE color yellow yellow normal Not Available [address], [address], 04/28/2022 13:42:43 04/27/19 23 04/28/2022 URINA LYSIS , COMPL ETE appearance clear clear normal Not Available [address], [address], 04/28/2022 13:42:43 04/27/19 23 04/28/2022 URINA LYSIS , COMPL ETE specific gravity 1.007 1.001- 1.035 normal Not Available [address], [address], 04/28/2022 13:42:43 04/27/19 23 04/28/2022 URINA LYSIS , COMPL ETE pH 7.5 5.0-8. 0 normal Not Available [address], [address], 04/28/2022 13:42:43 04/27/19 23 04/28/2022 URINA LYSIS , COMPL ETE glucose negati ve negati ve normal Not Available [address], [address], 04/28/2022 13:42:43 04/27/19 23 04/28/2022 URINA LYSIS , COMPL ETE bilirubin negati ve negati ve normal Not Available [address], [address], 04/28/2022 13:42:43 04/27/19 23 04/28/2022 URINA LYSIS , COMPL ETE ketones negati ve negati ve normal Not Available [address], [address], 04/28/2022 13:42:43 04/27/19 23 04/28/2022 URINA LYSIS , COMPL ETE occult blood negati ve negati ve normal Not Available [address], [address], 04/28/2022 13:42:43 04/27/19 23 04/28/2022 URINA LYSIS , COMPL ETE protein negati ve negati ve normal Not Available [address], [address], 04/28/2022 13:42:43 04/27/19 23 04/28/2022 URINA LYSIS , COMPL ETE nitrite negati ve negati ve normal Not Available [address], [address], 04/28/2022 13:42:43 04/27/19 23 04/28/2022 URINA LYSIS , COMPL ETE leukocyte esterase negati ve negati ve normal Not Available [address], [address], 04/28/2022 13:42:43 04/27/19 23 04/28/2022 URINA LYSIS , COMPL ETE WBC none seen /hpf < or = 5 normal Not Available [address], [address], 04/28/2022 13:42:43 04/27/19 23 04/28/2022 URINA LYSIS , COMPL ETE RBC none seen /hpf < or = 2 normal Not Available [facility] [address], [address], 04/28/2022 13:42:43 04/27/1904/28/2022 URINA LYSIS , COMPL ETE squamous epithelial cells none seen /hpf < or = 5 normal Not Available [address], [address], 04/28/2022 13:42:43 04/27/19 23 04/28/2022 URINA LYSIS , COMPL ETE bacteria none seen /hpf none seen normal Not Available [address], [address], 04/28/2022 13:42:43 04/27/19 23 04/28/2022 URINA LYSIS , COMPL ETE hyaline cast none seen /lpf none seen normal Not Available [address], [address], 04/28/2022 13:42:43 04/27/19 23 04/28/2022 CBC (INCL UDES DIFF/ PLT) hemoglobin 12.3 g/dL 11.7-1 5.5 normal Not Available [address], [address], 04/28/2022 13:42:42 04/27/19 23 04/28/2022 CBC (INCL UDES DIFF/ PLT) white blood cell count 4.3 thous and/u L 3.8-10 .8 normal Not Available [address], [address], 04/28/2022 13:42:42 04/27/19 23 04/28/2022 CBC (INCL UDES DIFF/ PLT) red blood cell count 4.07 serge on/uL 3.80-5 .10 normal Not Available [address], [address], 04/28/2022 13:42:42 04/27/19 23 04/28/2022 CBC (INCL UDES DIFF/ PLT) hematocrit 37.8 % 35.0-4 5.0 normal Not Available [address], [address], 04/28/2022 13:42:42 04/27/19 23 04/28/2022 CBC (INCL UDES DIFF/ PLT) MCV 92.9 fL 80.0-1 00.0 normal Not Available [address] [place], [address], 04/28/2022 13:42:42 04/27/19 23 04/28/2022 CBC (INCL UDES DIFF/ PLT) MCH 30.2 pg 27.0-3 3.0 normal Not Available [facility] [address], [address], 04/28/2022 13:42:42 04/27/19 23 04/28/2022 CBC (INCL UDES DIFF/ PLT) MCHC 32.5 g/dL 32.0-3 6.0 normal Not Available [facility] [address], [address], 04/28/2022 13:42:42 04/27/19 23 04/28/2022 CBC (INCL UDES DIFF/ PLT) RDW 12.7 % 11.0-1 5.0 normal Not Available [facility] [address], [address], 04/28/2022 13:42:42 04/27/19 23 04/28/2022 CBC (INCL UDES DIFF/ PLT) platelet count 207 thous and/u L 140-40 0 normal Not Available [address], [address], 04/28/2022 13:42:42 04/27/19 23 04/28/2022 CBC (INCL UDES DIFF/ PLT) MPV 10.3 fL 7.5-12 .5 normal Not Available [facility] [address], [address], 04/28/2022 13:42:42 04/27/19 23 04/28/2022 CBC (INCL UDES DIFF/ PLT) absolute neutrophils 2335 cells /uL 1500-7 800 normal Not Available [facility] [address], [address], 04/28/2022 13:42:42 04/27/19 23 04/28/2022 CBC (INCL UDES DIFF/ PLT) absolute lymphocytes 1367 cells /uL 850-39 00 normal Not Available [address], [address], 04/28/2022 13:42:42 04/27/19 23 04/28/2022 CBC (INCL UDES DIFF/ PLT) absolute monocytes 318 cells /uL 200-95 0 normal Not Available [address], [address], 04/28/2022 13:42:42 04/27/19 23 04/28/2022 CBC (INCL UDES DIFF/ PLT) absolute eosinophils 189 cells /uL 15-500 normal Not Available [facility] [address], [address], 04/28/2022 13:42:42 04/27/19 23 04/28/2022 CBC (INCL UDES DIFF/ PLT) absolute basophils 90 cells /uL 0-200 normal Not Available [facility] [address], [address], 04/28/2022 13:42:42 04/27/19 23 04/28/2022 CBC (INCL UDES DIFF/ PLT) neutrophils 54.3 % normal Not Available [facility] [address], [address], 04/28/2022 13:42:42 04/27/19 23 04/28/2022 CBC (INCL UDES DIFF/ PLT) lymphocytes 31.8 % normal Not Available [facility] [address], [address], 04/28/2022 13:42:42 04/27/19 23 04/28/2022 CBC (INCL UDES DIFF/ PLT) monocytes 7.4 % normal Not Available [facility] [address], [address], 04/28/2022 13:42:42 04/27/19 23 04/28/2022 CBC (INCL UDES DIFF/ PLT) eosinophils 4.4 % normal Not Available [address], [address], 04/28/2022 13:42:42 04/27/19 23 04/28/2022 CBC (INCL UDES DIFF/ PLT) basophils 2.1 % normal Not Available [facility] [address], [address], 04/28/2022 13:42:42 04/27/19 23 04/28/2022 B TYPE [...] ol. 2002; 40:97 6-982 . Not Available [address], [address], 04/28/2022 13:42:41 04/27/19 23 04/28/2022 HEPAT IC FUNCT ION PANEL protein, total 5.9 g/dL 6.1-8. 1 low Not Available [address], [address], 04/28/2022 13:42:40 04/27/1904/28/2022 HEPAT IC FUNCT ION PANEL albumin 4.0 g/dL 3.6-5. 1 normal Not Available [facility] [address], [address], 04/28/2022 13:42:40 04/27/19 23 04/28/2022 HEPAT IC FUNCT ION PANEL globulin 1.9 g/dL_ (calc ) 1.9-3. 7 normal Not Available [facility] [address], [address], 04/28/2022 13:42:40 04/27/19 23 04/28/2022 HEPAT IC FUNCT ION PANEL albumin/glob ulin ratio 2.1 (calc ) 1.0-2. 5 normal Not Available [address] [address] [place], [address], 04/28/2022 13:42:40 04/27/19 23 04/28/2022 HEPAT IC FUNCT ION PANEL bilirubin, total 0.6 mg/dL 0.2-1. 2 normal Not Available [address] [address] [place], [address], 04/28/2022 13:42:40 04/27/1904/28/2022 HEPAT IC FUNCT ION PANEL bilirubin, direct 0.1 mg/dL < or = 0.2 normal Not Available [address], [address], 04/28/2022 13:42:40 04/27/19 23 04/28/2022 HEPAT IC FUNCT ION PANEL bilirubin, indirect 0.5 mg/dL _(marysol c) 0.2-1. 2 normal Not Available [address], [address], 04/28/2022 13:42:40 04/27/19 23 04/28/2022 HEPAT IC FUNCT ION PANEL alkaline phosphatase 87 U/L 37-153 normal Not Available [address] [address] [place], [address], 04/28/2022 13:42:40 04/27/19 23 04/28/2022 HEPAT IC FUNCT ION PANEL AST 15 U/L 10-35 normal Not Available [address], [address], 04/28/2022 13:42:40 04/27/19 23 04/28/2022 HEPAT IC FUNCT ION PANEL ALT 13 U/L 6-29 normal Not Available [address] [place], [address], 04/28/2022 13:42:40 04/27/19 23 04/28/2022 BASIC METAB OLIC PANEL glucose 87 mg/dL 65-99 normal Fasti ng refer ence inter otoniel Not Available [address], [address], 04/28/2022 13:42:39 04/27/19 23 04/28/2022 BASIC METAB OLIC PANEL urea nitrogen (BUN) 16 mg/dL 7-25 normal Not Available [facility] [address], [address], 04/28/2022 13:42:39 04/27/1904/28/2022 BASIC METAB OLIC PANEL creatinine 0.68 mg/dL 0.60-0 .95 normal Not Available [address], [address], 04/28/2022 13:42:39 04/27/19 23 04/28/2022 BASIC METAB OLIC PANEL eGFR 87 mL/mi n/1.7 3m2 > or = 60 normal The eGFR is based on the CKD-E PI 2020 equat ion. To calcu late the new eGFR from a previ ous Creat inine or Cysta tin C resul t, go to https ://stella kramer.guadalupe esposito/jesica lyons s/ kdoqi /gfr% 5Fcal culat or Not Available [address], [address], 04/28/2022 13:42:39 04/27/1904/28/2022 BASIC METAB OLIC PANEL BUN/creatini ne ratio not applic able (calc ) 6-22 Not Available [address], [address], 04/28/2022 13:42:39 04/27/19 23 04/28/2022 BASIC METAB OLIC PANEL sodium 145 mmol/ L 135-14 6 normal Not Available [address], [address], 04/28/2022 13:42:39 04/27/19 23 04/28/2022 BASIC METAB OLIC PANEL potassium 4.6 mmol/ L 3.5-5. 3 normal Not Available [address], [address], 04/28/2022 13:42:39 04/27/19 23 04/28/2022 BASIC METAB OLIC PANEL chloride 108 mmol/ L 98-110 normal Not Available [address], [address], 04/28/2022 13:42:39 04/27/19 23 04/28/2022 BASIC METAB OLIC PANEL carbon dioxide 29 mmol/ L 20-32 normal Not Available [address], [address], 04/28/2022 13:42:39 04/27/19 23 04/28/2022 BASIC METAB OLIC PANEL calcium 8.9 mg/dL 8.6-10 .4 normal Not Available [address], [address], 04/28/2022 13:42:39 04/27/19 23 04/28/2022 LIPID PANEL WITH RATIO S triglyceride s 122 mg/dL <150 normal Not Available [address], [address], 04/28/2022 13:42:38 04/27/19 23 04/28/2022 LIPID PANEL WITH RATIO S cholesterol, total 231 mg/dL <200 high Not Available [address], [address], 04/28/2022 13:42:38 04/27/19 23 04/28/2022 LIPID PANEL WITH RATIO S HDL cholesterol 68 mg/dL > or = 50 normal Not Available [address], [address], 04/28/2022 13:42:38 04/27/1904/28/2022 LIPID PANEL WITH RATIO [...] 2061- 2068 (http ://ed ucati on.Qu Denise Astrid. com/f aq/FA Q164) Not Available [address], [address], 04/28/2022 13:42:38 04/27/1904/28/2022 LIPID PANEL WITH RATIO S chol/HDLC ratio 3.4 (calc ) <5.0 normal Not Available [address], [address], 04/28/2022 13:42:38 04/27/1904/28/2022 LIPID PANEL WITH RATIO S LDL/HDL ratio 2.0 (calc ) Below avera ge Risk: <2.34 Wells ge Risk: 2.35- 4.12 Moder ate Risk: 4.13- 5.56 High Risk: >5.57 Not Available [address], [address], 04/28/2022 13:42:38 04/27/19 23 04/28/2022 LIPID PANEL WITH RATIO S non HDL cholesterol 163 mg/dL _(marysol c) <130 high For patie nts with diabe lorne plus 1 major ASCVD risk facto r, treat ing to a non-H DL-C goal of <100 mg/dL (LDL- C of <70 mg/dL ) is mikey waller. Not Available [address] [address] [place], [address], 04/28/2022 13:42:38 04/27/19 23 04/28/2022 TSH+F REE T4 TSH 2.60 mIU/L 0.40-4 .50 normal Not Available [facility] [place] [address] [place], [address], 04/28/2022 13:42:38 04/27/19 23 04/28/2022 TSH+F REE T4 T4, free 1.1 NG/dL 0.8-1. 8 normal Not Available [facility] [address] [place], [address], 04/28/2022 13:42:38 07/23/19 24 07/24/2023 TSH+F REE T4 TSH 2.83 mIU/L 0.40-4 .50 normal Not Available [address], [address], 07/24/2023 03:50:15 07/23/19 24 07/24/2023 TSH+F REE T4 T4, free 1.0 NG/dL 0.8-1. 8 normal Not Available [facility] [address] [place], [address], 07/24/2023 03:50:15 07/23/19 24 07/24/2023 LIPID PANEL WITH RATIO S cholesterol, total 242 mg/dL <200 high Not Available [address], [address], 07/24/2023 03:50:17 07/23/19 24 07/24/2023 LIPID PANEL WITH RATIO S HDL cholesterol 68 mg/dL > or = 50 normal Not Available [facility] [address], [place], [address], 07/24/2023 03:50:17 07/23/19 24 07/24/2023 LIPID PANEL WITH RATIO S triglyceride s 125 mg/dL <150 normal Not Available [address], [address], 07/24/2023 03:50:17 07/23/19 24 07/24/2023 LIPID PANEL [...] 2061- 2068 (http ://ed ucati on.Qu Denise Astrid. com/f aq/FA Q164) Not Available [address], [address], 07/24/2023 03:50:17 07/23/19 24 07/24/2023 LIPID PANEL WITH RATIO S chol/HDLC ratio 3.6 (calc ) <5.0 normal Not Available [address], [address], 07/24/2023 03:50:17 07/23/19 24 07/24/2023 LIPID PANEL WITH RATIO S LDL/HDL ratio 2.2 (calc ) Below avera ge Risk: <2.34 Wells ge Risk: 2.35- 4.12 Moder ate Risk: 4.13- 5.56 High Risk: >5.57 Not Available [address], [address], 07/24/2023 03:50:17 07/23/19 24 07/24/2023 LIPID PANEL WITH RATIO S non HDL cholesterol 174 mg/dL _(marysol c) <130 high For patie nts with diabe lorne plus 1 major ASCVD risk facto r, treat ing to a non-H DL-C goal of <100 mg/dL (LDL- C of <70 mg/dL ) is consi dered a thera peuti c optio n. Not Available [address] [address] [place], [address], 07/24/2023 03:50:17 07/23/19 24 07/24/2023 BASIC METAB OLIC PANEL glucose 83 mg/dL 65-99 normal Fasti ng refer ence inter otoniel Not Available [address] [address] [place], [address], 07/24/2023 03:50:18 07/23/19 24 07/24/2023 BASIC METAB OLIC PANEL urea nitrogen (BUN) 23 mg/dL 7-25 normal Not Available [address] [place], [address], 07/24/2023 03:50:18 07/23/19 24 07/24/2023 BASIC METAB OLIC PANEL creatinine 0.77 mg/dL 0.60-0 .95 normal Not Available [address] [place], [address], 07/24/2023 03:50:18 07/23/19 24 07/24/2023 BASIC METAB OLIC PANEL eGFR 76 mL/mi n/1.7 3m2 > or = 60 normal Not Available [address], [address], 07/24/2023 03:50:18 07/23/19 24 07/24/2023 BASIC METAB OLIC PANEL BUN/creatini ne ratio SEE NOTE: (calc ) 6-22 Not Repor yuniel: BUN and Creat inine are withi n refer ence range . Not Available [facility] [address], [address], 07/24/2023 03:50:18 07/23/19 24 07/24/2023 BASIC METAB OLIC PANEL sodium 142 mmol/ L 135-14 6 normal Not Available [address], [address], 07/24/2023 03:50:18 07/23/19 24 07/24/2023 BASIC METAB OLIC PANEL potassium 4.1 mmol/ L 3.5-5. 3 normal Not Available [facility] [address], [address], 07/24/2023 03:50:18 07/23/19 24 07/24/2023 BASIC METAB OLIC PANEL chloride 108 mmol/ L 98-110 normal Not Available [address], [address], 07/24/2023 03:50:18 07/23/19 24 07/24/2023 BASIC METAB OLIC PANEL carbon dioxide 29 mmol/ L 20-32 normal Not Available [address], [address], 07/24/2023 03:50:18 07/23/19 24 07/24/2023 BASIC METAB OLIC PANEL calcium 8.3 mg/dL 8.6-10 .4 low Not Available [address], [address], 07/24/2023 03:50:18 07/23/19 24 07/24/2023 HEPAT IC FUNCT ION PANEL protein, total 5.5 g/dL 6.1-8. 1 low Not Available [address], [address], 07/24/2023 03:50:19 07/23/19 24 07/24/2023 HEPAT IC FUNCT ION PANEL albumin 3.7 g/dL 3.6-5. 1 normal Not Available [address] [address] [place], [address], 07/24/2023 03:50:19 07/23/19 24 07/24/2023 HEPAT IC FUNCT ION PANEL globulin 1.8 g/dL_ (calc ) 1.9-3. 7 low Not Available [address] [address] [place], [address], 07/24/2023 03:50:19 07/23/19 24 07/24/2023 HEPAT IC FUNCT ION PANEL albumin/glob ulin ratio 2.1 (calc ) 1.0-2. 5 normal Not Available [address], [address], 07/24/2023 03:50:19 07/23/19 24 07/24/2023 HEPAT IC FUNCT ION PANEL bilirubin, total 0.4 mg/dL 0.2-1. 2 normal Not Available [address], [address], 07/24/2023 03:50:19 07/23/19 24 07/24/2023 HEPAT IC FUNCT ION PANEL bilirubin, direct 0.1 mg/dL < or = 0.2 normal Not Available [address], [address], 07/24/2023 03:50:19 07/23/19 24 07/24/2023 HEPAT IC FUNCT ION PANEL bilirubin, indirect 0.3 mg/dL _(marysol c) 0.2-1. 2 normal Not Available [address], [address], 07/24/2023 03:50:19 07/23/19 24 07/24/2023 HEPAT IC FUNCT ION PANEL alkaline phosphatase 96 U/L 37-153 normal Not Available [facility] [place] [employer] [address], [address], 07/24/2023 03:50:19 07/23/19 24 07/24/2023 HEPAT IC FUNCT ION PANEL AST 12 U/L 10-35 normal Not Available [address], [address], 07/24/2023 03:50:19 07/23/19 24 07/24/2023 HEPAT IC FUNCT ION PANEL ALT 13 U/L 6-29 normal Not Available [address], [address], 07/24/2023 03:50:19 07/23/19 24 07/24/2023 CBC (INCL UDES DIFF/ PLT) white blood cell count 4.7 thous and/u L 3.8-10 .8 normal Not Available [address], [address], 07/24/2023 03:50:20 07/23/19 24 07/24/2023 CBC (INCL UDES DIFF/ PLT) red blood cell count 3.93 serge on/uL 3.80-5 .10 normal Not Available [address], [address], 07/24/2023 03:50:20 07/23/19 24 07/24/2023 CBC (INCL UDES DIFF/ PLT) hemoglobin 12.3 g/dL 11.7-1 5.5 normal Not Available [address], [address], 07/24/2023 03:50:20 07/23/19 24 07/24/2023 CBC (INCL UDES DIFF/ PLT) hematocrit 36.6 % 35.0-4 5.0 normal Not Available [address], [address], 07/24/2023 03:50:20 07/23/19 24 07/24/2023 CBC (INCL UDES DIFF/ PLT) MCV 93.1 fL 80.0-1 00.0 normal Not Available [address], [address], 07/24/2023 03:50:20 07/23/19 24 07/24/2023 CBC (INCL UDES DIFF/ PLT) MCH 31.3 pg 27.0-3 3.0 normal Not Available [address], [address], 07/24/2023 03:50:20 07/23/19 24 07/24/2023 CBC (INCL UDES DIFF/ PLT) MCHC 33.6 g/dL 32.0-3 6.0 normal Not Available [address], [address], 07/24/2023 03:50:20 07/23/19 24 07/24/2023 CBC (INCL UDES DIFF/ PLT) RDW 13.2 % 11.0-1 5.0 normal Not Available [address], [address], 07/24/2023 03:50:20 07/23/19 24 07/24/2023 CBC (INCL UDES DIFF/ PLT) platelet count 197 thous and/u L 140-40 0 normal Not Available [address], [address], 07/24/2023 03:50:20 07/23/19 24 07/24/2023 CBC (INCL UDES DIFF/ PLT) MPV 10.0 fL 7.5-12 .5 normal Not Available [address], [address], 07/24/2023 03:50:20 07/23/19 24 07/24/2023 CBC (INCL UDES DIFF/ PLT) absolute neutrophils 2303 cells /uL 1500-7 800 normal Not Available [address], [address], 07/24/2023 03:50:20 07/23/19 24 07/24/2023 CBC (INCL UDES DIFF/ PLT) absolute lymphocytes 1669 cells /uL 850-39 00 normal Not Available [address], [address], 07/24/2023 03:50:20 07/23/19 24 07/24/2023 CBC (INCL UDES DIFF/ PLT) absolute monocytes 357 cells /uL 200-95 0 normal Not Available [address], [address], 07/24/2023 03:50:20 07/23/19 24 07/24/2023 CBC (INCL UDES DIFF/ PLT) absolute eosinophils 301 cells /uL 15-500 normal Not Available [address], [address], 07/24/2023 03:50:20 07/23/19 24 07/24/2023 CBC (INCL UDES DIFF/ PLT) absolute basophils 71 cells /uL 0-200 normal Not Available [facility] [address], [address], 07/24/2023 03:50:20 07/23/19 24 07/24/2023 CBC (INCL UDES DIFF/ PLT) neutrophils 49 % normal Not Available [address], [address], 07/24/2023 03:50:20 07/23/19 24 07/24/2023 CBC (INCL UDES DIFF/ PLT) lymphocytes 35.5 % normal Not Available [address], [address], 07/24/2023 03:50:20 07/23/19 24 07/24/2023 CBC (INCL UDES DIFF/ PLT) monocytes 7.6 % normal Not Available [address], [address], 07/24/2023 03:50:20 07/23/19 24 07/24/2023 CBC (INCL UDES DIFF/ PLT) eosinophils 6.4 % normal Not Available [facility] [address] [place], [address], 07/24/2023 03:50:20 07/23/19 24 07/24/2023 CBC (INCL UDES DIFF/ PLT) basophils 1.5 % normal Not Available [facility] [address] [place], [address], 07/24/2023 03:50:20 05/09/19 23 05/08/2022 US, dawson mancini s, idris extre mity No observ ation record ed. MIGRATION. [facility] (Imaging) [address] [place] [address] [address] [facility], [place], [address], 06/14/2022 00:50:57 05/10/19 23 04/26/2022 XR, tibia + fibul a No observ ation record ed. MIGRATION. [facility] [address], [place], [address], 06/14/2022 00:50:57 05/10/19 23 05/08/2022 US, echoc ardio gram, trans thora cic, compl ete, w/ color flow No observ ation record ed. MIGRATION. [facility] (Cardiology & Emg) [address] [place] [address] [address], [place], [address], 06/14/2022 00:50:57 05/11/19 23 04/26/2022 XR, chest , 2 view No observ ation record ed. MIGRATION. [facility] [address], [place], [address], 06/14/2022 00:50:57 06/02/19 23 06/01/2022 US, pelvi s, compl ete No observ ation record ed. [id number] [facility] [address], [place], [address], 06/14/2022 00:50:57 Result Notes None recorded. Problems Name Problem SNOMED Code Status Onset Date Resolution Date Notes Provider Name and Address Organization Details Recorded Time Edema of lower extremity 338208529 Active 2022 Not Available [facility] 3 00:46:25 Contusion of right lower leg 2360276627335 9109 Active 2022 Not Available [facility] 3 00:46:25 Abrasion of skin of right lower leg 5098814416399 9107 Active 2021 Not Available [facility] 3 00:46:25 Benign essential hypertensi on 7480293 Active 2019 Not Available [facility] 3 00:46:25 Asthma 313621923 Active 2019 Not Available [facility] 3 00:46:25 Accidental fall Active Not Available [facility] 3 00:46:25 Lumbar spondylosi s 292251871 Active 2021 Not Available [facility] 3 00:46:26 Long-term drug therapy Active 2021 Not Available [facility] 3 00:46:26 Current tear of lateral cartilage AND/OR meniscus of knee Active Not Available [facility] 3 00:46:26 Knee pain Active Not Available [facility] 3 00:46:26 Pain of right hip joint 8575789258452 02 Active 2021 Not Available [facility] 3 00:46:26 Osteoarthr itis of left knee joint 9908425214264 09 Active 2021 Not Available [facility] 3 00:46:26 Hypothyroi dism following radioiodin e therapy 02557343 Active 2021 Not Available [facility] 3 00:46:26 Hypothyroi dism 76059199 Active 2018 Not Available [facility] 3 00:46:27 Pain of left knee joint 7649670221320 07 Active 2021 Not Available [facility] 3 00:46:27 Upper respirator y infection 32683984 Active 2021 Not Available [facility] 3 00:46:27 Hyperlipid emia 70044396 Active 2021 Not Available [facility] 3 00:46:27 Derangemen t of knee 56015707 Active Not Available [facility] 3 00:46:27 COVID-19 613440401 Active 2021 Not Available [facility] 3 00:46:27 Heart murmur 29604850 Active 2022 Not Available [facility] 3 00:46:28 Pruritic rash 19030103 Active 2022 WILIAM Rodríguez [address], [address], [place], [address] , [email or web address] 3 12:20:49 Allergic rhinitis 49137027 Active 2023 WILIAM Rodríguez [address], [place], [address] , [email or web address] 4 13:12:48 Problem Notes None recorded. Procedures Surgical History Date Name Laterality Status Provider Name and Address Organization Details Recorded Time 10/13/19 23 Ortho - Cortisone Injection completed Moises Dukes MD [email or web address], [address], [place], [address], [email or web address] 10/12/2022 14:04:53 09/15/19 04 Date of Last Colonoscopy completed Not Available [facility] 06/14/2022 00:42:11 09/15/19 04 Colonoscopy completed Not Available [facility] 06/14/2022 00:42:15 procedure on tibia completed Not Available [facility] 06/14/2022 00:42:15 Tonsillectomy completed Not Available [facility] 06/14/2022 00:42:15 Cholecystectomy completed Not Available [facility] 06/14/2022 00:42:15 Sinus Surgery completed Not Available [facility] 06/14/2022 00:42:15 Imaging Results Imaging Date Name Status LastModified by Organiz ation Details LastModified Time 04/26/2022 XR, tibia + fibula completed [id number] [facility] [address], [place], [address], 06/14/2022 00:50:57 04/26/2022 XR, chest, 2 view completed MIGRATION.[id number] 026 [facility] [address], [place], [address], 06/14/2022 00:50:57 05/08/2022 US, duplex, venous, lower extremity completed MIGRATION.[id number] 026 [facility] (Imaging) [address] [place] [address] [address], [place], [address], 06/14/2022 00:50:57 05/08/2022 US, echocardiogram , transthoracic, complete, w/ color flow completed MIGRATION.[id number] [address] [place] [address] (Cardiology & Emg) [address] [place] [address] [address], [place], [address], 06/14/2022 00:50:57 06/01/2022 US, pelvis, complete completed MIGRATION.[id number] 026 [facility] [address], [place], [address], 06/14/2022 00:50:57 Procedure Notes None recorded. Medical Equipment None Reported. Allergies Allergen ID Allergen Name Allergen Category Reaction Reaction Severity Criticality Documentation Date Start Date Code Code System Note Provider Name and Address Organization Details Recorded Time 291 azithromy chio medicatio n Not available Not available Not available 06/14/2022 26423 RxNorm Not Available [facility] 00:50:26 Medications Name Sig Start Date Stop [...] by injectio n route. 12/11 completed [facility] [place] 0003-049 08-03 Not Available Not Available Not [...] ered by the provider 10/19 completed [facility] [place]: [phone] 17 Not Available Not Available Not [...] by injectio n route. 12/11 completed [facility] [place] 25565-20 07-15 Not Available Not Available Not Available [...] Updated DateTime 10/12/2022 170.18 cm 23.5 kg/m2 51741.86 g Flor Pratt CNA [facility] 10/12/2022 13:39:18 Date Recorded Body height Body temperature Body mass index (BMI) Body weight Respiratory rate Oxygen saturation Oxygen saturation in Arterial blood by Pulse oximetry Heart rate Systolic blood pressure Diastolic blood pressure Provider Name and Address Organization Details Last Updated DateTime 3 170.18 cm 97.3 [degF] 22.9 kg/m2 85253.4 9 g 16 /min 97 % 97 % 70 /min 132 mm[Hg] 82 mm[Hg] SKYLER Richardson [facility] 3 11:26:33 Date Recorded Body mass index (BMI) Body height Body weight Provider Name and Address Organization Details Last Updated DateTime 02/28/2022 21.9 kg/m2 170.18 cm 99261.93 g Not Available [facility] 06/14/2022 00:45:49 Date Recorded Body mass index (BMI) Body height Oxygen saturation Oxygen saturation in Arterial blood by Pulse oximetry Heart rate Body temperature Body weight Systolic blood pressure Diastolic blood pressure Provider Name and Address Organization Details Last Updated DateTime 3 23.5 kg/m2 170.18 cm 98 % 98 % 76 /min 98.1 [degF] 08981.8 6 g 128 mm[Hg] 70 mm[Hg] Not Available [facility] 3 00:45:44 Date Recorded Body mass index (BMI) Body height Oxygen saturation Oxygen saturation in Arterial blood by Pulse oximetry Heart rate Body temperature Body weight Systolic blood pressure Diastolic blood pressure Systolic blood pressure Diastolic blood pressure Provider Name and Address Organization Details Last Updated DateTime 3 22.9 kg/m2 170.18 cm 99 % 99 % 78 /min 97.8 [degF] 92252.4 9 g 126 mm[Hg] 60 mm[Hg] 140 mm[Hg] 70 mm[Hg] Not Available [facility] 00:45:44 Social History Question Answer Notes LastModified by Organizat ion Details LastModified Time Tobacco Smoking Status Former Smoker quit 30 years ago Not Available [facility] 06/14/2022 00:42:02 What Is Your Level Of Alcohol Consumption? None MIGRATION.55107 26259 Information not available 06/14/2022 Are You Blind Or Do You Have Difficulty Seeing? No MIGRATION.53993 94912 Information not available 06/14/2022 What Is Your Level Of Caffeine Consumption? Moderate MIGRATION.55572 85566 Information not available 06/14/2022 How Much Tobacco Do You Chew? None MIGRATION.72306 37111 Information not available 06/14/2022 In The 14 Days Before Symptom Onset, Have You Had Close Contact With A Laboratory-confir med COVID-19 While That Case Was Ill? No MIGRATION.92586 23171 Information not available 06/14/2022 In The 14 Days Before Symptom Onset, Have You Had Close Contact With A Person Who Is Under Investigation For COVID-19 While That Person Was Ill? No MIGRATION.68531 00156 Information not available 06/14/2022 Are You Deaf Or Do You Have Serious Difficulty Hearing? No MIGRATION.62432 30767 Information not available 06/14/2022 What Type Of Diet Are You Following? REGULAR MIGRATION.99292 50849 Information not available 06/14/2022 Which Illicit Or Recreational Drugs Have You Used? None MIGRATION.97900 45058 Information not available 06/14/2022 Do You Or Have You Ever Used E-cigarettes Or Vape? Never Used Electronic Cigarettes MIGRATION.80933 56625 Information not available 06/14/2022 What Is Your Occupation? Retired MIGRATION.64444 73053 Information not available 06/14/2022 Have There Been Any Changes To Your Family Or Social Situation? No MIGRATION.46508 45244 Information not available 06/14/2022 Do You Use Insect Repellent Routinely? No MIGRATION.61682 38796 Information not available 06/14/2022 What Was The Date Of Your Most Recent Tobacco Screening? 11/22/2021 MIGRATION.19333 58345 Information not available 06/14/2022 What Is Your Relationship Status? MIGRATION.30941 02767 Information not available 06/14/2022 Do You Use Your Seat Belt Or Car Seat Routinely? Yes MIGRATION.95198 52391 Information not available 06/14/2022 Do You Have Smoke And Carbon Monoxide Detectors In Your Home? Yes MIGRATION.73721 78831 Information not available 06/14/2022 Do You Or Have You Ever Used Smokeless Tobacco? Never Used Smokeless Tobacco MIGRATION.41620 70776 Information not available 06/14/2022 Do You Use Any Illicit Or Recreational Drugs? No MIGRATION.93890 32598 Information not available 06/14/2022 Do You Use Sunscreen Routinely? Yes MIGRATION.11441 91032 Information not available 06/14/2022 Have You Recently Traveled Abroad? No MIGRATION.26640 97953 Information not available 06/14/2022 Do You Have Any Dietary Restrictions? No MIGRATION.61547 84735 Information not available 06/14/2022 Do You Or Have You Ever Used Any Other Forms Of Tobacco Or Nicotine? No MIGRATION.80965 01406 Information not available 06/14/2022 Sex: Unknown Functional Status Question Answer Note LastModified by [employer] ion Details LastModified Time Do you have difficulty walking or climbing stairs? No MIGRATION.2620649 026 Information not available 06/14/2022 Do you have transportation difficulties? No MIGRATION.0328685 026 Information not available 06/14/2022 Are you able to walk? YESWOREST MIGRATION.6973683 026 Information not available 06/14/2022 Do you have difficulty doing errands alone? No MIGRATION.2657377 026 Information not available 06/14/2022 Are you able to care for yourself? Yes MIGRATION.8011276 026 Information not available 06/14/2022 Do you have difficulty dressing or bathing? No MIGRATION.1480296 026 Information not available 06/14/2022 What is your exercise level? Moderate MIGRATION.3682652 026 Information not available 06/14/2022 Mental Status Question Answer Note LastModified by [employer] Details LastModified Time Do you have difficulty concentrating, remembering or making decisions? No MIGRATION.675132154 6 Information not available 06/14/2022 Family History Relationship Description Onset Age of this Age Resolved Age Notes LastModified by Organization Details LastModified Time Sister Atrial fibrillation 81 MIGRATION.431 [id number] Not available 06/14/2022 00:42:21 Father Family history of malignant neoplasm MIGRATION.329 [id number] Not available 06/14/2022 00:42:21 Medical History Condition Response ARTHRITIS Y HYPERTENSION Y ASTHMA Y HYPOTHYROIDISM Y HIGH CHOLESTEROL / HYPERLIPIDEMIA Y Gynecological [...] zoster, unspecified formulation 2 completed Not Available [facility] 06/14/2022 00:50:19 Influenza, high-dose, trivalent, PF 9 completed Not Available [facility] 06/14/2022 00:50:19 pneumococcal polysaccharide PPV23 9 completed Not Available [facility] 06/14/2022 00:50:19 Past Encounters Encounter ID Performer Location Encounter Start Date Encounter Closed Date Diagnosis/Indication Diagnosis SNOMED-CT Code Diagnosis ICD10 Code Diagnosis Note [id number] [facility] [address] [place] [address] 06/14/2020 00:00:00 06/14/2020 22:45:55 [id number] Cassy Choi MD [facility] [place] [address] [place] [address] 07/19/2020 00:00:00 07/19/2020 17:08:40 [id number] WILIAM Rodríguez [facility] [place] [address] [place] [address] 10/19/2020 00:00:00 10/31/2020 21:29:02 [id number] WILIAM Rodríguez [facility] [place] [address] [place] [address] 05/25/2021 00:00:00 06/13/2021 18:29:47 [id number] Moises Dukes MD [facility] [place] [address] [place] [address] 10/20/2021 00:00:00 10/20/2021 13:44:58 [id number] Moises Dukes MD [facility] [place] [address] [place] [address] 11/17/2021 00:00:00 11/17/2021 14:11:10 [id number] Abilio Morrow MD [facility] [place] [address] [place] [address] 11/22/2021 00:00:00 12/13/2021 23:24:32 [id number] Moises Dukes MD [facility] [place] [address] [place] [address] 02/28/2022 00:00:00 02/28/2022 14:33:59 [id number] WILIAM Rodríguez [facility] [place] [address] [place] [address] 04/26/2022 00:00:00 05/15/2022 22:14:50 [id number] WILIAM Rodríguez [facility] [place] [address] [place] [address] 05/23/2022 00:00:00 06/13/2022 18:40:29 [id number] Moises Dukes MD [facility] [place] [address] [place] [address] 10/12/2022 13:36:00 10/12/2022 15:17:39 Osteoarthritis of left knee joint 3733670415 56355 M17.12 Pain of le ft knee joint 5090149606 87232 M25.562 Lumbar spondylosis 77975 0009 M47.121 [id number] WILIAM Rodríguez [facility] [place] [address] [place] [address] 12/12/2022 11:18:55 12/12/2022 11:56:13 Benign essential hypertension 5938182 I10 stable on hctz 12.5mg daily and verapamil ER 120mg daily Asthma 463607206 J45.90 9 stable on breo (PRN per her use) and antihistam ine Hyperlipidemia 07226458 E78.5 pt declines statin therapy due to muscle aches. mild LDL and triglyceri de elevation on labs. follow labs in apr. Hypothyroidism 16903076 E03.9 stable on supplement . repeat labs in apr. Long-term drug therapy 731225284 Z79.899 Health Concerns Section Related Observation LastModified by Organization Detai ls LastModified Time None Recorded Concern Status LastModified by Organization Details LastModified Time None Recorded Advance Directives Directive None Recorded Payers Encounter Date Sequence Insurance Name Policy Number Policy Castillo Covered Member ID Castillo Member ID Guarantor Name 10/12/2022 1 [facility] (MEDICARE REPLACEMENT/A DVANTAGE - PPO) [id number] Tamar Solis [id number] Tamar Solis 12/12/2022 1 [facility] (MEDICARE REPLACEMENT/A DVANTAGE - PPO) [id number] Tamar Solis [id number] Tamar Solis Notes Date Note Type Note [...] no change in bowel/bladder habits;swelling;warmth;grinding Not Available [place] [facility] 02/28/2022 14:33:59 023 text/ht ml Generic HPI [...] no hair changes;dry skin;skin changes Not Available [facility] [employer] [facility] 05/15/2022 22:14:50 023 text/ht ml Asthma F/UReported [...] no hair changes;dry skin;skin changes Not Available [facility] 06/13/2022 18:40:29 023 text/ht ml Patient presents knee pain left greater than right. He has had pain for some time now it seems to worse time pain is localized primarily to the left knee is worse with activity. Moises Dukes MD [address] [place] [address], [address], [facility] 10/12/2022 14:06:27 023 text/ht ml AsthmaReported bypatient.Notes:stable [...] changes; no hair changes WILIAM Rodríguez [address] [facility] [facility] [address], [place], [address], [place] [facility] 12/12/2022 13:06:45 OBGyn Episode No OBEpisode recorded.
--- OUTSIDE RECORDS SUMMARY | 2024-08-14 15:39 | XMS_ITS | Clinical Summary ---
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
--- OUTSIDE RECORDS SUMMARY | 2024-08-14 15:39 | XMS_ITS | Referral Summary ---
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
== END 2024-08-14 15:19 | disposition home or self-care (01) ==
PROVIDERS: PCP Physician Assistant; Visit Provider Physician Assistant
DX: R22.42 Localized swelling, mass and lump, left lower limb (principal)
CPT/HCPCS: 93971

== ENCOUNTER 2025-01-15 00:11 | Emergency (ER) | payer MEDICARE, SELFPAY ==
--- OUTSIDE RECORDS SUMMARY | 2006-11-27 10:03 | XMS_ITS | Continuity of Care Document ---
Author Organization [facility] Address [address] [place] [address] Exec utive [facility] [address] [place] [address] Phone Care Team Providers Care Contract Assistant Name Role Phone Barbara Ballesteros Unavailable Unavailable Procedures Procedure Date Eye Exam Established Pt Advance Directives Directive Yes / No Effective Date File Name No Information Encounters Encounter Description Practice Location Reason(s) For Visit Diagnoses Date Provider Providers Copied on Encounter [facility], [address], [place], [place], [id number], [place] tel:[phone] [facility] No Information 4-[address] 7 Lesli Jimenez. [address] [facility] [address] [facility] , [address], [place], [address], [place]. tel:[phone] Family History Family Member Type Diagnosis Age At Onset No Information Payers Payer name Insurance type Covered constitution party ID Authoriza tion(s) [place] [id number] Social History Type Description Quantity Date Captured Comments Sex Female Smoking Status No Information Chief Complaint And Reason For Visit No Information Reason For Referral Reason For Referral No Information History Of Present Illness Encounter Date Complaint History Of Prese nt Illness No Information Functional Status Date Functional Assessmen t No Information Instructions Date Instruction Additional Infor mation No Information Assessments Type Assessment Date No Information Patient Care Teams Name Effective Dates (start - stop) Status Members No Information
--- OUTSIDE RECORDS SUMMARY | 2006-11-27 10:03 | XMS_ITS | Continuity of Care Document ---
Author Organization [facility] Address [address] [place] [address] Exec utive [facility] [address] [place] [address] Phone Care Team Providers Care Assembler Truck Trailer Name Role Phone Barbara Ballesteros Unavailable Unavailable Procedures Procedure Date Eye Exam Established Pt Advance Directives Directive Yes / No Effective Date File Name No Information Encounters Encounter Description Practice Location Reason(s) For Visit Diagnoses Date Provider Providers Copied on Encounter [facility], [address], [place], [place], [id number], [place] tel:[phone] [facility] No Information 4-[address] Lesli Jimenez. [address] [facility] [address] , [address], [place], [address], [place]. tel:[phone] Family History Family Member Type Diagnosis Age At Onset No Information Payers Payer name Insurance type Covered democrat ID Authoriza tion(s) [place] [id number] Social History Type Description Quantity Date Captured [...]
--- NOTE | ~2025-01-15 | CT_ITS ---
CT HEAD NON-CONTRAST CT C-SPINE Clinical History: head lac and hematoma occipital after fall in bath Comparison: None Technique: Unenhanced axial images skull base to vertex. Coronal, sagittal reformats. Axial images thoracic inlet to skull base. Sagittal and coronal reformats. CT images acquired with automatic exposure control for dose reduction DLP: 605 mGy-cm Findings: Head: Sulci, ventricles: Unremarkable. No intracerebral hemorrhage. No evidence acute territorial infarct. No mass effect, midline shift, intra-/extra-axial fluid collection. Bony calvarium intact. Visualized paranasal sinuses: Ethmoid and maxillary fluid. Mastoid air cells: Clear. Posterior scalp hematoma. C-spine: No acute fracture. Grade 1 anterolisthesis C2 on 3, C3 on 4. Straightening of normal cervical lordosis. Moderate degenerative changes and disc disease. Prevertebral soft tissues within normal limits. Visualized lung apices: Clear. Visualized thyroid: Prominent cystic nodule left lobe. No enlarged cervical nodes. IMPRESSION: HEAD: 1. No acute intracranial findings. C-SPINE: 1. No acute fracture. Reviewed, dictated and finalized at location R. IMPRESSION: HEAD: 1. No acute intracranial findings. C-SPINE: 1. No acute fracture.
--- NOTE | ~2025-01-15 | CT_ITS ---
EXAMINATION: CT pelvis wo con DATE: 01/15/2025 02:18 INDICATION: Sacral pain. Low back pain. Fall. TECHNIQUE: Computed tomography (CT) of the pelvis was performed without intravenous contrast. Automated exposure control and iterative reconstruction technique were employed. The dose-length product was 266.26 mGy-cm. COMPARISON: None FINDINGS: There is diverticulosis of the colon without evidence of diverticulitis. There are no dilated loops of bowel. The appendix is normal. There are no pathologically enlarged lymph nodes. There is no free intraperitoneal fluid. There is severe lumbar spondylosis. There is a fracture deformity of S5 segment of the sacrum. 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 There is presacral fat stranding, consistent with inflammation versus hematoma. There is moderate osteoarthritis of the hips. There is a benign bone island in left femoral head. There is a hemangioma in L4 vertebral body. IMPRESSION: 1. Age-indeterminate fracture deformity of S5 segment of the sacrum. Reviewed, dictated and finalized at location E.
[2025-01-15 00:13] VITALS: BP 142/55; PULSE 79; RESP 16; TEMP 36.8; O2SAT 94
--- OUTSIDE RECORDS SUMMARY | 2025-01-15 00:13 | XMS_ITS | Data Portability ---
Author Organization [place] [facility] [employer], Main Office Address [address] [place] [address] Care Team Providers Care Buyer Tobacco Head Name Role Phone VIBHA CHEN Primary Care Provider [phone] VIBHA CHEN Referring Provider [phone] Assessment Encounter Date Assessment Date Assessment LastModified [...] deformity grinding crepitus and pain. X-rays show [id number] arthritis. She will continue with her exercises. [...] Lab hepatic function panel, serum 2022 024 [facility], [address], [place], [address], 4 03:50:19 BMP, serum or plasma 2022 024 [facility], [address], [place], [address], 4 03:50:18 CBC w/ auto diff 2022 024 [facility], [address], [place], [address], 4 03:50:20 TSH + free T4, serum 2022 024 [facility], [address], [place], [address], 4 03:50:15 lipid panel, serum 2022 024 [facility], [address], [place], [address], 4 03:50:17 Referral None recorded. Procedures injection/a spiration joint/bursa (PROC) - in office procedure, administere d by provider 2022 023 [email or web address] In-Office Order, Internal Use Only DO Not Attach Compendium DO Not Attach Compendium, Do Not Delete/merge, 100[address] 3 13:40:46 Surgeries None recorded. Imaging None recorded. Medication Orders Kenalog 10 mg/mL suspension for injection 2022 023 [email or web address] 4 [id number], [address], [id number], 3 15:12:11 ropivacaine (PF) 5 mg/mL (0.5 %) injection solution 2022 023 [email or web address] 4 [facility] #[id number], [address], [id number], 3 15:12:24 diclofenac sodium 75 mg tablet,miri yed release 2022 023 [email or web address] 4 [facility] #[id number], [address], [id number], 3 11:25:38 Patient TargetsNo targets recorded. Patient InstructionsNo instructions recorded. Reason for Referral None Reported. Results Created Date Observation Date Name Description Value Unit Range Abnormal Flag Note LastModifiedBy Organization Detail LastModifiedTime 04/27/19 23 04/28/2022 URINA LYSIS , COMPL ETE color yellow yellow normal Not Available [address], [address], 04/28/2022 13:42:43 04/27/1904/28/2022 URINA LYSIS , COMPL ETE appearance clear clear normal Not Available [address], [address], 04/28/2022 13:42:43 04/27/1904/28/2022 URINA LYSIS , COMPL ETE specific gravity 1.007 1.001- 1.035 normal Not Available [address], [address], 04/28/2022 13:42:43 04/27/19 23 04/28/2022 URINA LYSIS , COMPL ETE pH 7.5 5.0-8. 0 normal Not Available [address], [address], 04/28/2022 13:42:43 04/27/19 23 04/28/2022 URINA LYSIS , COMPL ETE glucose negati ve negati ve normal Not Available [address], [address], 04/28/2022 13:42:43 04/27/1904/28/2022 URINA LYSIS , COMPL ETE bilirubin negati ve negati ve normal Not Available [facility] [address], [address], 04/28/2022 13:42:43 04/27/19 23 04/28/2022 URINA LYSIS , COMPL ETE ketones negati ve negati ve normal Not Available [facility] [address], [address], 04/28/2022 13:42:43 04/27/19 23 04/28/2022 URINA LYSIS , COMPL ETE occult blood negati ve negati ve normal Not Available [address], [address], 04/28/2022 13:42:43 04/27/19 23 04/28/2022 URINA LYSIS , COMPL ETE protein negati ve negati ve normal Not Available [address], [address], 04/28/2022 13:42:43 04/27/19 23 04/28/2022 URINA LYSIS , COMPL ETE nitrite negati ve negati ve normal Not Available [address], [address], 04/28/2022 13:42:43 04/27/19 23 04/28/2022 URINA LYSIS , COMPL ETE leukocyte esterase negati ve negati ve normal Not Available [address], [address], 04/28/2022 13:42:43 04/27/19 23 04/28/2022 URINA LYSIS , COMPL ETE WBC none seen /hpf < or = 5 normal Not Available [address], [address], 04/28/2022 13:42:43 04/27/19 23 04/28/2022 URINA LYSIS , COMPL ETE RBC none seen /hpf < or = 2 normal Not Available [address], [address], 04/28/2022 13:42:43 04/27/19 23 04/28/2022 URINA LYSIS , COMPL ETE squamous epithelial cells none seen /hpf < or = 5 normal Not Available [address], [address], 04/28/2022 13:42:43 04/27/19 23 04/28/2022 URINA LYSIS , COMPL ETE bacteria none seen /hpf none seen normal Not Available [address], [address], 04/28/2022 13:42:43 04/27/19 23 04/28/2022 URINA LYSIS , COMPL ETE hyaline cast none seen /lpf none seen normal Not Available [address], [address], 04/28/2022 13:42:43 04/27/19 23 04/28/2022 CBC (INCL UDES DIFF/ PLT) hemoglobin 12.3 g/dL 11.7-1 5.5 normal Not Available [address], [address], 04/28/2022 13:42:42 04/27/19 23 04/28/2022 CBC (INCL UDES DIFF/ PLT) white blood cell count 4.3 thous and/u L 3.8-10 .8 normal Not Available [address], [address], 04/28/2022 13:42:42 04/27/19 23 04/28/2022 CBC (INCL UDES DIFF/ PLT) red blood cell count 4.07 serge on/uL 3.80-5 .10 normal Not Available [address], [address], 04/28/2022 13:42:42 04/27/19 23 04/28/2022 CBC (INCL UDES DIFF/ PLT) hematocrit 37.8 % 35.0-4 5.0 normal Not Available [address], [address], 04/28/2022 13:42:42 04/27/19 23 04/28/2022 CBC (INCL UDES DIFF/ PLT) MCV 92.9 fL 80.0-1 00.0 normal Not Available [address], [address], 04/28/2022 13:42:42 04/27/19 23 04/28/2022 CBC (INCL UDES DIFF/ PLT) MCH 30.2 pg 27.0-3 3.0 normal Not Available [address], [address], 04/28/2022 13:42:42 04/27/19 23 04/28/2022 CBC (INCL UDES DIFF/ PLT) MCHC 32.5 g/dL 32.0-3 6.0 normal Not Available [address], [address], 04/28/2022 13:42:42 04/27/19 23 04/28/2022 CBC (INCL UDES DIFF/ PLT) RDW 12.7 % 11.0-1 5.0 normal Not Available [address], [address], 04/28/2022 13:42:42 04/27/19 23 04/28/2022 CBC (INCL UDES DIFF/ PLT) platelet count 207 thous and/u L 140-40 0 normal Not Available [address], [address], 04/28/2022 13:42:42 04/27/1904/28/2022 CBC (INCL UDES DIFF/ PLT) MPV 10.3 fL 7.5-12 .5 normal Not Available [address], [address], 04/28/2022 13:42:42 04/27/19 23 04/28/2022 CBC (INCL UDES DIFF/ PLT) absolute neutrophils 2335 cells /uL 1500-7 800 normal Not Available [address], [address], 04/28/2022 13:42:42 04/27/1908 0504/28/2022 CBC (INCL UDES DIFF/ PLT) absolute lymphocytes 1367 cells /uL 850-39 00 normal Not Available [address], [address], 04/28/2022 13:42:42 04/27/19 23 04/28/2022 CBC (INCL UDES DIFF/ PLT) absolute monocytes 318 cells /uL 200-95 0 normal Not Available [address], [address], 04/28/2022 13:42:42 04/27/19 23 04/28/2022 CBC (INCL UDES DIFF/ PLT) absolute eosinophils 189 cells /uL 15-500 normal Not Available [address], [address], 04/28/2022 13:42:42 04/27/19 23 04/28/2022 CBC (INCL UDES DIFF/ PLT) absolute basophils 90 cells /uL 0-200 normal Not Available [facility] [address], [address], 04/28/2022 13:42:42 04/27/19 23 04/28/2022 CBC (INCL UDES DIFF/ PLT) neutrophils 54.3 % normal Not Available [address], [address], 04/28/2022 13:42:42 04/27/19 23 04/28/2022 CBC (INCL UDES DIFF/ PLT) lymphocytes 31.8 % normal Not Available [facility] [address], [address], 04/28/2022 13:42:42 04/27/19 23 04/28/2022 CBC (INCL UDES DIFF/ PLT) monocytes 7.4 % normal Not Available [facility] [address], [address], 04/28/2022 13:42:42 04/27/19 23 04/28/2022 CBC (INCL UDES DIFF/ PLT) eosinophils 4.4 % normal Not Available [address], [address], 04/28/2022 13:42:42 04/27/19 23 04/28/2022 CBC (INCL UDES DIFF/ PLT) basophils 2.1 % normal Not Available [address], [address], 04/28/2022 13:42:42 04/27/19 23 04/28/2022 B TYPE [...] ol. 2002; 40:97 6-982 . Not Available [address], [address], 04/28/2022 13:42:41 04/27/19 23 04/28/2022 HEPAT IC FUNCT ION PANEL protein, total 5.9 g/dL 6.1-8. 1 low Not Available [address], [address], 04/28/2022 13:42:40 04/27/19 23 04/28/2022 HEPAT IC FUNCT ION PANEL albumin 4.0 g/dL 3.6-5. 1 normal Not Available [facility] [address], [address], 04/28/2022 13:42:40 04/27/19 23 04/28/2022 HEPAT IC FUNCT ION PANEL globulin 1.9 g/dL_ (calc ) 1.9-3. 7 normal Not Available [facility] [address], [address], 04/28/2022 13:42:40 04/27/19 23 04/28/2022 HEPAT IC FUNCT ION PANEL albumin/glob ulin ratio 2.1 (calc ) 1.0-2. 5 normal Not Available [address] [address] [place], [address], 04/28/2022 13:42:40 04/27/19 23 04/28/2022 HEPAT IC FUNCT ION PANEL bilirubin, total 0.6 mg/dL 0.2-1. 2 normal Not Available [address] [address] [place], [address], 04/28/2022 13:42:40 04/27/19 23 04/28/2022 HEPAT IC FUNCT ION PANEL bilirubin, direct 0.1 mg/dL < or = 0.2 normal Not Available [address] [address] [place], [address], 04/28/2022 13:42:40 04/27/19 23 04/28/2022 HEPAT IC FUNCT ION PANEL bilirubin, indirect 0.5 mg/dL _(marysol c) 0.2-1. 2 normal Not Available [address], [address], 04/28/2022 13:42:40 04/27/19 23 04/28/2022 HEPAT IC FUNCT ION PANEL alkaline phosphatase 87 U/L 37-153 normal Not Available [address] [address] [place], [address], 04/28/2022 13:42:40 04/27/19 23 04/28/2022 HEPAT IC FUNCT ION PANEL AST 15 U/L 10-35 normal Not Available [address] [address] [place], [address], 04/28/2022 13:42:40 04/27/19 23 04/28/2022 HEPAT IC FUNCT ION PANEL ALT 13 U/L 6-29 normal Not Available [address], [place], [address], 04/28/2022 13:42:40 04/27/19 23 04/28/2022 BASIC METAB OLIC PANEL glucose 87 mg/dL 65-99 normal Fasti ng refer ence inter otoniel Not Available [address], [address], 04/28/2022 13:42:39 04/27/19 23 04/28/2022 BASIC METAB OLIC PANEL urea nitrogen (BUN) 16 mg/dL 7-25 normal Not Available [facility] [address], [address], 04/28/2022 13:42:39 04/27/19 23 04/28/2022 BASIC METAB OLIC PANEL creatinine 0.68 mg/dL 0.60-0 .95 normal Not Available [address], [address], 04/28/2022 13:42:39 04/27/19 23 04/28/2022 BASIC METAB OLIC PANEL eGFR 87 mL/mi n/1.7 3m2 > or = 60 normal The eGFR is based on the CKD-E PI 2020 equat ion. To calcu late the new eGFR from a previ ous Creat inine or Cysta tin C resul t, go to https ://stella kramer.guadalupe esposito/jesica lyons s/ kdoqi /gfr% 5Fcal culat or Not Available [address], [address], 04/28/2022 13:42:39 04/27/19 23 04/28/2022 BASIC METAB OLIC PANEL BUN/creatini ne ratio not applic able (calc ) 6-22 Not Available [address], [address], 04/28/2022 13:42:39 04/27/19 23 04/28/2022 BASIC METAB OLIC PANEL sodium 145 mmol/ L 135-14 6 normal Not Available [address], [address], 04/28/2022 13:42:39 04/27/19 23 04/28/2022 BASIC METAB OLIC PANEL potassium 4.6 mmol/ L 3.5-5. 3 normal Not Available [address], [address], 04/28/2022 13:42:39 04/27/19 23 04/28/2022 BASIC METAB OLIC PANEL chloride 108 mmol/ L 98-110 normal Not Available [address], [address], 04/28/2022 13:42:39 04/27/19 23 04/28/2022 BASIC METAB OLIC PANEL carbon dioxide 29 mmol/ L 20-32 normal Not Available [address], [address], 04/28/2022 13:42:39 04/27/19 23 04/28/2022 BASIC METAB OLIC PANEL calcium 8.9 mg/dL 8.6-10 .4 normal Not Available [address], [address], 04/28/2022 13:42:39 04/27/19 23 04/28/2022 LIPID PANEL WITH RATIO S triglyceride s 122 mg/dL <150 normal Not Available [address], [address], 04/28/2022 13:42:38 04/27/19 23 04/28/2022 LIPID PANEL WITH RATIO S cholesterol, total 231 mg/dL <200 high Not Available [address], [address], 04/28/2022 13:42:38 04/27/19 23 04/28/2022 LIPID PANEL WITH RATIO S HDL cholesterol 68 mg/dL > or = 50 normal Not Available [address] [address] [place], [address], 04/28/2022 13:42:38 04/27/1904/28/2022 LIPID PANEL WITH RATIO [...] which is a valid ated novel es garvey acjeanne than the Fried cynthia equat ion in the estim ation of LDL-C . Ashlyn waller SS et al. DEMETRA. 2013; 310(1 9): 2061- 2068 (http ://ed ucati on.Qu deepReal Food Works. com/f aq/FA Q164) Not Available [facility] [address], [address], 04/28/2022 13:42:38 04/27/1904/28/2022 LIPID PANEL WITH RATIO S chol/HDLC ratio 3.4 (calc ) <5.0 normal Not Available [address], [address], 04/28/2022 13:42:38 04/27/19 23 04/28/2022 LIPID PANEL WITH RATIO S LDL/HDL ratio 2.0 (calc ) Below avera ge Risk: <2.34 [place] ge Risk: 2.35- 4.12 Moder ate Risk: 4.13- 5.56 High Risk: >5.57 Not Available [address], [address], 04/28/2022 13:42:38 04/27/19 23 04/28/2022 LIPID PANEL WITH RATIO S non HDL cholesterol 163 mg/dL _(marysol c) <130 high For patie nts with diabe lorne plus 1 major ASCVD risk facto r, treat ing to a non-H DL-C goal of <100 mg/dL (LDL- C of <70 mg/dL ) is mikey waller. Not Available [address] [place], [address], 04/28/2022 13:42:38 04/27/19 23 04/28/2022 TSH+F REE T4 TSH 2.60 mIU/L 0.40-4 .50 normal Not Available [address] [address] [place], [address], 04/28/2022 13:42:38 04/27/1904/28/2022 TSH+F REE T4 T4, free 1.1 NG/dL 0.8-1. 8 normal Not Available [address] [place], [address], 04/28/2022 13:42:38 07/23/19 24 07/24/2023 TSH+F REE T4 TSH 2.83 mIU/L 0.40-4 .50 normal Not Available [address], [address], 07/24/2023 03:50:15 07/23/19 24 07/24/2023 TSH+F REE T4 T4, free 1.0 NG/dL 0.8-1. 8 normal Not Available [address] [place], [address], 07/24/2023 03:50:15 07/23/19 24 07/24/2023 LIPID PANEL WITH RATIO S cholesterol, total 242 mg/dL <200 high Not Available [address] [place], [address], 07/24/2023 03:50:17 07/23/19 24 07/24/2023 LIPID PANEL WITH RATIO S HDL cholesterol 68 mg/dL > or = 50 normal Not Available [address], [address], 07/24/2023 03:50:17 07/23/19 24 07/24/2023 LIPID PANEL WITH RATIO S triglyceride s 125 mg/dL <150 normal Not Available [address], [address], 07/24/2023 03:50:17 07/23/19 24 07/24/2023 LIPID PANEL [...] lated using the Ashlyn n-Hop kins calcu latio n, which is a valid ated novel es nelsonte r accur acy than the Fried cynthia equat ion in the estim ation of LDL-C . Ashlyn waller SS et al. DEMETRA. 2013; 310(1 9): 2061- 2068 (http ://ed ucati on.Qu Denise Zedmo. com/f aq/FA Q164) Not Available [address], [address], 07/24/2023 03:50:17 07/23/19 24 07/24/2023 LIPID PANEL WITH RATIO S chol/HDLC ratio 3.6 (calc ) <5.0 normal Not Available [address], [address], 07/24/2023 03:50:17 07/23/1907/24/2023 LIPID PANEL WITH RATIO S LDL/HDL ratio 2.2 (calc ) Below avera ge Risk: <2.34 [place] ge Risk: 2.35- 4.12 Moder ate Risk: 4.13- 5.56 High Risk: >5.57 Not Available [address], [address], 07/24/2023 03:50:17 07/23/19 24 07/24/2023 LIPID PANEL WITH RATIO S non HDL cholesterol 174 mg/dL _(marysol c) <130 high For patie nts with diabe lorne plus 1 major ASCVD risk facto r, treat ing to a non-H DL-C goal of <100 mg/dL (LDL- C of <70 mg/dL ) is consi dered a thera peuti c optio n. Not Available [address], [address], 07/24/2023 03:50:17 07/23/19 24 07/24/2023 BASIC METAB OLIC PANEL glucose 83 mg/dL 65-99 normal Fasti ng refer ence inter otoniel Not Available [address], [address], 07/24/2023 03:50:18 07/23/19 24 07/24/2023 BASIC METAB OLIC PANEL urea nitrogen (BUN) 23 mg/dL 7-25 normal Not Available [address], [address], 07/24/2023 03:50:18 07/23/19 24 07/24/2023 BASIC METAB OLIC PANEL creatinine 0.77 mg/dL 0.60-0 .95 normal Not Available [address], [address], 07/24/2023 03:50:18 07/23/19 24 07/24/2023 BASIC METAB OLIC PANEL eGFR 76 mL/mi n/1.7 3m2 > or = 60 normal Not Available [address], [address], 07/24/2023 03:50:18 07/23/19 24 07/24/2023 BASIC METAB OLIC PANEL BUN/creatini ne ratio SEE NOTE: (calc ) 6-22 Not Repor yuniel: BUN and Creat inine are withi n refer ence range . Not Available [address], [address], 07/24/2023 03:50:18 07/23/19 24 07/24/2023 BASIC METAB OLIC PANEL sodium 142 mmol/ L 135-14 6 normal Not Available [address], [address], 07/24/2023 03:50:18 07/23/19 24 07/24/2023 BASIC METAB OLIC PANEL potassium 4.1 mmol/ L 3.5-5. 3 normal Not Available [address], [address], 07/24/2023 03:50:18 07/23/19 24 07/24/2023 BASIC METAB OLIC PANEL chloride 108 mmol/ L 98-110 normal Not Available [address], [address], 07/24/2023 03:50:18 07/23/19 24 07/24/2023 BASIC METAB OLIC PANEL carbon dioxide 29 mmol/ L 20-32 normal Not Available [address], [address], 07/24/2023 03:50:18 07/23/19 24 07/24/2023 BASIC METAB OLIC PANEL calcium 8.3 mg/dL 8.6-10 .4 low Not Available [address], [address], 07/24/2023 03:50:18 07/23/19 24 07/24/2023 HEPAT IC FUNCT ION PANEL protein, total 5.5 g/dL 6.1-8. 1 low Not Available [address], [address], 07/24/2023 03:50:19 07/23/19 24 07/24/2023 HEPAT IC FUNCT ION PANEL albumin 3.7 g/dL 3.6-5. 1 normal Not Available [address], [address], 07/24/2023 03:50:19 07/23/19 24 07/24/2023 HEPAT IC FUNCT ION PANEL globulin 1.8 g/dL_ (calc ) 1.9-3. 7 low Not Available [address], [address], 07/24/2023 03:50:19 07/23/19 24 07/24/2023 HEPAT IC FUNCT ION PANEL albumin/glob ulin ratio 2.1 (calc ) 1.0-2. 5 normal Not Available [address], [address], 07/24/2023 03:50:19 07/23/19 24 07/24/2023 HEPAT IC FUNCT ION PANEL bilirubin, total 0.4 mg/dL 0.2-1. 2 normal Not Available [address], [address], 07/24/2023 03:50:19 07/23/19 24 07/24/2023 HEPAT IC FUNCT ION PANEL bilirubin, direct 0.1 mg/dL < or = 0.2 normal Not Available [address], [address], 07/24/2023 03:50:19 07/23/19 24 07/24/2023 HEPAT IC FUNCT ION PANEL bilirubin, indirect 0.3 mg/dL _(marysol c) 0.2-1. 2 normal Not Available [address], [address], 07/24/2023 03:50:19 07/23/19 24 07/24/2023 HEPAT IC FUNCT ION PANEL alkaline phosphatase 96 U/L 37-153 normal Not Available [address], [address], 07/24/2023 03:50:19 07/23/19 24 07/24/2023 HEPAT IC FUNCT ION PANEL AST 12 U/L 10-35 normal Not Available [address], [address], 07/24/2023 03:50:19 07/23/19 24 07/24/2023 HEPAT IC FUNCT ION PANEL ALT 13 U/L 6-29 normal Not Available [address], [address], 07/24/2023 03:50:19 07/23/19 24 07/24/2023 CBC (INCL UDES DIFF/ PLT) white blood cell count 4.7 thous and/u L 3.8-10 .8 normal Not Available [address], [address], 07/24/2023 03:50:20 07/23/19 24 07/24/2023 CBC (INCL UDES DIFF/ PLT) red blood cell count 3.93 serge on/uL 3.80-5 .10 normal Not Available [address], [address], 07/24/2023 03:50:20 07/23/19 24 07/24/2023 CBC (INCL UDES DIFF/ PLT) hemoglobin 12.3 g/dL 11.7-1 5.5 normal Not Available [address], [address], 07/24/2023 03:50:20 07/23/19 24 07/24/2023 CBC (INCL UDES DIFF/ PLT) hematocrit 36.6 % 35.0-4 5.0 normal Not Available [address], [address], 07/24/2023 03:50:20 07/23/19 24 07/24/2023 CBC (INCL UDES DIFF/ PLT) MCV 93.1 fL 80.0-1 00.0 normal Not Available [address], [address], 07/24/2023 03:50:20 07/23/19 24 07/24/2023 CBC (INCL UDES DIFF/ PLT) MCH 31.3 pg 27.0-3 3.0 normal Not Available [address], [address], 07/24/2023 03:50:20 07/23/19 24 07/24/2023 CBC (INCL UDES DIFF/ PLT) MCHC 33.6 g/dL 32.0-3 6.0 normal Not Available [address], [address], 07/24/2023 03:50:20 07/23/19 24 07/24/2023 CBC (INCL UDES DIFF/ PLT) RDW 13.2 % 11.0-1 5.0 normal Not Available [address], [address], 07/24/2023 03:50:20 07/23/19 24 07/24/2023 CBC (INCL UDES DIFF/ PLT) platelet count 197 thous and/u L 140-40 0 normal Not Available [address], [address], 07/24/2023 03:50:20 07/23/19 24 07/24/2023 CBC (INCL UDES DIFF/ PLT) MPV 10.0 fL 7.5-12 .5 normal Not Available [facility] [address], [address], 07/24/2023 03:50:20 07/23/19 24 07/24/2023 CBC (INCL UDES DIFF/ PLT) absolute neutrophils 2303 cells /uL 1500-7 800 normal Not Available [address], [address], 07/24/2023 03:50:20 07/23/19 24 07/24/2023 CBC (INCL UDES DIFF/ PLT) absolute lymphocytes 1669 cells /uL 850-39 00 normal Not Available [address], [address], 07/24/2023 03:50:20 07/23/19 24 07/24/2023 CBC (INCL UDES DIFF/ PLT) absolute monocytes 357 cells /uL 200-95 0 normal Not Available [address], [address], 07/24/2023 03:50:20 07/23/19 24 07/24/2023 CBC (INCL UDES DIFF/ PLT) absolute eosinophils 301 cells /uL 15-500 normal Not Available [address], [address], 07/24/2023 03:50:20 07/23/19 24 07/24/2023 CBC (INCL UDES DIFF/ PLT) absolute basophils 71 cells /uL 0-200 normal Not Available [address], [address], 07/24/2023 03:50:20 07/23/19 24 07/24/2023 CBC (INCL UDES DIFF/ PLT) neutrophils 49 % normal Not Available [address], [address], 07/24/2023 03:50:20 07/23/19 24 07/24/2023 CBC (INCL UDES DIFF/ PLT) lymphocytes 35.5 % normal Not Available [address], [address], 07/24/2023 03:50:20 07/23/19 24 07/24/2023 CBC (INCL UDES DIFF/ PLT) monocytes 7.6 % normal Not Available [address], [address], 07/24/2023 03:50:20 07/23/19 24 07/24/2023 CBC (INCL UDES DIFF/ PLT) eosinophils 6.4 % normal Not Available [facility] [address] [place], [address], 07/24/2023 03:50:20 07/23/19 24 07/24/2023 CBC (INCL UDES DIFF/ PLT) basophils 1.5 % normal Not Available [facility] [address] [place], [address], 07/24/2023 03:50:20 05/09/19 23 05/08/2022 US, dawson mancini s, lower extre mity No observ ation record ed. MIGRATION. [facility] (Imaging) [address] [place] [address] [address] [facility], [place], [address], 06/14/2022 00:50:57 05/10/19 23 04/26/2022 XR, tibia + fibul a No observ ation record ed. MIGRATION. [facility] [address], [place], [address], 06/14/2022 00:50:57 05/10/19 23 05/08/2022 US, echoc ardio gram, trans thora cic, compl ete, w/ color flow No observ ation record ed. MIGRATION. [facility] (Cardiology & Emg) [address] [place] [address] [address], [place], [address], 06/14/2022 00:50:57 05/11/19 23 04/26/2022 XR, chest , 2 view No observ ation record ed. MIGRATION. [facility] [address], [place], [address], 06/14/2022 00:50:57 06/02/19 23 06/01/2022 US, pelvi s, compl ete No observ ation record ed. [id number] [facility] [address] [facility], [place], [address], 06/14/2022 00:50:57 Result Notes None recorded. Problems Name Problem SNOMED Code Status Onset Date Resolution Date Notes Provider Name and Address Organization Details Recorded Time Accidental fall Active Not Available [facility] 3 00:46:25 Current tear of lateral cartilage AND/OR meniscus of knee Active Not Available [facility] 3 00:46:26 Knee pain Active Not Available [facility] 3 00:46:26 Derangemen t of knee 97866175 Active Not Available [facility] 3 00:46:27 Hypothyroi dism 01773638 Active 2018 Not Available [facility] 3 00:46:27 Benign essential hypertensi on 5326354 Active 2019 Not Available [facility] 3 00:46:25 Asthma 710486839 Active 2019 Not Available [facility] 3 00:46:25 Long-term drug therapy Active 2021 Not Available [facility] 3 00:46:26 Pain of right hip joint 1053316978507 02 Active 2021 Not Available [facility] 3 00:46:26 Hypothyroi dism following radioiodin e therapy 62377541 Active 2021 Not Available [facility] 3 00:46:26 Hyperlipid emia 51197212 Active 2021 Not Available [facility] 3 00:46:27 Lumbar spondylosi s 165982251 Active 2021 Not Available [facility] 3 00:46:26 Osteoarthr itis of left knee joint 1975448156137 09 Active 2021 Not Available [facility] 3 00:46:26 Pain of left knee joint 4825535097356 07 Active 2021 Not Available [facility] 3 00:46:27 Abrasion of skin of right lower leg 3984018363067 9107 Active 2021 Not Available [facility] 3 00:46:25 COVID-19 702902937 Active 2021 Not Available [facility] 3 00:46:27 Upper respirator y infection 90091252 Active 2021 Not Available [facility] 3 00:46:27 Edema of lower extremity 642777554 Active 2022 Not Available [facility] 3 00:46:25 Contusion of right lower leg 2038709745885 9109 Active 2022 Not Available [facility] 3 00:46:25 Heart murmur 97325911 Active 2022 Not Available [facility] 3 00:46:28 Pruritic rash 85507841 Active 2022 WILIAM Rodríguez [address], [place], [address] , [place] [facility] 3 12:20:49 Allergic rhinitis [id number] Active 2023 WILIAM Rodríguez [address], [place], [address] , [employer] [facility] 4 13:12:48 Problem Notes None recorded. Procedures Surgical History Date Name Laterality Status Provider Name and Address Organization Details Recorded Time 10/13/19 23 Ortho - Cortisone Injection completed Moises Dukes MD [address], [place], [address], [employer] 10/12/2022 14:04:53 09/15/19 04 Date of Last Colonoscopy completed Not Available [facility] 06/14/2022 00:42:11 09/15/19 04 Colonoscopy completed Not Available [facility] 06/14/2022 00:42:15 procedure on tibia completed Not Available [facility] 06/14/2022 00:42:15 Tonsillectomy completed Not Available [facility] 06/14/2022 00:42:15 Cholecystectomy completed Not Available [facility] 06/14/2022 00:42:15 Sinus Surgery completed Not Available [facility] 06/14/2022 00:42:15 Imaging Results None recorded. Procedure Notes None recorded. Medical Equipment None Reported. Allergies Allergen ID Allergen Name Allergen Category Reaction Reaction Severity Criticality Documentation Date Start Date Code Code System Note Provider Name and Address Organization Details Recorded Time 291 azithromy chio medicatio n Not available Not available Not available 06/14/2022 95504 RxNorm Not Available [facility] 3 00:50:26 Medications Name Sig Start Date Stop [...] mg by injectio n route. 12/11 completed [facility]: 0003-049 4-20 Not Available Not Available Not Available cephalexi [...] administ ered by the provider 10/19 completed [facility]: 0409-427 6 Not Available Not Available Not Available hydrochlo [...] mg by injectio n route. 12/11 completed [facility] [address]84[address]-78 4 Not Available Not Available Not Available Claritin- [...] No t Available Vitals Date Recorded Body mass index (BMI) Body height Oxygen saturation Oxygen saturation in Arterial blood by Pulse oximetry Heart rate Body temperature Body weight Systolic And Diastolic Provider Name and Address Organization Details Last Updated DateTime 3 23.5 kg/m2 170.18 cm 98 % 98 % 76 /min 98.1 [degF] 03863.8 6 g 128/70 mm[Hg] Not Available [facility] 3 00:45:44 Date Recorded Body mass index (BMI) Body height Oxygen saturation Oxygen saturation in Arterial blood by Pulse oximetry Heart rate Body temperature Body weight Systolic And Diastolic Systolic And Diastolic Provider Name and Address Organization Details Last Updated DateTime 3 22.9 kg/m2 170.18 cm 99 % 99 % 78 /min 97.8 [degF] 34935.4 9 g 126/60 mm[Hg] 140/70 mm[Hg] Not Available [facility] 3 00:45:44 Date Recorded Body height Body mass index (BMI) Body weight Provider Name and Address Organization Details Last Updated DateTime 10/12/2022 170.18 cm 23.5 kg/m2 45474.86 g [facility] [employer] [facility] 10/12/2022 13:39:18 Date Recorded Body height Body temperature Body mass index (BMI) Body weight Respiratory rate Oxygen saturation Oxygen saturation in Arterial blood by Pulse oximetry Heart rate Systolic And Diastolic Provider Name and Address Organization Details Last Updated DateTime 170.18 cm 97.3 [degF] 22.9 kg/m2 54444.4 9 g 16 /min 97 % 97 % 70 /min 132/82 mm[Hg] SKYLER Richardson [place] - [facility] [employer] [facility] 11:26:33 Date Recorded Body mass index (BMI) Body height Body weight Provider Name and Address Organization Details Last Updated DateTime 02/28/2022 21.9 kg/m2 170.18 cm 09203.93 g Not Available [facility] 06/14/2022 00:45:49 Social History Question Answer Notes LastModified by Organizat ion Details LastModified Time Tobacco Smoking Status Former Smoker quit 30 years ago Not Available [facility] 06/14/2022 00:42:02 Are You Blind Or Do You Have Difficulty Seeing? No MIGRATION.020455 2997 Information not available 06/14/2022 What Is Your Level Of Caffeine Consumption? Moderate MIGRATION.837611 5534 Information not available 06/14/2022 How Much Tobacco Do You Chew? None MIGRATION.100578 4256 Information not available 06/14/2022 In The 14 Days Before Symptom Onset, Have You Had Close Contact With A Laboratory-confir med COVID-19 While That Case Was Ill? No MIGRATION.725245 4668 Information not available 06/14/2022 In The 14 Days Before Symptom Onset, Have You Had Close Contact With A Person Who Is Under Investigation For COVID-19 While That Person Was Ill? No MIGRATION.174273 5460 Information not available 06/14/2022 Are You Deaf Or Do You Have Serious Difficulty Hearing? No MIGRATION.284036 1155 Information not available 06/14/2022 What Type Of Diet Are You Following? REGULAR MIGRATION.596704 5662 Information not available 06/14/2022 Which Illicit Or Recreational Drugs Have You Used? None MIGRATION.543439 5580 Information not available 06/14/2022 Have There Been Any Changes To Your Family Or Social Situation? No MIGRATION.882551 2668 Information not available 06/14/2022 Do You Use Insect Repellent Routinely? No MIGRATION.055698 7251 Information not available 06/14/2022 What Was The Date Of Your Most Recent Tobacco Screening? 11/22/2021 MIGRATION.528734 5654 Information not available 06/14/2022 What Is Your Relationship Status? MIGRATION.003765 8660 Information not available 06/14/2022 Do You Use Your Seat Belt Or Car Seat Routinely? Yes MIGRATION.555790 6292 Information not available 06/14/2022 Do You Have Smoke And Carbon Monoxide Detectors In Your Home? Yes MIGRATION.766268 6613 Information not available 06/14/2022 Do You Use Sunscreen Routinely? Yes MIGRATION.494133 3342 Information not available 06/14/2022 Have You Recently Traveled Abroad? No MIGRATION.156443 3901 Information not available 06/14/2022 Do You Have Difficulty Walking Or Climbing Stairs? No MIGRATION.729202 5063 Information not available 06/14/2022 Do You Have Any Dietary Restrictions? No MIGRATION.069396 4702 Information not available 06/14/2022 Sex: Unknown Functional Status Question Answer Note LastModified by Organizat ion Details LastModified Time Do you use any illicit or recreational drugs? No MIGRATION.026373 0457 Information not available 06/14/2022 Do you or have you ever used any other forms of tobacco or nicotine? No MIGRATION.237041 6010 Information not available 06/14/2022 What is your level of alcohol consumption? None MIGRATION.703068 4196 Information not available 06/14/2022 Do you or have you ever used smokeless tobacco? Never used smokeless tobacco MIGRATION.315202 2201 Information not available 06/14/2022 Do you have transportation difficulties? No MIGRATION.760195 7203 Information not available 06/14/2022 Are you able to walk independently without assistance or assistive devices? YESWOREST MIGRATION.893751 7155 Information not available 06/14/2022 Do you have difficulty doing errands alone? No MIGRATION.239060 5746 Information not available 06/14/2022 Are you able to care for yourself independently? Yes MIGRATION.504371 2112 Information not available 06/14/2022 What is your occupation? retired MIGRATION.523256 3871 Information not available 06/14/2022 Do you have difficulty dressing, bathing, grooming, or toileting? No MIGRATION.218194 8445 Information not available 06/14/2022 Do you or have you ever used e-cigarettes or vape? Never used electronic cigarettes MIGRATION.303012 2517 Information not available 06/14/2022 What is your exercise level? Moderate MIGRATION.722748 2826 Information not available 06/14/2022 Mental Status Question Answer Note LastModified by Organizat ion Details LastModified Time Do you have difficulty concentrating, remembering or making decisions? No MIGRATION.488281415 6 Information not available 06/14/2022 Family History Relationship Description Onset Age of this Age Resolved Age Notes LastModified by Organization Details LastModified Time Sister Atrial fibrillation 81 MIGRATION.[id number] Not available 06/14/2022 00:42:21 Father Family history of malignant neoplasm MIGRATION.260 [id number] Not available 06/14/2022 00:42:21 Medical History Condition Response ARTHRITIS Y HYPERTENSION Y HIGH CHOLESTEROL / HYPERLIPIDEMIA Y HYPOTHYROIDISM Y ASTHMA Y Gynecological History Statement/Question Response Abnormal Pap [...] zoster, unspecified formulation 2 completed Not Available [facility] 06/14/2022 00:50:19 Influenza, high-dose, trivalent, PF 9 completed Not Available [facility] 06/14/2022 00:50:19 pneumococcal polysaccharide PPV23 9 completed Not Available [facility] 06/14/2022 00:50:19 Past Encounters Encounter ID Performer Location Encounter Start Date Encounter Closed Date Diagnosis/Indication Diagnosis SNOMED-CT Code Diagnosis ICD10 Code Diagnosis IMO Codes Diagnosis Note [id number] [facility] [address] [place] [address] 06/14/2020 00:00:00 06/14/2020 22:45:55 [id number] Cassy Choi MD [facility] [place] [address] [place] [address] 07/19/2020 00:00:00 07/19/2020 17:08:40 [id number] WILIAM Rodríguez [facility] [place] [address] [place] [address] 10/19/2020 00:00:00 10/31/2020 21:29:02 [id number] WILIAM Rodríguez [facility] [place] [address] [place] [address] 05/25/2021 00:00:00 06/13/2021 18:29:47 [id number] Moises Dukes MD [facility] [place] [address] [place] [address] 10/20/2021 00:00:00 10/20/2021 13:44:58 [id number] Moises Dukes MD [facility] [place] [address] [place] [address] 11/17/2021 00:00:00 11/17/2021 14:11:10 [id number] Abilio Morrow MD [facility] [place] [address] [place] [address] 11/22/2021 00:00:00 12/13/2021 23:24:32 [id number] Moises Dukes MD [facility] [place] [address] [place] [address] 02/28/2022 00:00:00 02/28/2022 14:33:59 [id number] WILIAM Rodríguez [facility] [place] [address] [place] [address] 04/26/2022 00:00:00 05/15/2022 22:14:50 [id number] WILIAM Rodríguez [facility] [place] [address] [place] [address] 05/23/2022 00:00:00 06/13/2022 18:40:29 [id number] Moises Dukes MD [facility] [facility] [address] [place] [address] 10/12/2022 13:36:00 10/12/2022 15:17:39 Osteoarthritis of left knee joint 7519624653 38419 M17.12 Pain of le ft knee joint 5029678256 61681 M25.562 Lumbar spondylosis 12221 0009 M47.724 [id number] WILIAM Rodríguez [facility] [place] [facility] [place] [address] [place] [address] 12/12/2022 11:18:55 12/12/2022 11:56:13 Benign essential hypertension 9856696 I10 stable on hctz 12.5mg daily and verapamil ER 120mg daily Asthma 532384358 J45.90 9 stable on breo (PRN per her use) and antihistam ine Hyperlipidemia 86172771 E78.5 pt declines statin therapy due to muscle aches. mild LDL and triglyceri de elevation on labs. follow labs in apr. Hypothyroidism 42997113 E03.9 stable on supplement . repeat labs in apr. Long-term drug therapy 019594481 Z79.899 Health Concerns Section Related Observation LastModified by Organization Detai ls LastModified Time None Recorded Concern Status LastModified by Organization Details LastModified Time None Recorded Advance Directives Directive None Recorded Payers Insurance Date Sequence Insurance Name Policy Number Policy Castillo Covered Member ID Castillo Member ID Guarantor Name 12/09/2022 1 [place] (MEDICARE REPLACEMENT/A DVANTAGE - PPO) [id number] Tamar Solis [id number] Tamar Solis Notes Date Note Type Note Provider Name and Address Organization Details Recorded Time 10/13/19 23 text/htm l Patient presents knee pain left greater than right. He has had pain for some time now it seems to worse time pain is localized primarily to the left knee is worse with activity. Moises Dukes MD [address] [place] [address], [facility] [address], [place], [address], [facility] [employer] 10/12/2022 14:06:27 12/13/19 23 text/htm l HypertensionReported by PatientHPIFor duration, patient reportshas noted for years. For onset/timing, patient reportsbetter. For alleviating factors, patient reportsmedication. For associated symptoms, patient reportsno shortness of breath,no fatigue,no palpitations,no decline in exercise capacity, andno snoring. HyperlipidemiaReported by PatientHPIFor duration, patient reportschronic. For compliance, patient reportsdoes not exercisebut reportscompliantandcompliant with diet. For risk factors, patient reportshypertension. For control, patient reportsusually well controlled. For complications, patient reportsno coronary artery disease,no peripheral artery disease, andno cardiovascular disease. AsthmaReported by Patientstable on antihistamine and breo samples HypothyroidismReported by PatientHPIFor context/risk, patient reportshistory of hypothyroidismandfemale genderbut reportsnormal thyroid levels,no history of head or neck radiation during childhood,no history of thyroid disease,no history of hyperthyroidism, andno excess iron exposure. For exercise, patient reportsno exercise. For quality, patient reportsnot changing. For duration, patient reportsconstant. For onset/timing, patient reportsstill present. For modifying factors, patient reportsmedication. For associated symptoms, patient reportsno cold intolerance,no heat intolerance,no weight loss,no weight gain,no double vision,no dry eyes,no hoarseness,no difficulty swallowing,no neck masses,no deepening of the voice,no fast heart rate,no increased blood pressure,no palpitations,no chest pain,no chest tightess or pressure,no constipation,no diarrhea,no vomiting,no decreased appetite,no loose stools,no irregular menstrual periods,no excessive sweating,no joint pain,no numbness,no tingling of the hands or feet,no dry skin,no tremor,no nervousness,no anxiety,no depression,no fatigue,no sleep difficulties,no skin changes, andno hair changes. WILIAM Rodríguez [address] [facility], [facility] [address], [place], [address], [facility] [employer] 12/12/2022 13:06:45 OBGyn Episode No OBEpisode recorded.
--- OUTSIDE RECORDS SUMMARY | 2025-01-15 00:13 | XMS_ITS | Clinical Summary ---
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 [address] [place] [address] Care Teams Trade Mark Examiner Relationship Specialty Start Date End Date Sho Love PA PCP - General Physician Facilities Custodian 07/28/19
--- OUTSIDE RECORDS SUMMARY | 2025-01-15 00:14 | XMS_ITS | Data Portability ---
Author Organization [facility] Address [address] [place] [place] [address] Care Team Providers Care Spanish Teacher Name Role Phone VIBHA CHEN Primary Care Provider Unavailab le Assessment No assessment recorded. Plan of Treatment Reminders Order Date Submit Date Provider Last Modified By Organization Details Last Modified Time Details Appointments ANY 15 2024 01:00P M WILIAM Rodríguez Not available Not available Not available Lab CBC w/ auto diff 2024 025 [facility], [address], [place], [address], 08/12/2024 15:18:40 BMP, serum or plasma 2024 025 [facility], [address], [place], [address], 08/12/2024 15:18:40 hepatic function panel, serum 2024 025 [facility], [address], [place], [address], 08/12/2024 15:18:40 TSH + free T4, serum 2024 025 MEL[facility] [employer] [facility], [address], [place], [address], 08/07/2024 10:56:12 lipid panel, serum [email or web address], [address], [place], [address], 08/12/2024 15:18:40 CBC w/ auto diff [address] [facility], [address], [address], [place], [address], 02/14/2024 10:33:10 BMP, serum or plasma [address] [facility], [address], [address], [place], [address], 02/14/2024 10:33:10 hepatic function panel, serum [address] [facility], [address], [address], [place], [address], 02/14/2024 10:33:10 TSH + free T4, serum [address] [facility], [address], [address], [place], [address], 02/14/2024 10:33:09 lipid panel, serum [address] [facility], [address], [address], [place], [address], 02/14/2024 10:33:09 Referral None recorded. Procedures None recorded. Surgeries None recorded. Imaging US, duplex, venous, lower extremity , unilatera l - r/o any dvt [email or web address] [place] [address] (Imaging), [address], [place], [address], 08/14/2024 20:18:58 US, duplex, carotid artery 2024 025 [facility], [address], [place], [address], 07/30/2024 17:20:52 XR, chest, 2 view 2023 [facility] , [address], [place], [address], 01/15/2024 17:28:43 Medication Orders Silvadene 1 % topical cream [address] [facility], [address] [facility], [place], [place], [id number], 08/14/2024 15:51:39 prednison e 50 mg tablet 2023 024 [facility][id number], [address], [id number], 02/14/2024 16:02:29 amoxicill in 875 mg-potass ium clavulana te 125 mg tablet [address] [facility]88512, [address], [id number], 02/14/2024 16:02:03 omeprazol e 40 mg capsule,d elayed release 2023 024 [email or web address]03884, [address], [id number], 01/15/2024 13:55:40 Patient TargetsNo targets recorded. Patient [...] [#/volume] in blood by automated count absol [place] [facility] Not Available Not Available 07/01/2024 17:43:16 07/23/19 24 07/24/2023 CBC W Auto Diffe renti al panel - Blood lymphocytes [#/volume] in blood by automated count absol [place] [facility] Not Available Not Available 07/01/2024 17:43:16 07/23/19 24 07/24/2023 CBC W Auto Diffe renti al panel - Blood monocytes [#/volume] in blood by automated count absol [place] monoc ytes Not Available Not Available 07/01/2024 17:43:16 07/23/19 24 07/24/2023 CBC W Auto Diffe renti al panel - Blood eosinophils [#/volume] in blood by automated count absol [place] eosin ophil s Not Available Not Available 07/01/2024 17:43:16 07/23/19 24 07/24/2023 CBC W Auto Diffe renti al panel - Blood basophils [#/volume] in blood by automated count absol [place] basop hils Not Available Not Available 07/01/2024 [...] 1999 panel - Serum or Plasm a albumin [...] 2000 panel - Serum or Plasm a aspartate aminotransfe rase [enzymatic activity/vol ume] in serum or plasma AST Not Available Not Available 06/14 17:43:16 07/23/19 24 07/24/2023 Hepat ic funct ion 2000 panel - Serum or Plasm a alanine aminotransfe rase [enzymatic activity/vol ume] in serum or plasma ALT Not Available Not Available 06/14 17:43:16 07/23/19 24 07/24/2023 Basic metab olic 1999 [...] 2000 panel - Serum or Plasm a carbon [...] l Not Available Not Available 07/01/2024 17:43:15 04/08/07/24/2023 Free T4 and TSH panel - Serum or Plasm a thyrotropin [units/volum e] in serum or plasma TSH Not Available Not Available 17:43:15 07/23/1907/24/2023 Free T4 and TSH panel - Serum or Plasm a thyroxine (T4) free [mass/volume ] in serum or plasma T4, free Not Available Not Available 07/01/2024 17:43:15 01/15/20 24 01/15/2024 XR, chest , 2 view No observ ation record ed. [facility] [address], [place], [address], 01/15/2024 17:46:07 07/31/19 25 07/30/2024 US, janene mancini id arter y No observ ation record ed. [address], [place], [address], 08/06/2024 16:09:56 08/15/19 25 08/14/2024 US, dawson mancini s, lower extre mity, unila teral No observ ation record ed. [address], [place], [address], 08/14/2024 20:18:50 Result Notes None recorded. Problems Name Problem SNOMED Code Status Onset Date Resolution Date Notes Provider Name and Address Organization Details Recorded Time Long-term drug therapy Active 2023 WILIAM Rodríguez Attn: Najma elias,[address] [place], [address], [facility] 4 14:16:47 Hyperlipidemia 93107071 Active 2023 WILIAM Rodríguez Attn: Najma elias,[address] [place], [address], [facility] 4 14:16:49 Asthma 050471014 Active 2023 WILIAM Rodríguez Attn: Najma elias,[address] [place], [address], [place] [facility] 4 14:16:50 Acid reflux 082547687 Active 2023 WILIAM Rodríguez Attn: Najma elias,[address] [facility], [place], [address], [place] [facility] 4 14:16:52 Hypothyroidism 75651871 Active 2023 WILIAM Rodríguez Attn: Najma elias,[address] [facility], [place], [address], [place] [facility] 4 14:16:54 Benign essential hypertension 4714063 Active 2023 WILIAM Rodríguez Attn: Najma elias,[address] [facility], [place], [address], [place] [facility] 4 14:16:55 Body mass index 20-24 - normal 940272532 Active 2024 Elieser Forbes [place] null, [place] [facility] 5 14:00:53 Seasonal allergy 345948784 Active 2024 Lori Romero LPN null, [place] [facility] 5 13:41:02 Problem Notes None recorded. Medical Equipment None Reported. Allergies Allergen ID Allergen Name Allergen Category Reaction Reaction Severity Criticality Documentation Date Start Date Code Code System Note Provider Name and Address Organization Details Recorded Time 681129 azithromy chio medicatio n Not available Not available Not available 01/15/2024 08596 RxNorm WILIAM Rodríguez Attn: Najma elias,[address] [facility], [place], [address], [place] [facility] 4 14:19:47 Medications Name Sig Start Date Stop Date Status Note LastModified by Organization Details LastModified Time verapamil ER (SR) 120 mg tablet,exte nded release TAKE 1 TABLET BY MOUTH DAILY active Not Available Not Available No t Available losartan 50 mg tablet TAKE 1 TABLET BY MOUTH DAILY. CONTINUE 1 TABLET DAILY OF VERAPAMIL 09/25 completed Not Available Not Available Not Available amoxicillin 500 mg capsule TAKE 1 CAPSULE BY MOUTH EVERY 8 HOURS FOR 7 DAYS 07/15 completed Not Available Not Available Not Available silver sulfadiazin e 1 % topical cream APPLY A THICK LAYER TOPICALLY TO LEFT LEG WOUND TWICE DAILY active Not Available Not Available No t Available cetirizine 10 mg tablet TAKE ONE TABLET BY MOUTH EVERY DAY NEEDED active Not Available Not Available No t Available sulfamethox azole 400 mg-trimetho prim 80 mg tablet Take 2 tablets every 12 hours by oral route for 10 days. active Not Available Not Available No t Available prednisone 20 mg tablet TAKE 2 TABLETS BY MOUTH EVERY DAY FOR 5 DAYS 07/15 completed Not Available Not Available Not Available clobetasol 0.05 % topical cream APPLY A THIN LAYER TO THE AFFECTED AREA TOPICALLY TWICE DAILY active Not Available Not Available No t Available omeprazole 40 mg capsule,del ayed release TAKE 1 CAPSULE BY MOUTH EVERY DAY 2024 active Not Available Not Available Not Avai lable amoxicillin 500 mg tablet TAKE 1 TABLET BY MOUTH FOUR TIMES DAILY UNTIL GONE 01/14 completed Not Available Not Available Not Available levothyroxi ne 75 mcg tablet TAKE 1 TABLET BY MOUTH EVERY MORNING active Not Available Not Available No t Available cephalexin 500 mg capsule TAKE 1 CAPSULE BY MOUTH EVERY 6 HOURS FOR 10 DAYS 10/23 completed Not Available Not Available Not Available prednisone 50 mg tablet TAKE 1 TABLET BY MOUTH EVERY DAY FOR 5 DAYS 02/13 completed Not Available Not Available Not Available diclofenac sodium 75 mg tablet,miri yed release TAKE 1 TABLET BY MOUTH TWICE DAILY 07/19 completed Not Available Not Available Not Available mupirocin 2 % topical ointment APLLY A PEA SIZED AMOUNT TO AFFECTED AREA OF LOWER LEG BY TOPICAL ROUTE THREE TIMES DAILY active Not Available Not Available No t Available levofloxaci n 500 mg tablet TAKE 1 TABLET BY MOUTH EVERY 24 HOURS 02/13 completed Not Available Not Available Not Available methylpredn isolone 4 mg tablets in a dose pack FOLLOW PACKAGE DIRECTION S STARTING 02/07/2307/19 completed Not Available Not Available Not Available cefdinir 300 mg capsule TAKE 1 CAPSULE BY MOUTH EVERY 12 HOURS active Not Available Not Available No t Available losartan 100 mg tablet TAKE 1 TABLET BY MOUTH EVERY DAY active Not Available Not Available No t Available amoxicillin 875 mg-potassiu m clavulanate 125 mg tablet TAKE 1 TABLET BY MOUTH EVERY 12 HOURS 02/13 completed Not Available Not Available Not Available verapamil ER 120 mg 24 hr capsule,ext ended release TAKE 2 TABLET BY MOUTH EVERY DAY 07/15 completed Not Available Not Available Not Available lactulose 10 gram/15 mL oral solution TAKE 15 ML BY MOUTH EVERY DAY FOR 3 DAYS NEEDED 08/01 completed Not Available Not Available Not Available Breo Ellipta 100 mcg-25 mcg/dose powder for inhalation Inhale 1 puff every day by inhalatio n route. active Not Available Not Available No t Available Vitals Date Recorded Body height Body mass index (BMI) Body weight Respiratory rate Oxygen saturation Oxygen saturation in Arterial blood by Pulse oximetry Heart rate Systolic And Diastolic Provider Name and Address Organization Details Last Updated DateTime 5 170.18 cm 22.4 kg/m2 11451.7 1 g 18 /min 100 % 100 % 71 /min 136/82 mm[Hg] Elieser Forbes MA [facility] 5 14:02:08 Date Recorded Body height Body mass index (BMI) Body weight Oxygen saturation Oxygen saturation in Arterial blood by Pulse oximetry Heart rate Systolic And Diastolic Provider Name and Address Organization Details Last Updated DateTime 4 170.18 cm 23.3 kg/m2 24273.4 1 g 99 % 99 % 96 /min 132/82 mm[Hg] Elieser Forbes MA [facility] 4 12:34:35 Date Recorded Respiratory rate Provider Name a nd Address Organization Details Last Updated DateTime 08/14/2024 16 /min WILIAM Rodríguez Attn: Accounting,[address] [place], [address], [facility] 08/14/2024 15:54:29 Date Recorded Body height Body mass index (BMI) Body weight Oxygen saturation Oxygen saturation in Arterial blood by Pulse oximetry Heart rate Systolic And Diastolic Provider Name and Address Organization Details Last Updated DateTime 5 170.18 cm 22.6 kg/m2 61891.3 g 100 % 100 % 63 /min 138/82 mm[Hg] Elieser Forbes MA [facility] 5 15:31:04 Date Recorded Body height Heart rate Oxygen saturation Oxygen saturation in Arterial blood by Pulse oximetry Systolic And Diastolic Provider Name and Address Organization Details Last Updated DateTime 5 170.18 cm 64 /min 98 % 98 % 138/68 mm[Hg] Alberto Macias MA [facility] 5 11:54:09 Date Recorded Systolic And Diastolic Provider Name and Address Organization Details Last Updated DateTime 01/15/2024 128/70 mm[Hg] WILIAM Rodríguez Attn: Accounting,[address] [place], [address], [facility] 01/15/2024 14:13:51 Date Recorded Body height Respiratory rate Body mass index (BMI) Body weight Oxygen saturation Oxygen saturation in Arterial blood by Pulse oximetry Heart rate Systolic And Diastolic Provider Name and Address Organization Details Last Updated DateTime 4 170.18 cm 18 /min 23.2 kg/m2 58147.6 7 g 98 % 98 % 65 /min 142/80 mm[Hg] Elieser Forbes MA [facility] 4 13:59:28 Social History Question Answer Notes LastModified by [employer] Details LastModified Time Tobacco Smoking Status Former Smoker Elieser Forbes MA null, [facility] 08/02/2023 12:31:17 Do You Have An Advance Directive? Yes Information not available 08/02/2023 Are You Blind [...] No Information not available 08/02/2023 Are You Deaf Or Do You Have Serious Difficulty Hearing? No Information not available 08/02/2023 What Type Of Diet Are You Following? REGULAR Information not available 08/02/2023 Are There Any Guns Present In Your Home? No Information not available 08/02/2023 What Was The Date Of Your Most Recent Tobacco Screening? 08/14/2024 Information not available 08/14/2024 What Is Your Current Pack Years? 10-19packyea [...] Counseling Provided? 08/14/2024 Information not available 08/14/2024 Sex: Female Functional Status Question Answer Note LastModified by Organizat ion Details LastModified Time Do you use any illicit or recreational drugs? No Information not available 08/02/2023 Do you or have you ever used any other forms of tobacco or nicotine? No Information not available 08/02/2023 What is your level of alcohol consumption? None Information not available 08/02/2023 Are you currently employed? No Information not available 07/15/2024 Are you able to care for yourself independently? Yes Information not available 08/02/2023 What is [...] Reflux (GERD) N Cancer N Stroke N High Cholesterol Y Liver Disease N Headaches N Kidney or Bladder Problems N Thyroid Problems Y GI Problems N Skin Problems N Anemia N Heart Attack (IA) N Diabetes N Seizures/Epilepsy N Asthma Y Allergies N Hepatitis N Osteoporosis N Heart Failure N Gynecological History Statement/Question Response Menses Monthly N Current Control Method Other Obstetrics History GPAL:G 0 P 0 0 0 0 Past Encounters Encounter ID Performer Location Encounter Start Date Encounter Closed Date Diagnosis/Indication Diagnosis SNOMED-CT Code Diagnosis ICD10 Code Diagnosis IMO Codes Diagnosis Note [id number] Abilio Morrow MD [facility] [employer] [address] [place] [address] 08/02/2023 12:24:08 08/02/2023 13:20:01 Benign essential hypertension 9772394 I10 stable on verapamil ER 120mg daily. Hypothyroidism 77929606 E03.9 stable on levothyrox ine 75mcg daily Asthma 037307751 J45.90 9 stable on breo and zyrtec Long-term drug therapy 356384557 Z79.899 labs to be faxed and then will call patient with results Acute constipation 6 K59.00 improved/r esolved. she does not want any colon testing. Acid reflux 932016026 K2 1.9 stable refill on PPI therapy. [id number] Abilio Morrow MD [facility] [employer] [address] [place] [address] 01/15/2024 13:48:28 01/15/2024 14:30:38 Benign essential hypertension 7015644 I10 stable on verapamil ER 120mg daily. Hypothyroidism 88873824 E03.9 stable on levothyrox ine 75mcg daily, due for updated thyroid function panel Acid reflux 898759362 K2 1.9 stable refill on PPI therapy. Asthma 361634202 J45.90 9 stable on breo and zyrtec Acute constipation 9006 K59.00 still improved/r esolved. she does not want any colon testing. Long-term drug therapy 441121524 Z79.899 Routine CBC, BMP and LFT ear due Hyperlipidemia 74339251 E78.5 Patient is not on any medication therapy per her decision. We will order a fasting lipid panel for updated evaluation Cough 85505509 R05.9 Refer for chest x-ray to rule out any underlying pneumonia and start prednisone 50 mg daily for 5 days Acute bronchitis 1065354 2 J20.9 Start Augmentin course as directed for 7 days [id number] Abilio Morrow MD [facility] [employer] [address] [place] [address] 07/15/2024 13:50:30 07/15/2024 16:07:05 Benign essential hypertension 7073787 I10 stable on verapamil ER 120mg daily. Hypothyroidism 03600428 E03.9 stable on levothyrox ine 75mcg daily, due for updated lab Acid reflux 418585286 K2 1.9 stable on PPI therapy. Asthma 384189662 J45.90 9 stable on breo and zyrtec Long-term drug therapy 781356379 Z79.899 All routine labs ordered including CBC, BMP and liver panel Hyperlipidemia 90905387 E78.5 Patient is not on any medication therapy per her decision. We will order a fasting lipid panel for updated evaluation Body mass index 20-24 - normal 071977322 Z68.22 BMI 22.4 Carotid bruit present 27 4880325 R09.89 Refer for carotid duplex bilaterall y for soft bruit noted bilaterall y [id number] Abilio Morrow MD [facility] [employer] [address] [place] [address] 08/14/2024 15:21:09 08/14/2024 16:00:27 Localized swelling of left lower leg 8886220566 0339857 R22.42 [id number] Send for stat left lower extremity venous Doppler to rule out any acute DVT as a result of the injury. Update; left lower extremity ultrasound negative for DVT Laceration of lower limb 936523392 S81.819A [id number] Discontinu e mupirocin ointment and start Silvadene cream twice daily with clean dressing. Continue oral antibiotic therapy. [id number] Abilio Morrwo MD [facility] [employer] [address] [place] [address] 08/19/2024 11:48:23 08/27/2024 11:24:33 Blood pressure taking 17673041 Z01.30 [id number] Health Concerns Section Related Observation LastModified by Organization Detai ls LastModified Time None Recorded Concern Status LastModified by Organization Details LastModified Time None Recorded Advance Directives Directive Y: Payers Insurance Date Sequence Insurance Name Policy Number Policy Castillo Covered Member ID Castillo Member ID Guarantor Name 09/30/2024 1 [facility] (MEDICARE REPLACEMENT/A DVANTAGE - PPO) [id number] Tamar Solis [id number] Tamar Solis Notes Date Note Type Note Provider Name and Address Organization Details Recorded Time 4 text/html HypertensionReported by Patienthas been stable on verapamil ER 120mg daily. Asthma F/UReported by Patientstable at this time on breo ellipta 100mcg. ThyroidReported by Patientstable on levothyroxine 75mcg daily. labs are completed but not faxed to us at time of appt. Reflux/GERDReported by Patientstable on omeprazole 40mg daily. WILIAM Rodríguez Attn: Accounting,[address] [place], [address], [facility] 08/14/2023 21:03:48 4 text/html HypertensionReported by Patienthas been stable on verapamil ER 120mg daily. ThyroidReported by Patientstable on levothyroxine 75mcg daily. labs are completed but not faxed to us at time of appt. Asthma F/UReported by Patientstable at this time on breo ellipta 100mcg. Reflux/GERDReported by Patientstable on omeprazole 40mg daily. Upper Respiratory SymptomsReported by PatientUpper Respiratory SymptomsFor quality, patient reportsproductive cough,colored phlegm,congested, andhacking cough. For associated symptoms, patient reportsyellow sputum,wheezing, andfatigue. For location, patient reportschest. For severity, patient reportsmoderate. For duration, patient reportssymptoms lasting over 2 weeks. For context, patient reportsno sick contacts,no foreign travel, andnon-smoker. For modifying factors, patient reportsotc medication. WILIAM Rodríguez Attn: Accounting,[address] [facility], [place], [address], [facility] 02/04/2024 09:07:27 5 text/html HypertensionReported by Patienthas been stable on verapamil ER 120mg daily. ThyroidReported by Patientstable on levothyroxine 75mcg daily. Asthma F/UReported by Patientstable at this time on breo ellipta 100mcg. Her asthma has been doing well without any recent issues Reflux/GERDReported by Patientstable on omeprazole 40mg daily. No acute complaints WILIAM Rodríguez Attn: Accounting,[address], [place], [address], [facility] 08/09/2024 13:52:05 5 text/html Pt says she cut her leg on her recliner trying to push it in. When cut happen she used peroxide and a bandaid. She was started on antibiotic. It is red, open fairly deep and some drainage noted clear, painful at night, still open, using neosporin around area. She was placed on mupirocin ointment as well as Keflex antibiotic course. Following up-to-date WILIAM Rodríguez Attn: Accounting,[address] [facility], [place], [address], [facility] 08/31/2024 20:15:37 OBGyn Episode No OBEpisode recorded.
--- NOTE | 2025-01-15 01:52 | ED_ITS ---
HPI - Head Injury General Chief complaint: Head Injury Stated complaint: Slipped in bathtub and hit head Time Seen by Provider: 01/15/25 00:59 Source: patient Mode of arrival: ambulatory Limitations: no limitations History of Present Illness HPI Narrative: This is a 84 year old female that presents to the ER for a fall with head injury. She fell getting out of the bathtub. Landed on her bottom. Hit the back of her head. She did not lose consciousness. She is not on anticoagulation. Denies vision changes, vomiting, numbness, weakness. Related Data Home Medications ?Medication ?Instructions ?Recorded ?Confirmed ?Last Taken ?Type cephalexin 500 mg capsule mg 08/09/24 Unknown History fluticasone furoate 100 1 inh inhalation DAILY 08/0908/09/24 Unknown History mcg-vilanterol 25 mcg/dose inhalation powder (Breo Ellipta) levothyroxine 75 mcg tablet mcg 08/09/24 Unknown Hist ory mupirocin 2 % topical ointment topical 08/09/24 Unkno wn History verapamil 120 mg tablet,extended mg PO 08/09/24 Unkno wn History release Allergies Allergy/AdvReac Type Severity Reaction Status Date / Time azithromycin Allergy Mild Rash Verified 08/09/24 15:11 Review of Systems Review of Systems: All systems reviewed & are unremarkable except as noted in HPI and below PMFSH Past Medical History Medical History (Updated 01/15/25 @ 02:47 by Leesa Matthews PA-C) Hypertension Hypothyroidism Social History Social History Smoking status: Never smoker Alcohol intake: never Exam Narrative: GENERAL: Elderly, well-nourished, and in no acute distress. HEAD: Normocephalic, hematoma to the posterior scalp with 1cm overlying laceration EYES: PERRLA and EOMI. ENT: Nares clear, no rhinorrhea or epistaxis. Mucous membranes moist. Oropharynx without tonsillar hypertrophy exudate or other lesions. Bilateral TMs pearly vaughan non-bulging NECK: Supple. No adenopathy or masses. CHEST: Clear to auscultation. No respiratory distress. No wheezes rales or rhonchi HEART: Regular rate and rhythm. No murmur heard. Normal peripheral pulses. EXTREMITIES: Normal range of motion. No edema or obvious deformity. SKIN: Warm, dry, no rash. NEURO: No focal deficits. Alert and oriented x3. Cranial nerves 2-12 grossly intact PSYCH: Normal mood and affect Course Course Emergency Course: Patient and family updated on workup and agree with plan of care Vital Signs Vital signs: Vital Signs Temperature 98.2 F 01/15/25 00:13 Pulse Rate 79 01/15/25 00:13 Respiratory Rate 16 01/15/25 00:13 Blood Pressure 142/55 H 01/15/25 00:13 Pulse Oximetry 94 01/15/25 00:13 Oxygen Delivery Room Air 01/15/25 00:13 Temperature 98.2 F 01/15/25 00:13 Pulse Rate 79 01/15/25 00:13 Respiratory Rate 16 01/15/25 00:13 Blood Pressure 142/55 H 01/15/25 00:13 Pulse Oximetry 94 01/15/25 00:13 Oxygen Delivery Room Air 01/15/25 00:13 Procedures Laceration Laceration 1: Date: 01/15/25 Time: 02:56 Site: scalp Size (cm): 1 Description: linear Depth: simple, single layer ====== Skin Level ====== Skin layer closed with: dermabond ====== Subcutaneous Layer ====== ====== Muscle Layer ====== ====== Tendon Layer ====== MDM - Head Injury MDM Narrative Medical decision making narrative: Patient presents the emergency department after a fall with head injury and low back/sacral pain. Her vitals are stable. She is neurologically intact. CT brain, cervical spine, pelvis without acute findings. Patient family updated on workup. She is to follow up with provider. She was given warnings to return the ER Differential Diagnosis Differential diagnosis: Likely concussion without loss of consciousness, closed head injury and subdural hematoma Imaging Data Radiologist's impression: CT brain: No acute intracranial hemorrhage. No midline shift or mass effect CT cervical spine: No acute fracture or subluxation of the cervical spine CT pelvis: No hip or pelvic fracture. Intact sacrum Critical Care Time Critical Care Time Critical Care Time: No Discharge Plan Discharge Clinical Impression: Laceration Closed head injury Qualifiers: Encounter type: initial encounter Qualified Code(s): S09.90XA - Unspecified injury of head, initial encounter Patient Disposition: Home Condition: Stable Instructions: Head Injury (ED), Contusion in Adults (ED) Additional Instructions: Return to the emergency department if you experience fever, chest pain, shortness of breath, abdominal pain with nausea and vomiting, weakness, numbness, or any other symptoms that are concerning to you. Rest. Ice to the area. Oozn-fje-yemydlm pain medication as needed Follow up with your primary care doctor Patient Language: Romansh Prescriptions: No Action verapamil 120 mg tablet extended release PO levothyroxine 75 mcg tablet fluticasone furoate-vilanterol [Breo Ellipta] 100-25 mcg/dose blister with device 1 inh inhalation DAILY sulfamethoxazole-trimethoprim [Bactrim] 400-80 mg tablet 1 tablet PO BID 10 Days Qty: 20 0RF cephalexin 500 mg capsule mupirocin 2 % ointment TOPICAL Follow-up/Referrals: Ivan,BAM Berkowitz [Primary Care Provider, Unknown]
[2025-01-15] MEDS: IBUPROFEN 600 MG TABLET PO (02:49)
[2025-01-15] MEDS: HYDROGEN PEROXIDE 3% SOLN(*SP) 473 ML BOTTLE (02:50)
[2025-01-15] MEDS: TETANUS,DIPHTHERIA,AC PERTUSSIS ADULT (0.5 ML) BOOSTRIX IM (02:50)
== END 2025-01-15 03:20 | disposition home or self-care (01) ==
PROVIDERS: Emergency Provider Physician Assistant; PCP Physician Assistant
DX: S01.01XA Laceration without foreign body of scalp, initial encounter (principal); Z23 Encounter for immunization; I10 Essential (primary) hypertension; E03.9 Hypothyroidism, unspecified; Z79.899 Other long term (current) drug therapy; W18.2XXA Fall in (into) shower or empty bathtub, initial encounter
CPT/HCPCS: 12001; 70450; 72125; 72192; 90471; 90715; 99284; A9270